=== PATIENT | female | born 1945 | race Caucasian/White ===

== ENCOUNTER 2017-10-11 09:58 | Inpatient (IN) ==
[2017-10-11] MEDS ORDERED: Ipratropium/Albuterol Neb 3 ML IH ONE (10:03)
[2017-10-11] MEDS ORDERED: Furosemide 40 MG/4 ML VIAL IVP ONE (10:03)
[2017-10-11] MEDS ORDERED: methylPREDNISolone 125 MG/2 ML VIAL IVP ONE (10:03)
--- NOTE | 2017-10-11 10:07 | Emergency Department Note ---
Disposition Clinical Impression: Congestive heart failure Qualifiers: Heart failure type: unspecified Heart failure chronicity: acute Qualified Code( s): I50.9 - Heart failure, unspecified Disposition: Admitted As Inpatient Condition: Fair Referrals: Cady Bowles MD [Primary Care Provider] - Time of Disposition: 11:56 SOB HPI - General Stated Complaint: ISAIAS Time Seen by Provider: 10/11/17 10:03 Source: patient, EMS Mode of arrival: EMS Limitations: no limitations Nursing Notes Reviewed: Yes Vital Signs Reviewed: Yes - History of Present Illness 72-year-old female with a history of COPD and CHF comes in complaining of increasing shortness of breath over the last 4-5 days. Cough that was productive of yellow sputum and did have some blood-tinged this morning. Squad was called and gave her breathing treatment prior to arrival which did improve her somewhat. Echocardiogram of in 2016 shows an EF of 45%. Pt Subjective Complaint: shortness of breath, cough Onset (ago): day(s) Context: recent illness Severity: moderate Improves with: bronchodilators Worsens with: lying flat, exertion Known history of: COPD, congestive heart failure Associated symptoms: Reports: fever, cough (Low-grade) Treatment prior to arrival: oxygen, bronchodilator Cough present: Yes Cough Description: Involuntary Cough Frequency: Intermittent Sputum Color: Yellow, [place] Tinged - Related Data Home Medications Medication Instructions Recorded Confirmed Acetaminophen [Tylenol Arthritis] 650 mg PO Q8H PRN 10/15/16 10/11/17 Albuterol Sulfate [Proair Hfa] 2 puff IH Q4H PRN 10/15/16 10/11/17 Amitriptyline [Elavil] 50 mg PO HS 10/15/16 10/11/17 Aspirin 81 mg PO DAILY 10/15/16 10/11/17 Atorvastatin Calcium [Lipitor] 20 mg PO DAILY 10/15/16 10/11/17 Bumetanide [Bumex] 1 mg PO DAILY 10/15/16 10/11/17 Cholecalciferol (D-3) [Vitamin D] 2,000 unit PO DAILY 10/15/16 10/11/17 Clotrimazole/Betameth Dip CRM 1 appl TP BID 10/15/16 10/11/17 [Lotrisone CRM] Duloxetine HCl [Cymbalta] 60 mg PO DAILY 10/15/16 10/11/17 Gabapentin [Neurontin] 800 mg PO TID 10/15/16 10/11/17 Levothyroxine [Synthroid] 75 mcg PO DAILY 10/15/16 10/11/17 OXcarbazepine [Oxcarbazepine] 600 mg PO BID 10/15/16 10/11/17 Omeprazole [PriLOSEC] 40 mg PO DAILY 10/15/16 10/11/17 Repaglinide [Prandin] 1 mg PO BID 10/15/16 10/11/17 Tramadol HCl [Ultram] 50 mg PO QID PRN 10/15/16 10/11/17 Valsartan [Diovan] 320 mg PO DAILY 10/15/16 10/11/17 Warfarin [Coumadin] 2.5 mg PO MOFR 10/15/16 10/11/17 Warfarin [Coumadin] 5 mg PO SUTUWETHSA 10/15/16 10/11/17 metFORMIN [Glucophage] 1,000 mg PO BIDWM 10/15/16 10/11/17 Diltiazem HCl [Diltiazem 24Hr Cd] 360 mg PO DAILY 10/11/17 10/11/17 Insulin Glargine,Hum.rec.anlog 25 unit SQ HS 10/11/17 10/11/17 [Basaglar Kwikpen U-100] Metoprolol Succinate [Toprol Xl] 50 mg PO DAILY 10/11/17 10/11/17 Allergies Allergy/AdvReac Type Severity Reaction Status Date / Time codeine Allergy Headache Verified 04/10/15 14:48 lisinopril Allergy Cough Verified 04/10/15 14:48 carbamazepine [From Tegretol] AdvReac Anaphylaxis Verified 04/10/15 14:48 All systems ED: reviewed and negative except as stated. Constitutional: Denies: fever, chills, weakness, weight change Eyes: Denies: eye pain, eye discharge, vision change ENT ED: Denies: ear pain, throat pain, dental pain, hearing loss, epistaxis, congestion, dysphagia Cardiovascular: Denies: chest pain, palpitations, dyspnea on exertion, edema, syncope Respiratory: Reports: cough, dyspnea, wheezes. Denies: hemoptysis, stridor Gastrointestinal: Denies: abdominal pain, nausea, vomiting, diarrhea, constipation, hematemesis, melena, hematochezia Genitourinary: Denies: dysuria, frequency, hematuria, discharge Musculoskeletal: Denies: back pain, neck pain, arthralgia, myalgia Integumentary: Denies: rash, abrasion, lesions Neurological: Denies: headache, weakness, numbness, paresthesias, confusion, abnormal gait, vertigo Psychiatric: Denies: anxiety, depression, suicidal thoughts, homicidal thoughts , auditory hallucinations, visual hallucinations Endocrine: Denies: fatigue Hematological/Lymphatic: Denies: easy bleeding, easy bruising Allergic/Immunologic: Denies: facial swelling, urticaria Past Medical History - Past Medical History Psychiatric history: Reports: no psych history - Social History Smoking Status: Never smoker Smokeless Tobacco Status: No Alcohol use: Reports: none Drug use: Reports: none Physical Exam - General Limitations: no limitations General appearance: alert, in no apparent distress - Head Head exam: atraumatic, normocephalic, normal inspection - Eye Eye exam: Present: normal appearance, PERRL, EOMI - ENT ENT exam: normal exam, normal oropharynx, mucous membranes moist - Neck Neck exam: Present: normal inspection, full ROM, trachea midline - Chest Chest inspection: Present: normal inspection, symmetric chest wall rise - Respiratory Respiratory exam: Present: wheezes, accessory muscle use, prolonged expiratory phase - Cardiovascular Cardiovascular exam: Present: regular rate, normal rhythm, normal heart sounds - Abdominal Exam Abdominal exam: Present: soft, Non-Tender. Absent: tenderness, distention, guarding, rebound, rigidity - Extremities Exam Extremities exam: Present: normal inspection, full ROM. Absent: tenderness, pedal edema - Expanded Lower Extremity Exam Neurovascular/Tendon exam: Absent: motor deficit, sensory deficit, tendon deficit Gait: observed and normal - Back Exam Back exam: Present: normal inspection, full ROM. Absent: tenderness - Neurological Exam Neurological exam: Present: alert, oriented X3 - Psychiatric Psychiatric exam: Present: normal affect, normal mood - Skin Skin exam: Present: warm, dry, intact, normal color Course - Reevaluation(s) Reevaluation #1: 72-year-old female with history CHF comes in with increasing shortness of breath. Chest x-ray shows congestive changes BNP is elevated. Patient will be admitted for further evaluation and treatment. Time: 11:56 - Consultations Consultation #1: Discussed with Dr. Duncan, admit Time: 13:22 Vital Signs Temperature 98.7 F 10/11/17 10:00 Pulse Rate 85 10/11/17 10:00 Respiratory Rate 29 10/11/17 10:00 Blood Pressure 173/87 10/11/17 10:00 O2 Sat by Pulse Oximetry 91 10/11/17 10:00 Temperature 98.7 F 10/11/17 10:00 Pulse Rate 85 10/11/17 10:00 Respiratory Rate 22 10/11/17 10:14 Blood Pressure 173/87 10/11/17 10:00 O2 Sat by Pulse Oximetry 92 10/11/17 10:14 Oxygen Delivery Oxygen Delivery Nasal Cannula Shortness of Breath/Dyspnea - Lab Data Result diagrams: 10/11/17 10:10 10/11/17 10:10 Lab Results 10/11/17 10/11/17 10/11/17 Range/Units 10:10 10:10 10:10 WBC 10.0 (4.3-11.1) K/mcL RBC 4.35 (3.82-4.97) M/mcL Hgb 11.5 (11.5-15.4) g/dL Hct 35.9 (35.3-44.9) % MCV 82.5 L (83.0-100.0) fL MCH 26.4 L (28.0-33.3) pg MCHC 32.0 (31.6-35.5) g/dL RDW 17.6 H (11.5-14.5) % Plt Count 294 (140-400) K/mcL MPV 9.5 (9.4-12.4) fL Immature Gran % 0.3 (0-4) % Seg Neutrophils % 62.6 % Lymphocytes % 23.7 % Monocytes % 11.7 % Eosinophils % 1.2 % Basophils % 0.5 % Neutrophils # 6.2 (1.6-8.9) K/mcL Lymphocytes # 2.4 (0.6-4.6) K/mcL Monocytes # 1.2 (0.0-1.3) K/mcL Eosinophils # 0.1 (0.0-0.6) K/mcL Basophils # 0.1 (0.0-0.2) K/mcL Sodium 138 (136-145) mEq/L Potassium 3.7 (3.5-5.1) mEq/L Chloride 99 (98-107) mEq/L Carbon Dioxide 28 (23-29) mEq/L BUN 10 (8-23) mg/dL Creatinine 0.53 L (0.60-1.20) mg/dL Est GFR ( Amer) > 60 (> 60) Est GFR (Non-Af Amer) > 60 (> 60) BUN/Creatinine Ratio 19 (6-26) Glucose 192 H (70-105) mg/dL Calculated Osmolality 290 (280-300) Lactic Acid 3.0 H (0.5-2.2) mmol/L Calcium 9.1 (8.6-10.3) mg/dL Troponin I < 0.03 (< 0.04) ng/mL B-Natriuretic Peptide (Less than 100) pg/mL Urine Color (Yellow) Urine Clarity (Clear) Urine pH (5.0-8.0) pH Units Ur Specific [place] (1.010-1.025) Urine Protein (Neg-Trace) mg/dL Urine Glucose (UA) (Normal) mg/dL Urine Ketones (Negative) mg/dL Urine Blood (Negative) Urine Nitrite (Negative) Urine Bilirubin (Negative) Urine Urobilinogen (Normal) mg/dL Ur Leukocyte Esterase (Negative) Urine Microscopic RBC (0-3) per hpf Urine Microscopic WBC (0-3) per hpf Ur Squamous Epith Cells (None-Few) per lpf Urine Bacteria (None-Few) per hpf Hyaline Casts (None-Few) per lpf Ur Culture Indicated? (NO) 10/11/17 10/11/17 10/11/17 Range/Units 10:10 10:36 12:32 WBC (4.3-11.1) K/mcL RBC (3.82-4.97) M/mcL Hgb (11.5-15.4) g/dL Hct (35.3-44.9) % MCV (83.0-100.0) fL MCH (28.0-33.3) pg MCHC (31.6-35.5) g/dL RDW (11.5-14.5) % Plt Count (140-400) K/mcL MPV (9.4-12.4) fL Immature Gran % (0-4) % Seg Neutrophils % % Lymphocytes % % Monocytes % % Eosinophils % % Basophils % % Neutrophils # (1.6-8.9) K/mcL Lymphocytes # (0.6-4.6) K/mcL Monocytes # (0.0-1.3) K/mcL Eosinophils # (0.0-0.6) K/mcL Basophils # (0.0-0.2) K/mcL Sodium (136-145) mEq/L Potassium (3.5-5.1) mEq/L Chloride (98-107) mEq/L Carbon Dioxide (23-29) mEq/L BUN (8-23) mg/dL Creatinine (0.60-1.20) mg/dL Est GFR ( Amer) (> 60) Est GFR (Non-Af Amer) (> 60) BUN/Creatinine Ratio (6-26) Glucose (70-105) mg/dL Calculated Osmolality (280-300) Lactic Acid 4.1 H* (0.5-2.2) mmol/L Calcium (8.6-10.3) mg/dL Troponin I (< 0.04) ng/mL B-Natriuretic Peptide 417 H (Less than 100) pg/mL Urine Color Yellow (Yellow) Urine Clarity Cloudy A (Clear) Urine pH 6.0 (5.0-8.0) pH Units Ur Specific [place] 1.019 (1.010-1.025) Urine Protein >=300 H (Neg-Trace) mg/dL Urine Glucose (UA) Normal (Normal) mg/dL Urine Ketones Negative (Negative) mg/dL Urine Blood Trace H (Negative) Urine Nitrite Negative (Negative) Urine Bilirubin Negative (Negative) Urine Urobilinogen Normal (Normal) mg/dL Ur Leukocyte Esterase Moderate H (Negative) Urine Microscopic RBC 0-3 (0-3) per hpf Urine Microscopic WBC TNTC H (0-3) per hpf Ur Squamous Epith Cells Few (None-Few) per lpf Urine Bacteria Many H (None-Few) per hpf Hyaline Casts None Seen (None-Few) per lpf Ur Culture Indicated? YES A (NO) - EKG Data EKG attestation: Yes I reviewed and interpreted this EKG. EKG results narrative: Electronic pacemaker.
[2017-10-11 10:27] LABS: Basophils # 0.1 K/mcL (0.0-0.2); Basophils % 0.5 %; Eosinophils # 0.1 K/mcL (0.0-0.6); Eosinophils % 1.2 %; Hematocrit 35.9 % (35.3-44.9); Hemoglobin 11.5 g/dL (11.5-15.4); Immature Granulocytes % 0.3 % (0-4); Lymphocytes # 2.4 K/mcL (0.6-4.6); Lymphocytes % 23.7 %; Mean Corpuscular Hemoglobin 26.4 pg (28.0-33.3); Mean Corpuscular Volume 82.5 fL (83.0-100.0); Mean Platelet Volume 9.5 fL (9.4-12.4); Monocytes # 1.2 K/mcL (0.0-1.3); Monocytes % 11.7 %; Neutrophils # 6.2 K/mcL (1.6-8.9); Platelet Count 294 K/mcL (140-400); Red Blood Count 4.35 M/mcL (3.82-4.97); Red Cell Distribution Width 17.6 % (11.5-14.5); Segmented Neutrophils % 62.6 %
[2017-10-11 10:52] LABS: BUN/Creatinine Ratio 19 (6-26); Blood Urea Nitrogen 10 mg/dL (8-23); Calcium 9.1 mg/dL (8.6-10.3); Chloride 99 mEq/L (98-107); Glucose 192 mg/dL (70-105); Osmolality,Calculated 290 (280-300); Potassium 3.7 mEq/L (3.5-5.1); Sodium 138 mEq/L (136-145); Troponin I < 0.03 ng/mL (< 0.04); eGFR For African Americans > 60 (> 60); eGFR For Non-African Americans > 60 (> 60)
[2017-10-11 11:16] LABS: Carbon Dioxide 28 mEq/L (23-29)
[2017-10-11 11:59] LABS: Bilirubin,Urine Negative (Negative); Blood,Urine Trace (Negative); Clarity,Urine Cloudy (Clear); Color,Urine Yellow (Yellow); Glucose,Urine (UA) Normal (Normal); Ketones,Urine Negative (Negative); Leukocyte Esterase,Urine Moderate (Negative); Nitrite,Urine Negative (Negative); Protein,Urine >=300 mg/dL (Neg-Trace); Specific Gravity,Urine 1.019 (1.010-1.025); Urobilinogen,Urine Normal (Normal)
[2017-10-11 12:02] LABS: Bacteria,Urine Many per hpf (None-Few); Hyaline Casts,Urine None Seen per lpf (None-Few); RBC,Urine 0-3 per hpf (0-3); Squamous Epithelial Cell,Urine Few per lpf (None-Few); WBC,Urine TNTC per hpf (0-3)
[2017-10-11] MEDS ORDERED: cefTRIAXone 1,000 MG in Water for inj. (sterile) 20 ML 10 ML IVP ONE (13:31)
[2017-10-11] MEDS ORDERED: Naloxone 0.4 MG/ML INJ IVP PRN (16:26)
[2017-10-11] MEDS ORDERED: traMADol 50 MG TABLET PO PRN (16:31)
--- NOTE | 2017-10-11 16:43 | Internal Med History&Physical ---
Date of Encounter: 10/11/17 Time of Encounter: 16:38 Internal Medicine - H&P: HPI Chief complaint: shortness of breath Admitted From: Emergency Dept Plans for Post Hospital Care: Home History of present illness: Ms. Watson is a 72 year old female was a background medical history of her diabetes, hypertension, dyslipidemia, atrial fibrillation, presently on the Coumadin, morbid obesity. Patient came to emergency room for worsening shortness of breath for past 1 week. In last 24 hours her shortness of breath has gradually worsened. Patient was unable to walk even a few steps at home and that was the reason they decided to come to emergency room for further evaluation. Patient denies chest pain, nausea, vomiting, dizziness and diarrhea. Workup in the emergency room: Patient was evaluated in the emergency room. Baseline labs were drawn. Chest x-ray was suggestive of a pulmonary edema. Urine analysis was suggestive of a urinary tract infection. Reason for admission: Acute decompensated congestive heart failure likely secondary to the underlying urinary tract infection. Family history: Noncontributory. Past Med Surg Social Fam HX - Past Medical History Medical history: arthritis, atrial fibrillation, CHF, COPD, DVT, diabetes, GERD , hyperlipidemia, hypertension, thyroid disease, venous stasis Psychiatric history: no psych history - Past Surgical History Surgical History: appendectomy, hysterectomy - Social History Smoking Status: Never smoker Smokeless Tobacco Status: No Alcohol use: none Drug use: none - Family History Mother Living Status: Age at : 60 Cause of : [place] Hx Family Cardiac Disorders: Yes Father Living Status: Age at : 80 Cause of : [place] Hx Family Cardiac Disorders: Yes Hx Family Respiratory Disorders: Yes Internal Medicine - H&P: Meds Acetaminophen [Tylenol Arthritis] 650 mg PO Q8H PRN 10/15/16 [History] Albuterol Sulfate [Proair Hfa] 2 puff IH Q4H PRN 10/15/16 [History] Amitriptyline [Elavil] 50 mg PO HS 10/15/16 [History] Aspirin 81 mg PO DAILY 10/15/16 [History] Atorvastatin Calcium [Lipitor] 20 mg PO DAILY 10/15/16 [History] Bumetanide [Bumex] 1 mg PO DAILY 10/15/16 [History] Cholecalciferol (D-3) [Vitamin D] 2,000 unit PO DAILY 10/15/16 [History] Clotrimazole/Betameth Dip CRM [Lotrisone CRM] 1 appl TP BID 10/15/16 [History] Duloxetine HCl [Cymbalta] 60 mg PO DAILY 10/15/16 [History] Gabapentin [Neurontin] 800 mg PO TID 10/15/16 [History] Levothyroxine [Synthroid] 75 mcg PO DAILY 10/15/16 [History] OXcarbazepine [Oxcarbazepine] 600 mg PO BID 10/15/16 [History] Omeprazole [PriLOSEC] 40 mg PO DAILY 10/15/16 [History] Repaglinide [Prandin] 1 mg PO BID 10/15/16 [History] Tramadol HCl [Ultram] 50 mg PO QID PRN 10/15/16 [History] Valsartan [Diovan] 320 mg PO DAILY 10/15/16 [History] Warfarin [Coumadin] 2.5 mg PO MOFR 10/15/16 [History] Warfarin [Coumadin] 5 mg PO SUTUWETHSA 10/15/16 [History] metFORMIN [Glucophage] 1,000 mg PO BIDWM 10/15/16 [History] Diltiazem HCl [Diltiazem 24Hr Cd] 360 mg PO DAILY 10/11/17 [History] Insulin Glargine,Hum.rec.anlog [Basaglar Kwikpen U-100] 25 unit SQ HS 10/11/17 [ History] Metoprolol Succinate [Toprol Xl] 50 mg PO DAILY 10/11/17 [History] 3 Allergy/AdvReac Type Severity Reaction Status Date / Time codeine Allergy Headache Verified 04/10/15 14:48 lisinopril Allergy Cough Verified 04/10/15 14:48 carbamazepine [From Tegretol] AdvReac Anaphylaxis Verified 04/10/15 14:48 All Systems PM: A 10-system review of systems was performed and is negative for pertinent findings except as documented above in the HPI. - Constitutional Constitutional: no chills, no fever(s), no night sweats - EENT Eyes: no change in vision, no discharge, no pain, no photophobia Ears: no ear discharge, no ear pain, no tinnitus Nose, mouth and throat: no dysphagia, no nasal discharge, no neck pain, no sore throat - Cardiovascular Cardiovascular ROS IM: dyspnea, dyspnea on exertion, no chest pain, no diaphoresis, no lightheadedness, no palpitations, no syncope - Respiratory Respiratory: no cough, no dyspnea, no wheezing, no excessive phlegm production - Gastrointestinal Gastrointestinal: no abdominal pain, no diarrhea, no hematemesis, no hematochezia, no melena, no nausea, no vomiting - Genitourinary Genitourinary: dysuria, no change in urinary stream, no flank pain, no hematuria - Musculoskeletal Musculoskeletal ROS IM: no numbness, no tingling - Integumentary Integumentary IM: no rash, no unusual bruising - Neurological Neurological ROS: no confusion, no convulsions, no focal weakness, no numbness, no tingling, no tremor(s) - Hematologic/Lymphatic Hematologic/Lymphatic: no easy bruising - Constitutional Vitals: Temp Pulse Resp BP Pulse Ox 100.2 F H 82 44 159/74 90 10/11/17 15:05 10/11/17 15:05 10/11/17 15:05 10/11/17 15:05 10/11/17 15:12 General appearance: Present: A&O X 3, pleasant, no acute distress, answers questions appropriately - Head Head exam: Present: atraumatic, normocephalic - Eye Eye exam: Present: PERRL, conjuntiva pink, sclera anicteric Pupils: Present: PERRL - Neck Neck exam general surgery: Present: supple, trachea midline. Absent: lymphadenopathy - Respiratory Respiratory exam: Present: CTAB. Absent: accessory muscle use, rales, rhonchi, wheezes - Cardiovascular Cardiovascular exam: Present: RRR, +S1, +S2. Absent: diastolic murmur, gallop, rubs, systolic murmur - GI/Abdominal GI/Abdominal exam: Present: normal bowel sounds, soft, no peritoneal signs. Absent: distended, tenderness - Extremities Exam Extremities exam: Present: warm, radial pulses palpable and symmetrical. Absent : calf tenderness, cyanotic, pedal edema - Neurological Exam Neurological exam: Present: CN II-XII intact, oriented X3, no focal deficits. Absent: pronater drift, facial droop, speech deficit - Skin Skin exam: Present: dry, intact Internal Med - H&P Results - Labs CBC & Chem 7: 10/11/17 10:10 10/11/17 10:10 - Assessment and plan (1) Congestive heart failure Current Visit: Yes Status: Acute Assessment and plan: 72/female Patient does have a systolic congestive heart failure as per the echocardiogram in 2016. At this time patient has a underlying urinary tract infection which must have an elevated this systolic congestive heart failure. We will continue intravenous Lasix 40 mg twice a day. We will check labs tomorrow morning for potassium. Close monitoring of the respiratory status. Echocardiogram ordered. I examined this patient in the emergency department room #33. Patient's family member was at bedside. Plan of care explained to them at length. They verbalize understanding. Qualifiers: Heart failure type: unspecified Heart failure chronicity: acute Qualified Code(s): I50.9 - Heart failure, unspecified (2) Atrial fibrillation Current Visit: No Status: Acute Assessment and plan: Patient is known to have atrial flutter ablation. At this point patient is in controlled ventricular rate. Anticoagulation: Coumadin Rate control: Cardizem/metoprolol. Qualifiers: Atrial fibrillation type: paroxysmal Qualified Code(s): I48.0 - Paroxysmal atrial fibrillation (3) Urinary tract infection Current Visit: Yes Status: Acute Assessment and plan: Patient does have a urinary tract infection. patient complains of dysuria. Urine analysis and urine culture sent. Patient was started on ceftriaxone. Noted that patient has a elevated lactic acid upon admission. We will closely monitor her lactic acid. I will [place] this case to night team for a further follow-up. Qualifiers: Urinary tract infection type: acute cystitis Hematuria presence: without hematuria Qualified Code(s): N30.00 - Acute cystitis without hematuria (4) Diabetes mellitus Current Visit: Yes Status: Acute Assessment and plan: Patient is known to have her type 2 diabetes mellitus. We will resume her home insulin dose. At this point we will follow the instructions from the subcutaneous insulin order set. Qualifiers: Diabetes mellitus type: type 2 Diabetes mellitus usp insulin use: without usp use Diabetes mellitus complication status: with other specified complication Qualified Code(s): E11.69 - Type 2 diabetes mellitus with other specified complication (5) Hypertension Current Visit: Yes Status: Acute Assessment and plan: Patient is known to have essential hypertension. We will resume her home medication. Close monitoring of the blood pressure. Qualifiers: Hypertension type: essential hypertension Qualified Code(s): I10 - Essential (primary) hypertension (6) DVT prophylaxis Current Visit: Yes Status: Acute Assessment and plan: Coumadin Medical decision making: Suspect this patient has a moderate to severe risk of worsening in spite of being on appropriate medication due to the underlying chronic comorbid condition. - Time Spent With Patient Total time spent is greater than 50% in coordination of care (as documented) at patient's floor/unit and/or counseling patient:
[2017-10-11] MEDS ORDERED: D5% in Water 1,000 ML IVC PRN (16:44)
[2017-10-11] MEDS ORDERED: Dextrose Gel 15 GM/37.5 ML TUBE PO PRN ×2 (16:44)
[2017-10-11] MEDS ORDERED: *HR* Dextrose 50 % in Water (Syg) 50 ML SYRINGE IVP PRN (16:44)
[2017-10-11] MEDS ORDERED: Ipratropium/Albuterol Neb 3 ML IH PRN (17:05)
[2017-10-11 17:38] LABS: ABG Base Excess 4 mEq/L (-2 to 3); ABG HCO3 29 mEq/L (21-27); ABG Oxygen Saturation 96 % (95-98); ABG PCO2 44 mmHg (35-45); ABG PH 7.43 pH Units (7.32-7.45); ABG PO2 80 mmHg (85-104); ABG TCO2 30 mEq/L (20-26)
[2017-10-11] MEDS ORDERED: *HR* Warfarin 5 MG TABLET PO SCH (18:00)
[2017-10-11] MEDS ORDERED: NON-FORMULARY MEDICATION 1 EACH EACH (Insulin Glargine,Hum.Rec.Anlog [Basaglar Kwikpen U-1 SQ SCH (21:00)
[2017-10-11] MEDS: OXcarbazepine 150 MG TABLET PO SCH (21:35)
[2017-10-11] MEDS: Insulin DETEMIR 100 UNIT/ML X5UNITS SQ SCH (21:36)
[2017-10-11] MEDS: Clotrimazole/Betameth Dip CRM 45 APPL/45 GM TUBE TP SCH (21:36)
[2017-10-11] MEDS: Gabapentin 400 MG CAPSULE PO SCH (21:36)
[2017-10-11] MEDS: Furosemide 40 MG/4 ML VIAL IVP SCH (21:36)
[2017-10-11] MEDS: *HR* Repaglinide 1 MG TABLET PO SCH (21:36)
[2017-10-12 03:23] LABS: Basophils % 0.2 %; Hematocrit 32.2 % (35.3-44.9); Hemoglobin 10.2 g/dL (11.5-15.4); Immature Granulocytes % 0.8 % (0-4); Lymphocytes # 1.2 K/mcL (0.6-4.6); Mean Corpuscular HGB Conc 31.7 g/dL (31.6-35.5); Mean Corpuscular Hemoglobin 25.8 pg (28.0-33.3); Mean Corpuscular Volume 81.3 fL (83.0-100.0); Mean Platelet Volume 9.8 fL (9.4-12.4); Monocytes # 1.1 K/mcL (0.0-1.3); Monocytes % 11.4 %; Neutrophils # 7.3 K/mcL (1.6-8.9); Nucleated Red Blood Cells 0.2 /100 WBC (0); Platelet Count 276 K/mcL (140-400); Red Blood Count 3.96 M/mcL (3.82-4.97); Red Cell Distribution Width 17.6 % (11.5-14.5); Segmented Neutrophils % 75.6 %
[2017-10-12 03:24] LABS: Prothrombin Time 33.5 Seconds (9.4-12.1)
[2017-10-12 03:26] LABS: Activated Partial Thrombo Time 37.4 Seconds (26.0-36.0)
[2017-10-12 03:44] LABS: Troponin I < 0.03 ng/mL (< 0.04)
[2017-10-12 03:45] LABS: Alanine Aminotransferase 14 Units/L (7-52); Albumin 3.4 g/dL (3.5-5.7); Albumin/Globulin Ratio 1.2 (1.1-2.2); Alkaline Phosphatase 64 Units/L (34-104); Aspartate Amino Transferase 22 Units/L (13-39); BUN/Creatinine Ratio 20 (6-26); Bilirubin,Total 0.2 mg/dL (0.3-1.0); Blood Urea Nitrogen 13 mg/dL (8-23); Calcium 8.6 mg/dL (8.6-10.3); Carbon Dioxide 30 mEq/L (23-29); Chloride 100 mEq/L (98-107); Chol/HDL Ratio 3.2 (0-4.9); Cholesterol 136 mg/dL (< 200); Globulin 2.9 g/dL (2.4-3.5); Glucose 179 mg/dL (70-105); HDL Cholesterol 43 mg/dL (40-59); LDL Cholesterol,Calculated 72 mg/dL (0-99); Magnesium 1.5 mg/dL (1.6-2.6); Osmolality,Calculated 291 (280-300); Phosphorous 3.2 mg/dL (2.7-4.5); Potassium 3.7 mEq/L (3.5-5.1); Sodium 138 mEq/L (136-145); Total Protein 6.3 g/dL (6.4-8.9); Triglycerides 107 mg/dL (< 150); eGFR For African Americans > 60 (> 60); eGFR For Non-African Americans > 60 (> 60)
[2017-10-12] MEDS ORDERED: *HR* Warfarin 5 MG TABLET PO SCH (09:00)
[2017-10-12] MEDS: *HR* Repaglinide 1 MG TABLET PO SCH ×2 (10:50→21:05)
[2017-10-12] MEDS: Gabapentin 400 MG CAPSULE PO SCH ×3 (10:50→21:05)
[2017-10-12] MEDS: OXcarbazepine 150 MG TABLET PO SCH ×2 (10:50→21:05)
[2017-10-12] MEDS: Diltiazem CD (24hr) 180 MG CAPSULE PO SCH (10:50)
[2017-10-12] MEDS: Furosemide 40 MG/4 ML VIAL IVP SCH ×2 (10:51→21:05)
[2017-10-12] MEDS: cefTRIAXone 1,000 MG in Water for inj. (sterile) 20 ML 10 ML IVP SCH (10:51)
[2017-10-12] MEDS: Valsartan 160 MG TABLET PO SCH (10:51)
[2017-10-12] MEDS: Aspirin 81 MG TAB.CHEW PO SCH (10:51)
[2017-10-12] MEDS: Metoprolol XL (24 HR) Succ 50 MG TAB.ER.24H PO SCH (10:51)
[2017-10-12] MEDS: Insulin LISPRO 300 UNITS/3 ML VIAL SQ SCH ×3 (10:53→20:54)
[2017-10-12] MEDS: Clotrimazole/Betameth Dip CRM 45 APPL/45 GM TUBE TP SCH ×2 (11:17→21:06)
--- NOTE | 2017-10-12 13:15 | Electrocardiograph Report ---
[address] [address] Test Date: 2017-10-11 Pat Name: Julissa Watson Department: 104 Room: 2N04 Gender: F Tariff Clerk: [id number] : [id number] Requested By: Kieran Jolley Order Number: [id number] Reading MD: Bryce Arellano Measurements Intervals [place] Rate: 86 P: 105 MI: 94 QRS: 22 QRSD: 176 T: 106 QT: 415 QTc: 459 Interpretive Statements PROBABLY SINUS RHYTHM WITH PVCS LEFT BUNDLE BRANCH BLOCK BASELINE ARTIFACT COMPLICATES ACCURATE INTERPRETATION Electronically Signed On 10-12-2017 10:13:55 EDT by Bryce Arellano
--- NOTE | 2017-10-12 15:14 | Internal Med Progress Note ---
Date of Encounter: 10/12/17 Time of Encounter: 15:12 - Assessment and plan (1) Congestive heart failure Current Visit: Yes Status: Acute Assessment and plan: Acute on chronic hypoxic respiratory failure secondary to Acute pulmonary edema likely secondary to acute diastolic dysfunction in combination with a possible acute COPD exacerbation due to acute bacterial bronchitis (COPD never diagnosed) Patient does have a systolic congestive heart failure as per the echocardiogram in 2016, ejection fraction was 45% back then New echocardiogram shows an ejection fraction of 55-60% Strict I's and O's and daily weight continue intravenous Lasix 40 mg twice a day. *Solu-Medrol, continue Rocephin due to UTI DuoNeb nebs, oxygen therapy, uses 2 L at night at home Qualifiers: Heart failure type: diastolic Heart failure chronicity: acute Qualified Code(s): I50.31 - Acute diastolic (congestive) heart failure (2) Atrial fibrillation Current Visit: No Status: Acute Assessment and plan: Continue Coumadin per pharmacy dosing Continue Cardizem/metoprolol. Qualifiers: Atrial fibrillation type: paroxysmal Qualified Code(s): I48.0 - Paroxysmal atrial fibrillation (3) Urinary tract infection Current Visit: Yes Status: Acute Assessment and plan: urinary tract infection. Urine culture is growing a gram-negative liliana, has grown pansensitive Escherichia coli in the past next Continue Rocephin day #2 Qualifiers: Urinary tract infection type: acute cystitis Hematuria presence: without hematuria Qualified Code(s): N30.00 - Acute cystitis without hematuria (4) Diabetes mellitus Current Visit: Yes Status: Acute Assessment and plan: Insulin sliding scale. Qualifiers: Diabetes mellitus type: type 2 Diabetes mellitus fdc insulin use: without fdc use Diabetes mellitus complication status: with other specified complication Qualified Code(s): E11.69 - Type 2 diabetes mellitus with other specified complication (5) Hypertension Current Visit: Yes Status: Acute Assessment and plan: Stable Qualifiers: Hypertension type: essential hypertension Qualified Code(s): I10 - Essential (primary) hypertension (6) DVT prophylaxis Current Visit: Yes Status: Acute Assessment and plan: Coumadin . - Time Spent With Patient Total time spent is greater than 50% in coordination of care (as documented) at patient's floor/unit and/or counseling patient: - Subjective Interval history: Still feeling short of breath, denies any chest pain, has been coughing up brownish phlegm, denies any abdominal pain, has been expressing mild dysuria, no fevers - Constitutional Vitals: Temp Pulse Resp BP Pulse Ox 98.8 F 78 22 128/68 99 10/12/17 11:20 10/12/17 11:20 10/12/17 11:20 10/12/17 11:20 10/12/17 11:20 General appearance: Present: A&O X 3, morbidly obese, pleasant, no acute distress, answers questions appropriately - Head Head exam: Present: atraumatic, normocephalic - Eye Eye exam: Present: PERRL, conjuntiva pink, sclera anicteric Pupils: Present: PERRL - Neck Neck exam general surgery: Present: supple, trachea midline. Absent: lymphadenopathy - Respiratory Respiratory exam: Present: CTAB, rales, wheezes (Diffuse wheezing and crackles) . Absent: accessory muscle use, rhonchi - Cardiovascular Cardiovascular exam: Present: RRR, +S1, +S2. Absent: diastolic murmur, gallop, rubs, systolic murmur - GI/Abdominal GI/Abdominal exam: Present: normal bowel sounds, soft, no peritoneal signs. Absent: distended, tenderness - Extremities Exam Extremities exam: Present: pedal edema (+1 pitting edema), warm, radial pulses palpable and symmetrical. Absent: calf tenderness, cyanotic - Neurological Exam Neurological exam: Present: CN II-XII intact, oriented X3, no focal deficits. Absent: pronater drift, facial droop, speech deficit - Skin Skin exam: Present: dry, intact Internal Medicine: Result - Labs CBC & Chem 7: 10/12/17 03:00 10/12/17 03:00 Labs: Short CBC 10/12/17 Range/Units 03:00 WBC 9.7 (4.3-11.1) K/mcL Hgb 10.2 L (11.5-15.4) g/dL Hct 32.2 L (35.3-44.9) % Plt Count 276 (140-400) K/mcL Neutrophils # 7.3 (1.6-8.9) K/mcL BMP 10/12/17 03:00 Sodium 138 Potassium 3.7 Chloride 100 Carbon Dioxide 30 H BUN 13 Creatinine 0.64 Glucose 179 H Calcium 8.6 Cardiac Enzymes 10/12/17 Range/Units 03:00 Troponin I < 0.03 (< 0.04) ng/mL Liver Function 10/12/17 Range/Units 03:00 Total Bilirubin 0.2 L (0.3-1.0) mg/dL AST 22 (13-39) Units/L ALT 14 (7-52) Units/L Alkaline Phosphatase 64 (34-104) Units/L Albumin 3.4 L (3.5-5.7) g/dL - ABG Interpretation ABG results: ABG ABG pH 7.43 pH Units (7.32-7.45) 10/11/17 17:28 ABG pCO2 44 mmHg (35-45) 10/11/17 17:28 ABG pO2 80 mmHg (85-104) L 10/11/17 17:28 ABG O2 Saturation 96 % (95-98) 10/11/17 17:28 PT/INR, D-dimer PT 33.5 Seconds (9.4-12.1) H 10/12/17 03:00 - Impressions Impressions Echocardiogram 10/12/17 16:47 Impressions: Technically sub-optimal due to body habitus. LVEF 55-60%. Mildly dilated left ventricle. Indeterminate diastolic function. Normal right ventricular structure and function. Atypical septal motion consistent with paced rhythm. Mild aortic stenosis suggested by Doppler. Mean gradient 19 mmHg. Mild pulmonary hypertension. A device lead was visualized in the right atrium and right ventricle. Left Ventricular Wall Motion: Rest Echo Findings All wall segments showed normal motion. Findings: Study Quality * Technically sub-optimal due to body habitus. ECG Findings * Paced rhythm. Left Ventricle * LVEF 55-60%. * Mildly dilated left ventricle. * Indeterminate diastolic function. * Atypical septal motion consistent with paced rhythm. Right Ventricle * Normal right ventricular structure and function. Left Atrium * Moderately dilated left atrium. Right Atrium * Normal right atrial size. Aortic Valve * Aortic valve not well visualized. * Trace aortic regurgitation. * Mild aortic stenosis suggested by Doppler. Mean gradient 19 mmHg. Mitral Valve * Normal mitral valve structure and function. * No mitral stenosis. * Trace mitral regurgitation. Tricuspid Valve * Normal tricuspid valve structure and function. * Trace tricuspid regurgitation. * Mild pulmonary hypertension. Pulmonic Valve * Normal pulmonic valve structure and function. * No pulmonic regurgitation. Aorta * Normally sized aortic root. Pericardium * The pericardium appears normal. IVC * Normal IVC dimensions and inspiratory collapse. Device lead * A device lead was visualized in the right atrium and right ventricle. Pulmonary Artery * Normal visualized portions of the main pulmonary artery. Consult Discharge Plan - Plan Referrals: Cady Bowles MD [Primary Care Provider] - 10/16/17 10:00 am
[2017-10-12] MEDS: MethylPREDNISolone 40 MG/ML VIAL IVP SCH (15:47)
[2017-10-12] MEDS: Ipratropium/Albuterol Neb 3 ML IH SCH ×2 (16:10→22:13)
[2017-10-12] MEDS ORDERED: Warfarin perPT PO PRN ×2 (18:00)
[2017-10-12] MEDS: Insulin DETEMIR 100 UNIT/ML X5UNITS SQ SCH (21:05)
[2017-10-13] MEDS: MethylPREDNISolone 40 MG/ML VIAL IVP SCH ×3 (00:06→20:36)
[2017-10-13] MEDS: Ipratropium/Albuterol Neb 3 ML IH SCH ×4 (03:53→21:33)
[2017-10-13 06:40] LABS: INR 2.7; Prothrombin Time 29.9 Seconds (9.4-12.1)
[2017-10-13] MEDS: cefTRIAXone 1,000 MG in Water for inj. (sterile) 20 ML 10 ML IVP SCH (08:37)
[2017-10-13] MEDS: OXcarbazepine 150 MG TABLET PO SCH ×2 (08:40→20:36)
[2017-10-13] MEDS: Gabapentin 400 MG CAPSULE PO SCH ×3 (08:40→20:36)
[2017-10-13] MEDS: Diltiazem CD (24hr) 180 MG CAPSULE PO SCH (08:40)
[2017-10-13] MEDS: Furosemide 40 MG/4 ML VIAL IVP SCH ×2 (08:41→20:37)
[2017-10-13] MEDS: Valsartan 160 MG TABLET PO SCH (08:41)
[2017-10-13] MEDS: Aspirin 81 MG TAB.CHEW PO SCH (08:41)
[2017-10-13] MEDS: Metoprolol XL (24 HR) Succ 50 MG TAB.ER.24H PO SCH (08:41)
[2017-10-13] MEDS: *HR* Repaglinide 1 MG TABLET PO SCH ×2 (08:41→20:37)
[2017-10-13] MEDS: Clotrimazole/Betameth Dip CRM 45 APPL/45 GM TUBE TP SCH ×2 (08:42→20:43)
[2017-10-13] MEDS: Insulin LISPRO 300 UNITS/3 ML VIAL SQ SCH ×3 (08:43→17:14)
[2017-10-13] MEDS ORDERED: *HR* Warfarin 5 MG TABLET PO SCH (09:00)
[2017-10-13] MEDS: Insulin DETEMIR 100 UNIT/ML X5UNITS SQ SCH ×2 (10:51→20:42)
--- NOTE | 2017-10-13 13:16 | Event Note ---
Date of Encounter: 10/13/17 Time of Encounter: 13:13 - Cardiology Event Note Device check completed. Normal functioning device. Noted to have 2 seconds of NSVT on October 11. No other concerning findings. 3.5 years left on device. Follows with [facility].
--- NOTE | 2017-10-13 13:56 | Cardiology Consult Note ---
Addendum entered and electronically signed by Manish Andrews CNP 10/13/17 14:19 : Original Note: Date of Encounter: 10/13/17 Time of Encounter: 13:50 Assessment and Plan (1) Congestive heart failure Current Visit: Yes Status: Acute Acute on chronic diastolic CHF. TTE showed EF LVEF 55-60%. Mildly dilated left ventricle. Indeterminate diastolic function. Normal right ventricular structure and function. Atypical septal motion consistent with paced rhythm. Mild aortic stenosis suggested by Doppler. Mean gradient 19 mmHg. Mild pulmonary hypertension. A device lead was visualized in the right atrium and right ventricle. BNP 435. CXR showed mild pulmonary edema. Agree with IV lasix. Net negative 850 ml. WIll give extra IV lasix today. Continues to have orthopnea. Goal negative 1500ml for 24 hours. Low sodium diet stressed. Recommend process line operator consult. Consider increased dose bumex at discharge. Monitor Scr, dialy weights, and strict I&O. Qualifiers: Heart failure type: diastolic Heart failure chronicity: acute Qualified Code(s): I50.31 - Acute diastolic (congestive) heart failure (2) Atrial fibrillation Current Visit: No Status: Chronic H/o of afib on coumadin. SR with PAC, LBBB. Qualifiers: Atrial fibrillation type: paroxysmal Qualified Code(s): I48.0 - Paroxysmal atrial fibrillation (3) Pacemaker Current Visit: Yes Status: Acute H/o pacemaker for tachy-reina syndrome. Device check completed for artifact seen on telemetry. Normal functioning device. There was 2 sec of NSVT on 10/11/17. Discussion w patient/family: The assessment and plan as outlined above was discussed with the patient and/or family members who expressed understanding and agreement. All questions were answered. Thank you for involving us in the care of your patient. Please call with any questions. History of Present Illness Consult date: 10/13/17 Requesting physician: Kushal Brown Consult reason: CHF History of present illness: Ms. Watson is a 72-year-old female with a history of atrial fibrillation, LBBB, tachybrady syndrome, and a previous pacemaker placement, chronic venous insufficiency, and morbid obesity. She presents with the c/o SOB and cough for two weeks. Cardiology consulted for diastolic CHF exacerbation. CXR showed pulmonary edema. BNP in the 400's. A catheterization from 2010 demonstrated mild coronary disease. Reports chronic BLE edema that she take bumetadine for. Reports that she was recommended to increase her dose recently but declined due to frequent visits to the bathroom. Prior cardiac studies: TTE 04/2014: EF 50-55%. Moderate diastolic dysfunction. Mild aortic stenosis. TTE 03/24/2016: LVEF 45%. Hypokinesis of the basal to mid anteroseptal and inferoseptum. Moderate diastolic dysfunction. Normal RV size and function. Mild aortic stenosis and mitral regurgitation. Mild to moderate pulmonary hypertension. [facility] 05/2011: Left main normal. LAD 20-30% proximal stenosis. Circumflex proximal 20-30% stenosis. RCA normal. Past Med Surg Social Fam HX - Past Medical History Medical history: arthritis, atrial fibrillation, CHF, COPD, DVT, diabetes, GERD , hyperlipidemia, hypertension, thyroid disease, venous stasis Psychiatric history: no psych history - Past Surgical History Surgical History: appendectomy, hysterectomy - Social History Smoking Status: Never smoker Smokeless Tobacco Status: No Alcohol use: none Drug use: none - Family History Mother Living Status: Age at : 60 Cause of : [place] Hx Family Cardiac Disorders: Yes Father Living Status: Age at : 80 Cause of : [place] Hx Family Cardiac Disorders: Yes Hx Family Respiratory Disorders: Yes Medications and Allergies Acetaminophen [Tylenol Arthritis] 650 mg PO Q8H PRN 10/15/16 [History] Albuterol Sulfate [Proair Hfa] 2 puff IH Q4H PRN 10/15/16 [History] Amitriptyline [Elavil] 50 mg PO HS 10/15/16 [History] Aspirin 81 mg PO DAILY 10/15/16 [History] Atorvastatin Calcium [Lipitor] 20 mg PO DAILY 10/15/16 [History] Bumetanide [Bumex] 1 mg PO DAILY 10/15/16 [History] Cholecalciferol (D-3) [Vitamin D] 2,000 unit PO DAILY 10/15/16 [History] Clotrimazole/Betameth Dip CRM [Lotrisone CRM] 1 appl TP BID 10/15/16 [History] Duloxetine HCl [Cymbalta] 60 mg PO DAILY 10/15/16 [History] Gabapentin [Neurontin] 800 mg PO TID 10/15/16 [History] Levothyroxine [Synthroid] 75 mcg PO DAILY 10/15/16 [History] OXcarbazepine [Oxcarbazepine] 600 mg PO BID 10/15/16 [History] Omeprazole [PriLOSEC] 40 mg PO DAILY 10/15/16 [History] Repaglinide [Prandin] 1 mg PO BID 10/15/16 [History] Tramadol HCl [Ultram] 50 mg PO QID PRN 10/15/16 [History] Valsartan [Diovan] 320 mg PO DAILY 10/15/16 [History] Warfarin [Coumadin] 2.5 mg PO MOFR 10/15/16 [History] Warfarin [Coumadin] 5 mg PO SUTUWETHSA 10/15/16 [History] metFORMIN [Glucophage] 1,000 mg PO BIDWM 10/15/16 [History] Diltiazem HCl [Diltiazem 24Hr Cd] 360 mg PO DAILY 10/11/17 [History] Insulin Glargine,Hum.rec.anlog [Basaglar Kwikpen U-100] 25 unit SQ HS 10/11/17 [ History] Metoprolol Succinate [Toprol Xl] 50 mg PO DAILY 10/11/17 [History] 3 Allergy/AdvReac Type Severity Reaction Status Date / Time codeine Allergy Headache Verified 04/10/15 14:48 lisinopril Allergy Cough Verified 04/10/15 14:48 carbamazepine [From Tegretol] AdvReac Anaphylaxis Verified 04/10/15 14:48 All Systems Review: The remainder of the systems were reviewed and are negative Physical Examination Vital Signs, Last 4 Hours Temp Pulse Resp BP Pulse Ox 10/13/17 11:25 98.7 F 73 20 156/78 95 10/13/17 10:38 18 96 General: Conversant, No Apparent Distress, Other (morbidly obese female) HEENT: Atraumatic, Normocephaly, Mucus Membranes Moist Neck: No JVD, Normal carotid pulses Cardiac: Reg Rate and Rhythm, Normal S1 and S2, No Murmur Lungs: Normal Breath Sounds, No Wheeze, Rales, Rhonchi Neuro: Alert and responsive, No focal deficits noted Abdomen: Soft, Non-Tender Skin: No rashes noted on visualized skin Musculoskeletal: No Chest Wall Tenderness Extremities: No Clubbing, No Cyanosis, Normal Pulses, Other (BLE edema) Results 10/12/17 03:00 10/12/17 03:00 Lab Results 10/13/17 05:57 INR 2.7 - Imaging and Cardiology Echo: report reviewed - EKG Interpretation EKG results cardiology: personally reviewed (AYAKA, SR with PAC) Consult Discharge Plan - Plan Referrals: Cady Bowles MD [Primary Care Provider] - 10/16/17 10:00 am
[2017-10-13] MEDS ORDERED: Furosemide 20 MG/2 ML VIAL IVP ONE (14:15)
--- NOTE | 2017-10-13 16:53 | Internal Med Progress Note ---
Date of Encounter: 10/13/17 Time of Encounter: 09:15 - Assessment and plan (1) Acute on chronic respiratory failure Current Visit: Yes Status: Acute Assessment and plan: due to acute CHF and COPD; Qualifiers: Respiratory failure complication: hypoxia Qualified Code(s): J96.21 - Acute and chronic respiratory failure with hypoxia (2) Acute exacerbation of chronic obstructive airways disease Current Visit: Yes Status: Acute Assessment and plan: improving slowly; continue bronchodilators, ICS; taper down IV steroids as tolerated; wean down FiO2 as tolerated; nocturnal BiPAP; blood cultures negative. (3) Atrial fibrillation Current Visit: Yes Status: Chronic Assessment and plan: rate-controlled; continue Telemetry, rate control with beta korin, CCB; continue long winder tender anticoagulation with Coumadin; Qualifiers: Atrial fibrillation type: paroxysmal Qualified Code(s): I48.0 - Paroxysmal atrial fibrillation (4) Congestive heart failure Current Visit: Yes Status: Acute Assessment and plan: Echo shows preserved EF, dilated LV, indeterminate diastolic function, mild and pulmonary HTN; Cardiology consult appreciated; PPM device check showed 2sec NSVT but no other abnormality; continue diuresis with IV Lasix, fluid restriction and urine output monitoring; noted to have good urine output but not adequate; to get extra dose of Lasix per Cardiology; continue beta korin; PT/OT evaluation; Qualifiers: Heart failure type: diastolic Heart failure chronicity: acute Qualified Code(s): I50.31 - Acute diastolic (congestive) heart failure (5) Urinary tract infection Current Visit: Yes Status: Acute Assessment and plan: urine culture grows GNR; continue IV Rocephin and f/up final cultures; Qualifiers: Urinary tract infection type: acute cystitis Hematuria presence: without hematuria Qualified Code(s): N30.00 - Acute cystitis without hematuria (6) Diabetes mellitus Current Visit: Yes Status: Chronic Assessment and plan: noted to have steroid-induced hyperglycemia; increase dose of Levemir; continue Accucheck blood glucose monitoring and basal bolus insulin regimen; diabetic diet; Qualifiers: Diabetes mellitus type: type 2 Diabetes mellitus usp insulin use: without long winder tender use Diabetes mellitus complication status: with unspecified complications Qualified Code(s): E11.8 - Type 2 diabetes mellitus with unspecified complications (7) Hypertension Current Visit: Yes Status: Chronic Qualifiers: Hypertension type: essential hypertension Qualified Code(s): I10 - Essential (primary) hypertension (8) DVT prophylaxis Current Visit: Yes Status: Acute - Time Spent With Patient Total time spent is greater than 50% in coordination of care (as documented) at patient's floor/unit and/or counseling patient: - Subjective Interval history: Reports feeling better; improving shortness of breath and chest pain; continues to have cough and chest congestion; reports this is the worst episode of dyspnea so far; has chronic leg swelling and exertional dyspnea; has home O2 and CPAP; - Constitutional Vitals: Temp Pulse Resp BP Pulse Ox 98.7 F 72 18 144/70 100 10/13/17 15:55 10/13/17 15:55 10/13/17 15:55 10/13/17 15:55 10/13/17 15:55 General appearance: Present: A&O X 3, morbidly obese, answers questions appropriately - Respiratory Respiratory exam: Present: CTAB (coarse breath sounds B/L), wheezes (B/L posterior wheezing). Absent: accessory muscle use, rales, rhonchi - Cardiovascular Cardiovascular exam: Present: RRR, +S1, +S2. Absent: diastolic murmur, gallop, rubs, systolic murmur - GI/Abdominal GI/Abdominal exam: Present: normal bowel sounds, soft (obese), no peritoneal signs. Absent: distended, tenderness - Extremities Exam Extremities exam: Present: full ROM, pedal edema, warm, radial pulses palpable and symmetrical. Absent: calf tenderness, cyanotic - Neurological Exam Neurological exam: Present: CN II-XII intact, oriented X3, no focal deficits. Absent: pronater drift, facial droop, speech deficit Internal Medicine: Result - Labs CBC & Chem 7: 10/12/17 03:00 10/12/17 03:00 - ABG Interpretation ABG results: ABG ABG pH 7.43 pH Units (7.32-7.45) 10/11/17 17:28 ABG pCO2 44 mmHg (35-45) 10/11/17 17:28 ABG pO2 80 mmHg (85-104) L 10/11/17 17:28 ABG O2 Saturation 96 % (95-98) 10/11/17 17:28 PT/INR, D-dimer PT 29.9 Seconds (9.4-12.1) H 10/13/17 05:57 Consult Discharge Plan - Plan Referrals: Cady Bowles MD [Primary Care Provider] - 10/16/17 10:00 am
[2017-10-13] MEDS ORDERED: *HR* Warfarin 5 MG TABLET PO ONE (18:00)
[2017-10-13] MEDS ORDERED: Insulin LISPRO 300 UNITS/3 ML VIAL SQ SCH (21:00)
[2017-10-14] MEDS: Ipratropium/Albuterol Neb 3 ML IH SCH ×4 (03:43→21:31)
[2017-10-14 05:17] LABS: INR 2.5; Prothrombin Time 26.9 Seconds (9.4-12.1)
[2017-10-14 05:24] LABS: BUN/Creatinine Ratio 32 (6-26); Blood Urea Nitrogen 19 mg/dL (8-23); Calcium 8.6 mg/dL (8.6-10.3); Carbon Dioxide 31 mEq/L (23-29); Chloride 101 mEq/L (98-107); Glucose 226 mg/dL (70-105); Magnesium 1.7 mg/dL (1.6-2.6); Osmolality,Calculated 305 (280-300); Potassium 4.4 mEq/L (3.5-5.1); Sodium 143 mEq/L (136-145); eGFR For African Americans > 60 (> 60); eGFR For Non-African Americans > 60 (> 60)
[2017-10-14] MEDS: OXcarbazepine 150 MG TABLET PO SCH (08:47)
[2017-10-14] MEDS: *HR* Repaglinide 1 MG TABLET PO SCH (08:47)
[2017-10-14] MEDS: Gabapentin 400 MG CAPSULE PO SCH ×2 (08:47→13:56)
[2017-10-14] MEDS: Aspirin 81 MG TAB.CHEW PO SCH (08:48)
[2017-10-14] MEDS: Valsartan 160 MG TABLET PO SCH (08:48)
[2017-10-14] MEDS: Metoprolol XL (24 HR) Succ 50 MG TAB.ER.24H PO SCH (08:48)
[2017-10-14] MEDS: MethylPREDNISolone 40 MG/ML VIAL IVP SCH (08:49)
[2017-10-14] MEDS: Diltiazem CD (24hr) 180 MG CAPSULE PO SCH (08:49)
[2017-10-14] MEDS: Insulin DETEMIR 100 UNIT/ML X5UNITS SQ SCH (08:50)
[2017-10-14] MEDS: cefTRIAXone 1,000 MG in Water for inj. (sterile) 20 ML 10 ML IVP SCH (08:50)
[2017-10-14] MEDS: Furosemide 40 MG/4 ML VIAL IVP SCH (08:51)
[2017-10-14] MEDS: Insulin LISPRO 300 UNITS/3 ML VIAL SQ SCH ×3 (08:52→17:08)
[2017-10-14] MEDS: Clotrimazole/Betameth Dip CRM 45 APPL/45 GM TUBE TP SCH (08:52)
--- NOTE | 2017-10-14 09:43 | Cardiology Progress Note ---
Date of Encounter: 10/14/17 Time of Encounter: 09:43 Assessment and Plan (1) Congestive heart failure Current Visit: Yes Status: Acute Acute on chronic diastolic CHF. TTE showed EF LVEF 55-60%. Mildly dilated left ventricle. Indeterminate diastolic function. Normal right ventricular structure and function. Atypical septal motion consistent with paced rhythm. Mild aortic stenosis suggested by Doppler. Mean gradient 19 mmHg. Mild pulmonary hypertension. A device lead was visualized in the right atrium and right ventricle. BNP 435. CXR showed mild pulmonary edema. Agree with IV lasix. Net negative 1650 ml. Goal negative 1500ml for 24 hours. Tolerated extra dose lasix yesterday and improved. Will give another today. Continue IV diuresis for at least 24 hours. Low sodium diet stressed. Recommend information technology security analyst consult, order placed. Recommend increased dose bumex at discharge, 1 mg BID. Monitor Scr, dialy weights, and strict I&O. Out-patient f/u will be scheduled . Cardiology will sign off. Call with questions. Qualifiers: Heart failure type: diastolic Heart failure chronicity: acute Qualified Code(s): I50.31 - Acute diastolic (congestive) heart failure (2) Atrial fibrillation Current Visit: Yes Status: Chronic H/o of afib on coumadin. SR with PAC, LBBB with intermittent rate controlled afib. Qualifiers: Atrial fibrillation type: paroxysmal Qualified Code(s): I48.0 - Paroxysmal atrial fibrillation (3) Pacemaker Current Visit: Yes Status: Acute H/o pacemaker for tachy-reina syndrome. Device check completed for artifact seen on telemetry. Normal functioning device. There was 2 sec of NSVT on 10/11/17. Discussion w patient/family: The assessment and plan as outlined above was discussed with the patient and/or family members who expressed understanding and agreement. All questions were answered. Thank you for involving us in the care of your patient. Please call with any questions. Subjective Principal diagnosis: CHF Interval history: Reports she is feeling better. Less BLE edema today. Objective Vital Signs, Last 4 Hours Temp Pulse Resp BP Pulse Ox 10/14/17 07:23 97.7 F 72 18 145/76 96 General: Conversant, No Apparent Distress, Other (Obese female) HEENT: Atraumatic, Normocephaly, Mucus Membranes Moist Neck: No JVD, Normal carotid pulses Cardiac: No Murmur, Other (irregular) Lungs: Normal Breath Sounds, No Wheeze, Rales, Rhonchi Neuro: Alert and responsive, No focal deficits noted Abdomen: Soft, Non-Tender Skin: No rashes noted on visualized skin Musculoskeletal: No Chest Wall Tenderness Extremities: No Clubbing, No Cyanosis, Normal Pulses, Other (1+ BLE edema) Results 10/12/17 03:00 10/14/17 04:26 Lab Results 10/14/17 10/14/17 04:26 04:26 INR 2.5 Sodium 143 Potassium 4.4 Chloride 101 Carbon Dioxide 31 H BUN 19 Creatinine 0.59 L Glucose 226 H Calcium 8.6 Magnesium 1.7 - Imaging and Cardiology Echo: report reviewed - EKG Interpretation EKG results cardiology: personally reviewed Consult Discharge Plan - Plan Referrals: Cady Bowles MD [Primary Care Provider] - 10/16/17 10:00 am
[2017-10-14] MEDS ORDERED: Furosemide 20 MG/2 ML VIAL IVP ONE (12:00)
--- NOTE | 2017-10-14 14:34 | Discharge Summary ---
- NOTES TO OUTPATIENT PROVIDER Notes to Outpatient Provider: Acute COPD, acute CHF Orders not resulted at time of discharge: Pending orders 10/15/17 04:00 PT/INR [Prothrombin Time INR] [COAG] AM 0400 10/16/17 04:00 PT/INR [Prothrombin Time INR] [COAG] AM 0400 10/17/17 04:00 PT/INR [Prothrombin Time INR] [COAG] AM 04010/18/17 04:00 PT/INR [Prothrombin Time INR] [COAG] AM 040 Date of Encounter: 10/14/17 Time of Encounter: 09:30 - Discharge Diagnosis (1) Acute on chronic respiratory failure Priority: Primary Status: Acute Qualifiers: Respiratory failure complication: hypoxia Qualified Code(s): J96.21 - Acute and chronic respiratory failure with hypoxia (2) Acute exacerbation of chronic obstructive airways disease Priority: Primary Status: Acute (3) Atrial fibrillation Priority: Secondary Status: Chronic Qualifiers: Atrial fibrillation type: paroxysmal Qualified Code(s): I48.0 - Paroxysmal atrial fibrillation (4) Congestive heart failure Priority: Primary Status: Acute Qualifiers: Heart failure type: diastolic Heart failure chronicity: acute Qualified Code(s): I50.31 - Acute diastolic (congestive) heart failure (5) Urinary tract infection Priority: Primary Status: Acute Qualifiers: Urinary tract infection type: acute cystitis Hematuria presence: without hematuria Qualified Code(s): N30.00 - Acute cystitis without hematuria (6) Diabetes mellitus Priority: Secondary Status: Chronic Qualifiers: Diabetes mellitus type: type 2 Diabetes mellitus residential insulin use: without residential use Diabetes mellitus complication status: with unspecified complications Qualified Code(s): E11.8 - Type 2 diabetes mellitus with unspecified complications (7) Hypertension Priority: Secondary Status: Chronic Qualifiers: Hypertension type: essential hypertension Qualified Code(s): I10 - Essential (primary) hypertension Hospital course: Ms. Watson is a 72 year old female with the above medical problems, who was admitted with significant shortness of breath and respiratory distress. She was noted to be in acute exacerbation of COPD, was started on breathing treatments, IV steroids, empiric IV antibiotics, supplemental oxygen and BiPAP support. She also had leg swelling and underlying CHF, started on diuresis with IV Lasix. Patient improved on this regimen. Echocardiogram showed preserved ejection fraction, indeterminate diastolic function, mild aortic stenosis and pulmonary hypertension. She was noted to have abnormal telemetry with infrequent pacing. Cardiology was consulted, pacer interrogation was done, noted to be normal functioning device with only 2 seconds of NSVT. Abnormal telemetry was thought to be due to error in leads. She was treated with IV Rocephin for UTI, urine culture subsequently grew pansensitive Escherichia coli. Physical and occupational therapy evaluation was completed, recommended home health services, referral is completed. Patient is currently medically stable for discharge. Discharge discussed with: patient - Time Spent with Patient Total time spent providing and/or coordinating discharge services: Greater than 30 minutes (45 min) - Discharge Medications Prescriptions: PredniSONE [Deltasone] 40 mg PO DAILY #6 tablet Home Medications: Acetaminophen [Tylenol Arthritis] 650 mg PO Q8H PRN 10/15/16 [History] Albuterol Sulfate [Proair Hfa] 2 puff IH Q4H PRN 10/15/16 [History] Amitriptyline [Elavil] 50 mg PO HS 10/15/16 [History] Aspirin 81 mg PO DAILY 10/15/16 [History] Atorvastatin Calcium [Lipitor] 20 mg PO DAILY 10/15/16 [History] Cholecalciferol (D-3) [Vitamin D] 2,000 unit PO DAILY 10/15/16 [History] Clotrimazole/Betameth Dip CRM [Lotrisone CRM] 1 appl TP BID 10/15/16 [History] Duloxetine HCl [Cymbalta] 60 mg PO DAILY 10/15/16 [History] Gabapentin [Neurontin] 800 mg PO TID 10/15/16 [History] Levothyroxine [Synthroid] 75 mcg PO DAILY 10/15/16 [History] OXcarbazepine [Oxcarbazepine] 600 mg PO BID 10/15/16 [History] Omeprazole [PriLOSEC] 40 mg PO DAILY 10/15/16 [History] Repaglinide [Prandin] 1 mg PO BID 10/15/16 [History] Tramadol HCl [Ultram] 50 mg PO QID PRN 10/15/16 [History] Valsartan [Diovan] 320 mg PO DAILY 10/15/16 [History] Warfarin [Coumadin] 2.5 mg PO MOFR 10/15/16 [History] Warfarin [Coumadin] 5 mg PO SUTUWETHSA 10/15/16 [History] metFORMIN [Glucophage] 1,000 mg PO BIDWM 10/15/16 [History] Diltiazem HCl [Diltiazem 24Hr Cd] 360 mg PO DAILY 10/11/17 [History] Insulin Glargine,Hum.rec.anlog [Basaglar Kwikpen U-100] 25 unit SQ HS 10/11/17 [ History] Metoprolol Succinate [Toprol Xl] 50 mg PO DAILY 10/11/17 [History] Bumetanide [Bumex] 1 mg PO BID #60 10/14/17 [Rx] PredniSONE [Deltasone] 40 mg PO DAILY #6 tablet 10/14/17 [Rx] Allergies/Adverse Reactions: 3 Allergy/AdvReac Type Severity Reaction Status Date / Time codeine Allergy Headache Verified 04/10/15 14:48 lisinopril Allergy Cough Verified 04/10/15 14:48 carbamazepine [From Tegretol] AdvReac Anaphylaxis Verified 04/10/15 14:48 Date of admission: 10/11/17 14:23 Primary care physician: Cady Bowles, Consults: 10/11/17 15:36 Consult to Pastoral Services [CONS] Routine Comment: Consult to Coke Worker [CONS] Routine Reason for SW Consult: home o2, discharge needs. 10/13/17 08:35 Consult to Cardiology [CONS] Routine Comment: Consulting Provider: Cardiology Patt Reason for Consult: Pacer not capturing, CHF exacerbation Time Notified: 08:36 Call Completed: Yes 10/13/17 09:00 Consult to Nurse Navigator [CONS] Routine Comment: 10/13/17 14:15 consult to map and chart mounter [Consult to Nutrition] [CONS] Routine Comment: Consulting Provider: NUTRITION Reason for Dietary Consult: Diet Education 10/13/17 16:20 Consult to Occupational Therapy [CONS] Routine Comment: Evaluate, develop and implement POC Reason for Consult: Limited ability to ambulate / ADLs without need for rest and oxygen desaturation Does patient have active BEDREST order?: No Is patient medically & hemodynamically stable?: Yes Patient assessed for mobility or mobilized this visit?: Yes Consult to Physical Therapy [CONS] Routine Comment: Evaluate, develop and implement POC Reason for Consult: Limited ability to ambulate / ADLs without need for rest and oxygen desaturation Does patient have active BEDREST order?: No Is patient medically & hemodynamically stable?: Yes Patient assessed for mobility or mobilized this visit?: Yes Discharging clinician: La Nena Stevens Anticipated date of discharge: 10/14/17 - Constitutional Vitals: Temp Pulse Resp BP Pulse Ox 98.7 F 71 18 156/76 94 10/14/17 11:33 10/14/17 11:33 10/14/17 11:33 10/14/17 11:33 10/14/17 11:33 General appearance: Present: A&O X 3, morbidly obese, answers questions appropriately - Respiratory Respiratory exam: Present: CTAB, wheezes. Absent: accessory muscle use, rales, rhonchi - Cardiovascular Cardiovascular exam: Present: RRR, +S1, +S2. Absent: diastolic murmur, gallop, rubs, systolic murmur - Patient Status Disposition: Home, Self-Care Condition: Fair Functional capacity at discharge: uses cane/walker Overall status at discharge: patient is progressing back to baseline - Discharge Instructions Instructions: Prednisone (By mouth), Heart Failure (GEN), Low Sodium Diet (DC) Follow Up With: Cady Bowles MD [Primary Care Provider] - 10/16/17 10:00 am Forms: ED Satisfaction Letter Additional Instructions: F/up with Cardiology as scheduled - Diet and Activity Activity: resume usual activities as tolerated, wear oxygen at night, other ( wear BiPAp at night) Diet: diabetic diet, low fat, low cholesterol, low salt diet (fluid restriction to 1.5L/day)
[2017-10-14] MEDS ORDERED: Furosemide 40 MG TABLET PO ONE (14:45)
--- NOTE | 2017-10-14 15:07 | Physician Discharge Referral ---
Home Health/Hosp Referral Info Transfer to: Home Health Attending Provider: La Nena Stevens Provider in Charge Post Discharge: PCP - Diagnosis (1) Acute on chronic respiratory failure Priority: Primary Status: Acute (2) Acute exacerbation of chronic obstructive airways disease Priority: Primary Status: Acute (3) Atrial fibrillation Priority: Secondary Status: Chronic (4) Congestive heart failure Priority: Primary Status: Acute (5) Urinary tract infection Priority: Primary Status: Acute (6) Diabetes mellitus Priority: Secondary Status: Chronic (7) Hypertension Priority: Secondary Status: Chronic - Respiratory Orders Oxygen / L per min (2L/min via NC, nocturnal) Smoking Cessation: Smoking cessation has been advised. For more information, call the [place] Tobacco Quit Line at 5-867-VZZT-NOW. - Diet/Nutrition Diet/Nutrition Orders: Cardiac, No Concentrated Sweets (diabetic) - Activity Activity Orders: Ambulate, Walker - Services Needed Following services are medically necessary services: Nursing, Physical Therapy, Occupational Therapy - Transfer Medications Prescriptions: PredniSONE [Deltasone] 40 mg PO DAILY #6 tablet Home Medications: Acetaminophen [Tylenol Arthritis] 650 mg PO Q8H PRN 10/15/16 [History] Albuterol Sulfate [Proair Hfa] 2 puff IH Q4H PRN 10/15/16 [History] Amitriptyline [Elavil] 50 mg PO HS 10/15/16 [History] Aspirin 81 mg PO DAILY 10/15/16 [History] Atorvastatin Calcium [Lipitor] 20 mg PO DAILY 10/15/16 [History] Cholecalciferol (D-3) [Vitamin D] 2,000 unit PO DAILY 10/15/16 [History] Clotrimazole/Betameth Dip CRM [Lotrisone CRM] 1 appl TP BID 10/15/16 [History] Duloxetine HCl [Cymbalta] 60 mg PO DAILY 10/15/16 [History] Gabapentin [Neurontin] 800 mg PO TID 10/15/16 [History] Levothyroxine [Synthroid] 75 mcg PO DAILY 10/15/16 [History] OXcarbazepine [Oxcarbazepine] 600 mg PO BID 10/15/16 [History] Omeprazole [PriLOSEC] 40 mg PO DAILY 10/15/16 [History] Repaglinide [Prandin] 1 mg PO BID 10/15/16 [History] Tramadol HCl [Ultram] 50 mg PO QID PRN 10/15/16 [History] Valsartan [Diovan] 320 mg PO DAILY 10/15/16 [History] Warfarin [Coumadin] 2.5 mg PO MOFR 10/15/16 [History] Warfarin [Coumadin] 5 mg PO SUTUWETHSA 10/15/16 [History] metFORMIN [Glucophage] 1,000 mg PO BIDWM 10/15/16 [History] Diltiazem HCl [Diltiazem 24Hr Cd] 360 mg PO DAILY 10/11/17 [History] Insulin Glargine,Hum.rec.anlog [Basaglar Kwikpen U-100] 25 unit SQ HS 10/11/17 [ History] Metoprolol Succinate [Toprol Xl] 50 mg PO DAILY 10/11/17 [History] Bumetanide [Bumex] 1 mg PO BID #60 10/14/17 [Rx] PredniSONE [Deltasone] 40 mg PO DAILY #6 tablet 10/14/17 [Rx] Allergies/Adverse Reactions: 3 Allergy/AdvReac Type Severity Reaction Status Date / Time codeine Allergy Headache Verified 04/10/15 14:48 lisinopril Allergy Cough Verified 04/10/15 14:48 carbamazepine [From Tegretol] AdvReac Anaphylaxis Verified 04/10/15 14:48 Certification: Further, I certify that my clinical findings support that this patient is homebound (i.e. absences from home require considerable and taxing effort and are for medical reasons or buddhist services or infrequently or short duration when for other reasons) because: Homebound Reason: Leaving home requires considerable and taxing effort due to condition, Severity of cardiac or pulmonary status limits activity tolerance Attestation: My signature below is to certify that this patient is under my care and that I, or nurse practitioner, or a physician's assistant director of plant operations working with me, has a face-to -face encounter with this patient.
[2017-10-14 15:53] VITALS: BP 163/75
[2017-10-14] MEDS ORDERED: *HR* Repaglinide 1 MG TABLET PO SCH (16:30)
[2017-10-14] MEDS ORDERED: *HR* Warfarin 5 MG TABLET PO ONE (18:00)
== END 2017-10-14 18:40 | disposition home or self-care (01) | DRG 190 ==
LOC: EMEROO 09:58 → 2NNU 14:23 → SUATTDRO 14:23 → 2NNU 14:44
PROVIDERS: ADMIT Internal Medicine; ATTEND Internal Medicine

== ENCOUNTER 2017-10-20 16:18 | Observation (INO) ==
--- NOTE | 2017-10-20 16:52 | Emergency Department Note ---
Disposition Clinical Impression: Dehydration, KEIRY (acute kidney injury) CHF (congestive heart failure) Qualifiers: Heart failure type: unspecified Heart failure chronicity: unspecified Qualified Code(s): I50.9 - Heart failure, unspecified Disposition: Admitted As Inpatient Condition: Good Referrals: Cady Bowles MD [Primary Care Provider] - Forms: ED Satisfaction Letter General Adult HPI - General Chief complaint: ED Weakness Stated complaint: weakness,hypotension Time Seen by Provider: 10/20/17 16:34 Source: patient, family Limitations: no limitations Nursing Notes Reviewed: Yes Vital Signs Reviewed: Yes - History of Present Illness HPI Narrative: 72-year-old female who was admitted and released approximately one week ago from the hospital due to congestive heart failure. She reports that since then she has felt fatigued. She went to see her primary care physician as a routine follow-up today and they were unable to get a heart rate or a blood pressure ( according to the patient) so she was sent to the emergency department. She admits to worsening fatigue since she was discharged from the hospital. She says that she has gained 1 pound since being discharged. She does have a past medical history of atrial fibrillation, CHF, diabetes, hypertension, hyperlipidemia. She does not have any abdominal pain. She occasionally coughs. She does have oxygen at home that she wears 2 L. She denies any fever or rashes. Pain Scale: 0 Consistency: constant Improves with: nothing Worsens with: other (exertion) Associated symptoms: Reports: denies other symptoms Treatments Prior to Arrival: none - Related Data Home Medications Medication Instructions Recorded Confirmed Acetaminophen [Tylenol Arthritis] 650 mg PO Q8H PRN 10/15/16 10/20/17 Albuterol Sulfate [Proair Hfa] 2 puff IH Q4H PRN 10/15/16 10/20/17 Amitriptyline [Elavil] 50 mg PO HS 10/15/16 10/20/17 Aspirin 81 mg PO DAILY 10/15/16 10/20/17 Atorvastatin Calcium [Lipitor] 20 mg PO DAILY 10/15/16 10/20/17 Cholecalciferol (D-3) [Vitamin D] 2,000 unit PO DAILY 10/15/16 10/20/17 Clotrimazole/Betameth Dip CRM 1 appl TP BID 10/15/16 10/20/17 [Lotrisone CRM] Duloxetine HCl [Cymbalta] 60 mg PO DAILY 10/15/16 10/20/17 Gabapentin [Neurontin] 800 mg PO TID 10/15/16 10/20/17 Levothyroxine [Synthroid] 75 mcg PO DAILY 10/15/16 10/20/17 OXcarbazepine [Oxcarbazepine] 600 mg PO BID 10/15/16 10/20/17 Omeprazole [PriLOSEC] 40 mg PO DAILY 10/15/16 10/20/17 Repaglinide [Prandin] 1 mg PO BID 10/15/16 10/20/17 Tramadol HCl [Ultram] 50 mg PO QID PRN 10/15/16 10/20/17 Valsartan [Diovan] 320 mg PO DAILY 10/15/16 10/20/17 Warfarin [Coumadin] 2.5 mg PO SUTUTHSA 10/15/16 10/20/17 Warfarin [Coumadin] 5 mg PO MOWEFR 10/15/16 10/20/17 metFORMIN [Glucophage] 1,000 mg PO BIDWM 10/15/16 10/20/17 Diltiazem HCl [Diltiazem 24Hr Cd] 360 mg PO DAILY 10/11/17 10/20/17 Insulin Glargine,Hum.rec.anlog 25 unit SQ HS 10/11/17 10/20/17 [Basaglar Kwikpen U-100] Metoprolol Succinate [Toprol Xl] 50 mg PO DAILY 10/11/17 10/20/17 Doxycycline Hyclate [Morgidox] 100 mg PO BID 10/20/17 10/20/17 Previous Rx's Medication Instructions Recorded Bumetanide [Bumex] 1 mg PO BID #60 10/14/17 Allergies Allergy/AdvReac Type Severity Reaction Status Date / Time codeine Allergy Headache Verified 10/20/17 19:09 lisinopril Allergy Cough Verified 10/20/17 19:09 carbamazepine [From Tegretol] AdvReac Anaphylaxis Verified 10/20/17 19:09 All systems ED: reviewed and negative except as stated. Constitutional: Denies: fever ENT ED: Denies: throat pain Cardiovascular: Denies: chest pain Respiratory: Reports: cough, dyspnea Gastrointestinal: Denies: abdominal pain Integumentary: Denies: rash Neurological: Denies: headache Endocrine: Denies: fatigue Past Medical History - Past Medical History Medical history: Reports: arthritis, atrial fibrillation, CHF, COPD, DVT, diabetes, GERD, hyperlipidemia, hypertension, thyroid disease, venous stasis Surgical history: Reports: appendectomy, hysterectomy Psychiatric history: Reports: no psych history - Social History Smoking Status: Never smoker Smokeless Tobacco Status: No Alcohol use: Reports: none Drug use: Reports: none Physical Exam - General Limitations: no limitations General appearance: alert, in no apparent distress - Head Head exam: atraumatic - Eye Eye exam: Present: normal appearance, PERRL - ENT ENT exam: normal exam, normal oropharynx - Neck Neck exam: Present: normal inspection - Chest Chest inspection: Present: normal inspection - Respiratory Respiratory exam: Present: normal lung sounds bilaterally. Absent: respiratory distress - Cardiovascular Cardiovascular exam: Present: regular rate, normal rhythm - Abdominal Exam Abdominal exam: Present: soft, Non-Tender - Extremities Exam Extremities exam: Present: normal inspection - Neurological Exam Neurological exam: Present: alert, oriented X3 - Psychiatric Psychiatric exam: Present: normal affect, normal mood - Skin Skin exam: Present: warm, dry Course Course Narrative: Clinically she is not in CHF. No abnormal lung sounds. No hypoxia. She was initially hypotensive in triage, but by the time she got back to the ED she was 115 systolic BP. Not tachycardic. She has been observing her fluid restriction and salt restriction. Minimal urine output. No chest pain. Minimal respiratory symptoms. Labs show KEIRY with likely dehydration. Likely from increased diuretic with strict fluid restrictions. Will admit for KEIRY. BP stable. Will give 250 cc and hydrate slowly due to CHF hx. BNP not elevated. Vital Signs Temperature 98.4 F 10/20/17 16:20 Pulse Rate 69 10/20/17 16:20 Respiratory Rate 20 10/20/17 16:20 Blood Pressure 92/52 10/20/17 16:20 O2 Sat by Pulse Oximetry 87 10/20/17 16:20 Temperature 98.4 F 10/20/17 16:25 Pulse Rate 70 10/20/17 18:41 Respiratory Rate 18 10/20/17 18:41 Blood Pressure 116/51 10/20/17 18:41 O2 Sat by Pulse Oximetry 98 10/20/17 18:41 Oxygen Delivery Oxygen Delivery Nasal Cannula Medical Decision Making - Medical Records Medical records reviewed: Yes I reviewed the patient's medical records. - Lab Data Lab results reviewed: Yes I reviewed the patient's lab results. Result diagrams: 10/20/17 17:53 10/20/17 17:53 Lab Results 10/20/17 10/20/17 10/20/17 Range/Units 17:40 17:53 17:53 WBC 12.7 H (4.3-11.1) K/mcL RBC 4.05 (3.82-4.97) M/mcL Hgb 10.5 L (11.5-15.4) g/dL Hct 33.0 L (35.3-44.9) % MCV 81.5 L (83.0-100.0) fL MCH 25.9 L (28.0-33.3) pg MCHC 31.8 (31.6-35.5) g/dL RDW 17.2 H (11.5-14.5) % Plt Count 306 (140-400) K/mcL MPV 9.8 (9.4-12.4) fL Immature Gran % 0.9 (0-4) % Seg Neutrophils % 67.7 % Lymphocytes % 20.0 % Monocytes % 9.2 % Eosinophils % 1.9 % Basophils % 0.3 % Neutrophils # 8.6 (1.6-8.9) K/mcL Lymphocytes # 2.5 (0.6-4.6) K/mcL Monocytes # 1.2 (0.0-1.3) K/mcL Eosinophils # 0.2 (0.0-0.6) K/mcL Basophils # 0.0 (0.0-0.2) K/mcL PT (9.4-12.1) Seconds INR Sodium 134 L (136-145) mEq/L Potassium 4.2 (3.5-5.1) mEq/L Chloride 96 L (98-107) mEq/L Carbon Dioxide 27 (23-29) mEq/L BUN 48 H (8-23) mg/dL Creatinine 1.77 H (0.60-1.20) mg/dL Est GFR ( Amer) 34 L (> 60) Est GFR (Non-Af Amer) 28 L (> 60) BUN/Creatinine Ratio 27 H (6-26) Glucose 168 H (70-105) mg/dL Calculated Osmolality 294 (280-300) Lactic Acid (0.5-2.2) mmol/L Calcium 8.9 (8.6-10.3) mg/dL Magnesium 1.4 L (1.6-2.6) mg/dL Troponin I < 0.03 (< 0.04) ng/mL B-Natriuretic Peptide (Less than 100) pg/mL TSH 0.478 (0.340-5.600) mcIU/mL Urine Color Yellow (Yellow) Urine Clarity Cloudy A (Clear) Urine pH 5.0 (5.0-8.0) pH Units Ur Specific [place] 1.028 H (1.010-1.025) Urine Protein Negative (Neg-Trace) mg/dL Urine Glucose (UA) Normal (Normal) mg/dL Urine Ketones Negative (Negative) mg/dL Urine Blood Negative (Negative) Urine Nitrite Negative (Negative) Urine Bilirubin Small H (Negative) Urine Urobilinogen Normal (Normal) mg/dL Ur Leukocyte Esterase Small H (Negative) Urine Microscopic RBC 5-15 H (0-3) per hpf Urine Microscopic WBC 5-15 H (0-3) per hpf Ur Squamous Epith Cells Many H (None-Few) per lpf Amorphous Sediment Moderate H (Few) Urine Bacteria Few (None-Few) per hpf Hyaline Casts Few (None-Few) per lpf Ur Culture Indicated? NO. A (NO) 10/20/17 10/20/17 10/20/17 Range/Units 17:53 17:53 17:53 WBC (4.3-11.1) K/mcL RBC (3.82-4.97) M/mcL Hgb (11.5-15.4) g/dL Hct (35.3-44.9) % MCV (83.0-100.0) fL MCH (28.0-33.3) pg MCHC (31.6-35.5) g/dL RDW (11.5-14.5) % Plt Count (140-400) K/mcL MPV (9.4-12.4) fL Immature Gran % (0-4) % Seg Neutrophils % % Lymphocytes % % Monocytes % % Eosinophils % % Basophils % % Neutrophils # (1.6-8.9) K/mcL Lymphocytes # (0.6-4.6) K/mcL Monocytes # (0.0-1.3) K/mcL Eosinophils # (0.0-0.6) K/mcL Basophils # (0.0-0.2) K/mcL PT 24.8 H (9.4-12.1) Seconds INR 2.3 Sodium (136-145) mEq/L Potassium (3.5-5.1) mEq/L Chloride (98-107) mEq/L Carbon Dioxide (23-29) mEq/L BUN (8-23) mg/dL Creatinine (0.60-1.20) mg/dL Est GFR ( Amer) (> 60) Est GFR (Non-Af Amer) (> 60) BUN/Creatinine Ratio (6-26) Glucose (70-105) mg/dL Calculated Osmolality (280-300) Lactic Acid 2.1 (0.5-2.2) mmol/L Calcium (8.6-10.3) mg/dL Magnesium (1.6-2.6) mg/dL Troponin I (< 0.04) ng/mL B-Natriuretic Peptide 36 (Less than 100) pg/mL TSH (0.340-5.600) mcIU/mL Urine Color (Yellow) Urine Clarity (Clear) Urine pH (5.0-8.0) pH Units Ur Specific [place] (1.010-1.025) Urine Protein (Neg-Trace) mg/dL Urine Glucose (UA) (Normal) mg/dL Urine Ketones (Negative) mg/dL Urine Blood (Negative) Urine Nitrite (Negative) Urine Bilirubin (Negative) Urine Urobilinogen (Normal) mg/dL Ur Leukocyte Esterase (Negative) Urine Microscopic RBC (0-3) per hpf Urine Microscopic WBC (0-3) per hpf Ur Squamous Epith Cells (None-Few) per lpf Amorphous Sediment (Few) Urine Bacteria (None-Few) per hpf Hyaline Casts (None-Few) per lpf Ur Culture Indicated? (NO) - Radiology Data Radiology results reviewed: Yes I reviewed the patient's radiology results. - EKG Data EKG #1 EKG attestation: Yes I reviewed and interpreted this EKG. Interpretation: other (paced rhythm with rate of 92. No scarbossa criteria fulfilled.)
--- NOTE | 2017-10-20 17:43 | Emergency Department Note ---
Disposition Clinical Impression: CHF exacerbation Qualifiers: Heart failure type: unspecified Qualified Code(s): I50.9 - Heart failure, unspecified Disposition: Still a Patient Referrals: Cady Bowles MD [Primary Care Provider] - Forms: ED Satisfaction Letter General Adult HPI - General Chief complaint: ED Weakness Stated complaint: weakness,hypotension Time Seen by Provider: 10/20/17 16:34 Source: patient, family Limitations: no limitations - History of Present Illness Pain Scale: 0 Improves with: nothing Worsens with: other (exertion) Associated symptoms: Reports: denies other symptoms Treatments Prior to Arrival: none - Related Data Home Medications Medication Instructions Recorded Confirmed Acetaminophen [Tylenol Arthritis] 650 mg PO Q8H PRN 10/15/16 10/11/17 Albuterol Sulfate [Proair Hfa] 2 puff IH Q4H PRN 10/15/16 10/11/17 Amitriptyline [Elavil] 50 mg PO HS 10/15/16 10/11/17 Aspirin 81 mg PO DAILY 10/15/16 10/11/17 Atorvastatin Calcium [Lipitor] 20 mg PO DAILY 10/15/16 10/11/17 Cholecalciferol (D-3) [Vitamin D] 2,000 unit PO DAILY 10/15/16 10/11/17 Clotrimazole/Betameth Dip CRM 1 appl TP BID 10/15/16 10/11/17 [Lotrisone CRM] Duloxetine HCl [Cymbalta] 60 mg PO DAILY 10/15/16 10/11/17 Gabapentin [Neurontin] 800 mg PO TID 10/15/16 10/11/17 Levothyroxine [Synthroid] 75 mcg PO DAILY 10/15/16 10/11/17 OXcarbazepine [Oxcarbazepine] 600 mg PO BID 10/15/16 10/11/17 Omeprazole [PriLOSEC] 40 mg PO DAILY 10/15/16 10/11/17 Repaglinide [Prandin] 1 mg PO BID 10/15/16 10/11/17 Tramadol HCl [Ultram] 50 mg PO QID PRN 10/15/16 10/11/17 Valsartan [Diovan] 320 mg PO DAILY 10/15/16 10/11/17 Warfarin [Coumadin] 2.5 mg PO MOFR 10/15/16 10/11/17 Warfarin [Coumadin] 5 mg PO SUTUWETHSA 10/15/16 10/11/17 metFORMIN [Glucophage] 1,000 mg PO BIDWM 10/15/16 10/11/17 Diltiazem HCl [Diltiazem 24Hr Cd] 360 mg PO DAILY 10/11/17 10/11/17 Insulin Glargine,Hum.rec.anlog 25 unit SQ HS 10/11/17 10/11/17 [Basaglar Kwikpen U-100] Metoprolol Succinate [Toprol Xl] 50 mg PO DAILY 10/11/17 10/11/17 Previous Rx's Medication Instructions Recorded Bumetanide [Bumex] 1 mg PO BID #60 10/14/17 PredniSONE [Deltasone] 40 mg PO DAILY #6 tablet 10/14/17 Allergies Allergy/AdvReac Type Severity Reaction Status Date / Time codeine Allergy Headache Verified 10/20/17 16:26 lisinopril Allergy Cough Verified 10/20/17 16:26 carbamazepine [From Tegretol] AdvReac Anaphylaxis Verified 10/20/17 16:26 Constitutional: Denies: fever ENT ED: Denies: throat pain Cardiovascular: Denies: chest pain Respiratory: Reports: cough, dyspnea Gastrointestinal: Denies: abdominal pain Integumentary: Denies: rash Neurological: Denies: headache Endocrine: Denies: fatigue Past Medical History - Past Medical History Medical history: Reports: arthritis, atrial fibrillation, CHF, COPD, DVT, diabetes, GERD, hyperlipidemia, hypertension, thyroid disease, venous stasis Surgical history: Reports: appendectomy, hysterectomy Psychiatric history: Reports: no psych history - Social History Smoking Status: Never smoker Smokeless Tobacco Status: No Alcohol use: Reports: none Drug use: Reports: none Physical Exam - General Limitations: no limitations General appearance: alert, in no apparent distress Course Vital Signs Temperature 98.4 F 10/20/17 16:20 Pulse Rate 69 10/20/17 16:20 Respiratory Rate 20 10/20/17 16:20 Blood Pressure 92/52 10/20/17 16:20 O2 Sat by Pulse Oximetry 87 10/20/17 16:20 Temperature 98.4 F 10/20/17 16:25 Pulse Rate 69 10/20/17 16:25 Respiratory Rate 20 10/20/17 16:25 Blood Pressure 92/52 10/20/17 16:25 O2 Sat by Pulse Oximetry 87 10/20/17 16:25 Oxygen Delivery Oxygen Delivery Room Air Attestation Statement - Attestation Attestation: I examined this patient and my medical decision-making was reviewed with the Resident Physician. I agree with the documented findings, disposition and treatment plan as described except to the extent set forth below. 72 year old armida jeffriese to the eD wtih hypotension and hypoxia. She has a history of CHF and has been expereincing excerbation episodes. Isa states that she was being seen at her PCP office and they were havin a difficult time obtaining her vital signs and thus was sent here star futher evalation. Currentl in the room he is normotensive and not hypoxic. Leonardo continue with CHF workup and diuresis patient as she feels fluid overloaded. Doni admit to [facility]
[2017-10-20 18:07] LABS: Bilirubin,Urine Small (Negative); Blood,Urine Negative (Negative); Clarity,Urine Cloudy (Clear); Color,Urine Yellow (Yellow); Glucose,Urine (UA) Normal (Normal); Ketones,Urine Negative (Negative); Leukocyte Esterase,Urine Small (Negative); Nitrite,Urine Negative (Negative); Protein,Urine Negative (Neg-Trace); Specific Gravity,Urine 1.028 (1.010-1.025); Urobilinogen,Urine Normal (Normal)
[2017-10-20 18:08] LABS: Basophils % 0.3 %; Eosinophils # 0.2 K/mcL (0.0-0.6); Eosinophils % 1.9 %; Hemoglobin 10.5 g/dL (11.5-15.4); Immature Granulocytes % 0.9 % (0-4); Lymphocytes # 2.5 K/mcL (0.6-4.6); Mean Corpuscular HGB Conc 31.8 g/dL (31.6-35.5); Mean Corpuscular Hemoglobin 25.9 pg (28.0-33.3); Mean Corpuscular Volume 81.5 fL (83.0-100.0); Mean Platelet Volume 9.8 fL (9.4-12.4); Monocytes # 1.2 K/mcL (0.0-1.3); Monocytes % 9.2 %; Neutrophils # 8.6 K/mcL (1.6-8.9); Platelet Count 306 K/mcL (140-400); Red Blood Count 4.05 M/mcL (3.82-4.97); Red Cell Distribution Width 17.2 % (11.5-14.5); Segmented Neutrophils % 67.7 %
[2017-10-20 18:09] LABS: INR 2.3; Prothrombin Time 24.8 Seconds (9.4-12.1)
[2017-10-20 18:10] LABS: Squamous Epithelial Cell,Urine Many per lpf (None-Few)
[2017-10-20 18:29] LABS: BUN/Creatinine Ratio 27 (6-26); Blood Urea Nitrogen 48 mg/dL (8-23); Calcium 8.9 mg/dL (8.6-10.3); Carbon Dioxide 27 mEq/L (23-29); Chloride 96 mEq/L (98-107); Glucose 168 mg/dL (70-105); Magnesium 1.4 mg/dL (1.6-2.6); Osmolality,Calculated 294 (280-300); Potassium 4.2 mEq/L (3.5-5.1); Sodium 134 mEq/L (136-145); Troponin I < 0.03 ng/mL (< 0.04); eGFR For African Americans 34 (> 60); eGFR For Non-African Americans 28 (> 60)
[2017-10-20 18:39] LABS: Amorphous Sediment,Urine Moderate (Few); Bacteria,Urine Few per hpf (None-Few)
[2017-10-20 18:40] LABS: Hyaline Casts,Urine Few per lpf (None-Few)
[2017-10-20] MEDS ORDERED: 0.9 % Sodium Chloride 250 ML IVC ONE (18:41)
[2017-10-20 18:43] LABS: Thyroid Stimulating Hormone 0.478 mcIU/mL (0.340-5.600)
[2017-10-20] MEDS ORDERED: Ondansetron 4 MG/2 ML VIAL IVP PRN (19:59)
--- NOTE | 2017-10-20 20:07 | Internal Med History&Physical ---
Date of Encounter: 10/20/17 Time of Encounter: 20:02 Internal Medicine - H&P: HPI Chief complaint: weak Admitted From: Emergency Dept Plans for Post Hospital Care: Home History of present illness: Ms. Watson is a 72 year old female with past medical history of her diabetes, hypertension, dyslipidemia, atrial fibrillation on the Coumadin, morbid obesity , COPD on 2L, diastolic HF who presents with weakness. The patient was recently discharged after an admission for COPD and CHF exacerbation and UTI treatment. Echo done last week showed EF 55-60% with indeterminate diastolic function. She has been fatigued since and had a follow up today with PCP where her BP was low and they couldnt get a read and was sent to the ED. In the ED, initial BP was 92 /52 and came up with about 250 cc bolus. Was hypoxic on RA at 87 and put on supplemental O2 which she is on at home with good response. The patient was told to follow a fluid restriction diet of 1200 ml which she has religiously followed. Labs showed leukocytosis at 12.7 but no fever. creatinie 1.77 with baseline around .7. mag 1.4. Denies fever, chills, nausea, vomiting, headache, blurry vision, chest pain, shortness of breath, urinary symptoms, or other neurological symptoms. CXR was clear and EKG showed paced rhythm. Past Med Surg Social Fam HX - Past Medical History Medical history: arthritis, atrial fibrillation, CHF, COPD, DVT, diabetes, GERD , hyperlipidemia, hypertension, thyroid disease, venous stasis Psychiatric history: no psych history - Past Surgical History Surgical History: appendectomy, hysterectomy - Social History Smoking Status: Never smoker Smokeless Tobacco Status: No Alcohol use: none Drug use: none - Family History Mother Living Status: Hx Family Cardiac Disorders: Yes Father Living Status: Hx Family Cardiac Disorders: Yes Hx Family Respiratory Disorders: Yes Internal Medicine - H&P: Meds Acetaminophen [Tylenol Arthritis] 650 mg PO Q8H PRN 10/15/16 [History] Albuterol Sulfate [Proair Hfa] 2 puff IH Q4H PRN 10/15/16 [History] Amitriptyline [Elavil] 50 mg PO HS 10/15/16 [History] Aspirin 81 mg PO DAILY 10/15/16 [History] Atorvastatin Calcium [Lipitor] 20 mg PO DAILY 10/15/16 [History] Cholecalciferol (D-3) [Vitamin D] 2,000 unit PO DAILY 10/15/16 [History] Clotrimazole/Betameth Dip CRM [Lotrisone CRM] 1 appl TP BID 10/15/16 [History] Duloxetine HCl [Cymbalta] 60 mg PO DAILY 10/15/16 [History] Gabapentin [Neurontin] 800 mg PO TID 10/15/16 [History] Levothyroxine [Synthroid] 75 mcg PO DAILY 10/15/16 [History] OXcarbazepine [Oxcarbazepine] 600 mg PO BID 10/15/16 [History] Omeprazole [PriLOSEC] 40 mg PO DAILY 10/15/16 [History] Repaglinide [Prandin] 1 mg PO BID 10/15/16 [History] Tramadol HCl [Ultram] 50 mg PO QID PRN 10/15/16 [History] Valsartan [Diovan] 320 mg PO DAILY 10/15/16 [History] Warfarin [Coumadin] 2.5 mg PO SUTUTHSA 10/15/16 [History] Warfarin [Coumadin] 5 mg PO MOWEFR 10/15/16 [History] metFORMIN [Glucophage] 1,000 mg PO BIDWM 10/15/16 [History] Diltiazem HCl [Diltiazem 24Hr Cd] 360 mg PO DAILY 10/11/17 [History] Insulin Glargine,Hum.rec.anlog [Basaglar Kwikpen U-100] 25 unit SQ HS 10/11/17 [ History] Metoprolol Succinate [Toprol Xl] 50 mg PO DAILY 10/11/17 [History] Bumetanide [Bumex] 1 mg PO BID #60 10/14/17 [Rx] Doxycycline Hyclate [Morgidox] 100 mg PO BID 10/20/17 [History] 3 Allergy/AdvReac Type Severity Reaction Status Date / Time codeine Allergy Headache Verified 10/20/17 19:09 lisinopril Allergy Cough Verified 10/20/17 19:09 carbamazepine [From Tegretol] AdvReac Anaphylaxis Verified 10/20/17 19:09 All Systems PM: A 10-system review of systems was performed and is negative for pertinent findings except as documented above in the HPI. Review of systems: All systems reviewed are negative except those mentioned - Constitutional Vitals: Temp Pulse Resp BP Pulse Ox 98.4 F 70 18 116/51 98 10/20/17 16:25 10/20/17 18:41 10/20/17 18:41 10/20/17 18:41 10/20/17 18:41 Exam: GEN: NAD HEENT: AT, NC, No cyanosis, oral mucosa is moist, No JVD Lymphatics: No lymphadenoapthy Eyes: Extrocular muscles intact, anicteric CVS:RRR. S1, S2, No m/r/g RESP: CTAB ABD: Soft, NT, ND, +BS EXT: No edema, No rashes, 2+ DP NEURO: Nonfocal, CN II-XII intact, No focal motor or sensory deficits Psych: Cooperative, Not anxious or depressed Internal Med - H&P Results - Labs CBC & Chem 7: 10/20/17 17:53 10/20/17 17:53 Labs: Short CBC 10/20/17 Range/Units 17:53 WBC 12.7 H (4.3-11.1) K/mcL Hgb 10.5 L (11.5-15.4) g/dL Hct 33.0 L (35.3-44.9) % Plt Count 306 (140-400) K/mcL Neutrophils # 8.6 (1.6-8.9) K/mcL BMP 10/20/17 17:53 Sodium 134 L Potassium 4.2 Chloride 96 L Carbon Dioxide 27 BUN 48 H Creatinine 1.77 H Glucose 168 H Calcium 8.9 Cardiac Enzymes 10/20/17 Range/Units 17:53 Troponin I < 0.03 (< 0.04) ng/mL Urine 10/20/17 Range/Units 17:40 Urine Color Yellow (Yellow) Urine Clarity Cloudy A (Clear) Urine pH 5.0 (5.0-8.0) pH Units Ur Specific [place] 1.028 H (1.010-1.025) Urine Protein Negative (Neg-Trace) mg/dL Urine Glucose (UA) Normal (Normal) mg/dL - Impressions ITS Impressions Chest X-Ray 10/20/17 16:47 IMPRESSION: No acute process. D/ / Gerson Darden MD / Gerson Darden MD Interpreting Provider: Gerson Darden MD - Assessment and plan (1) Weakness Current Visit: Yes Status: Acute Assessment and plan: I believe the patient's symptoms are likely secondary to dehydration and overdiuresis. I think it is okay to give the patient some fluids back and cut down her Bumex to 1 mg daily from twice a day. PTOT. (2) KEIRY (acute kidney injury) Current Visit: Yes Status: Acute Assessment and plan: Likely from overdiuresis. She is received 250 mL of normal saline in the ED. I will give her 1 L total right 100 mL an hour. Hold nephrotoxins. Monitor with Labs in the morning. (3) Congestive heart failure Current Visit: Yes Status: Acute Assessment and plan: Not in exacerbation. Resume cardiac meds. I have cut down on her Bumex to 1 mg daily. Qualifiers: Heart failure type: unspecified Heart failure chronicity: unspecified Qualified Code(s): I50.9 - Heart failure, unspecified (4) Atrial fibrillation Current Visit: No Status: Chronic Assessment and plan: History of them. We will continue with anticoagulation with Coumadin. Continue Cardizem. Continue beta korin. Qualifiers: Atrial fibrillation type: paroxysmal Qualified Code(s): I48.0 - Paroxysmal atrial fibrillation (5) Diabetes mellitus Current Visit: No Status: Chronic Assessment and plan: Insulin sliding scale. resume basal insulin. Accu-Cheks. Qualifiers: Diabetes mellitus type: type 2 Diabetes mellitus buttermaker insulin use: without usp use Diabetes mellitus complication status: with unspecified complications Qualified Code(s): E11.8 - Type 2 diabetes mellitus with unspecified complications (6) Hypertension Current Visit: No Status: Chronic Assessment and plan: Resume antihypertensives Qualifiers: Hypertension type: essential hypertension Qualified Code(s): I10 - Essential (primary) hypertension (7) DVT prophylaxis Current Visit: No Status: Acute Assessment and plan: Coumadin - Time Spent With Patient Total time spent is greater than 50% in coordination of care (as documented) at patient's floor/unit and/or counseling patient:
[2017-10-20] MEDS ORDERED: *HR* Dextrose 50 % in Water (Syg) 50 ML SYRINGE IVP PRN (20:10)
[2017-10-20] MEDS ORDERED: D5% in Water 1,000 ML IVC PRN (20:10)
[2017-10-20] MEDS ORDERED: Dextrose Gel 15 GM/37.5 ML TUBE PO PRN ×2 (20:10)
[2017-10-20] MEDS ORDERED: Naloxone 0.4 MG/ML INJ IVP PRN (20:11)
[2017-10-20] MEDS ORDERED: Acetaminophen 325 MG TABLET PO PRN (20:11)
[2017-10-20] MEDS ORDERED: traMADol 50 MG TABLET PO PRN (20:12)
[2017-10-20] MEDS ORDERED: 0.9 % Sodium Chloride 1,000 ML IVC SCH (20:15)
[2017-10-20] MEDS ORDERED: Magnesium Oxide 400 MG TABLET PO ONE (20:30)
[2017-10-20] MEDS ORDERED: *HR* Warfarin 2.5 MG TABLET PO ONE (20:30)
[2017-10-20] MEDS ORDERED: OXcarbazepine 150 MG TABLET PO SCH (21:00)
[2017-10-20] MEDS: Gabapentin 400 MG CAPSULE PO SCH (22:51)
[2017-10-20] MEDS: Insulin DETEMIR 100 UNIT/ML X5UNITS SQ SCH (22:53)
[2017-10-20] MEDS: Insulin LISPRO 300 UNITS/3 ML VIAL SQ SCH (22:53)
[2017-10-21 04:19] LABS: Basophils % 0.3 %; Eosinophils # 0.2 K/mcL (0.0-0.6); Eosinophils % 2.3 %; Hematocrit 32.3 % (35.3-44.9); Hemoglobin 9.9 g/dL (11.5-15.4); Immature Granulocytes % 0.9 % (0-4); Lymphocytes # 2.8 K/mcL (0.6-4.6); Lymphocytes % 28.3 %; Mean Corpuscular HGB Conc 30.7 g/dL (31.6-35.5); Mean Corpuscular Hemoglobin 24.8 pg (28.0-33.3); Mean Platelet Volume 10.1 fL (9.4-12.4); Monocytes # 1.1 K/mcL (0.0-1.3); Monocytes % 10.8 %; Neutrophils # 5.6 K/mcL (1.6-8.9); Platelet Count 267 K/mcL (140-400); Red Blood Count 3.99 M/mcL (3.82-4.97); Red Cell Distribution Width 17.2 % (11.5-14.5); Segmented Neutrophils % 57.4 %
[2017-10-21 04:22] LABS: INR 2.5; Prothrombin Time 27.5 Seconds (9.4-12.1)
[2017-10-21 04:34] LABS: Calcium 8.6 mg/dL (8.6-10.3); Magnesium 1.5 mg/dL (1.6-2.6); Potassium 3.6 mEq/L (3.5-5.1)
--- NOTE | 2017-10-21 08:06 | Internal Med Progress Note ---
<Jonh Paredes - Last Filed: 10/21/17 09:10> Date of Encounter: 10/21/17 Time of Encounter: 09:10 - Assessment and plan (1) Dehydration Current Visit: Yes Status: Acute Assessment and plan: Patient has dehydration secondary to overdiuresis and strict fluid restriction as she was just admitted for CHF exacerbation. Currently we will hold Bumex for 1 day. Continue IV fluids. Blood pressure improved to 104/51. Reassess patient's fluid status tomorrow. (2) Atrial fibrillation Current Visit: Yes Status: Chronic Assessment and plan: Continue metoprolol and warfarin. Patient has a pacemaker as well. Qualifiers: Atrial fibrillation type: paroxysmal Qualified Code(s): I48.0 - Paroxysmal atrial fibrillation (3) Congestive heart failure Current Visit: Yes Status: Chronic Assessment and plan: Not in exacerbation. Patient has bilateral lower extremity edema. Lungs clear. Recent echo:LVEF 55-60%. Mildly dilated left ventricle. Indeterminate diastolic function. Normal right ventricular structure and function. Atypical septal motion consistent with paced rhythm. Mild aortic stenosis suggested by Doppler. Mean gradient 19 mmHg. Mild pulmonary hypertension. A device lead was visualized in the right atrium and right ventricle. Plan: Reassess fluid status tomorrow. We will likely restart diuresis tomorrow. Qualifiers: Heart failure type: unspecified Heart failure chronicity: unspecified Qualified Code(s): I50.9 - Heart failure, unspecified (4) Diabetes mellitus Current Visit: Yes Status: Chronic Assessment and plan: Insulin sliding scale. resume basal insulin. Accu-Cheks. Qualifiers: Diabetes mellitus type: type 2 Diabetes mellitus correction insulin use: without extermination inspector use Diabetes mellitus complication status: with unspecified complications Qualified Code(s): E11.8 - Type 2 diabetes mellitus with unspecified complications (5) Hypertension Current Visit: Yes Status: Chronic Assessment and plan: Resume antihypertensives continue home meds. Qualifiers: Hypertension type: essential hypertension Qualified Code(s): I10 - Essential (primary) hypertension (6) DVT prophylaxis Current Visit: No Status: Acute (7) KEIRY (acute kidney injury) Current Visit: Yes Status: Acute Assessment and plan: Improving. Secondary to hypovolemia from overdiuresis. Continue IV fluids. Patient also mentioned urinary retention for the past 2 days we will get a renal ultrasound. held trileptal as this may be cause of her hands jerking (8) Weakness Current Visit: Yes Status: Acute Assessment and plan: PT/OT consulted (9) Restrictive lung disease Current Visit: Yes Status: Chronic Assessment and plan: Patient had PFTs in 2014 showed restrictive lung disease. Likely secondary to patient being overweight. There may also be component of sleep apnea. Recommend outpatient sleep study. - Time Spent With Patient Total time spent is greater than 50% in coordination of care (as documented) at patient's floor/unit and/or counseling patient: - Subjective Interval history: Patient enjoying her breakfast this morning. She reports since her last admission and she has followed her for resection restrictively drinking only 1.2 L a day. She was also discharged on a higher dose of Bumex. She reports urinary retention for the past 2 days. This has not resolved as she has on IV fluids. Furthermore she reports jerking of her bilateral hands. She denies any passing out, dysuria. She denies chest pain. She reports shortness of breath. She states she is not on oxygen during the day and only uses oxygen at night. She is requiring oxygen here during the day. - Constitutional Vitals: Temp Pulse Resp BP Pulse Ox 98.3 F 70 16 104/51 97 10/21/17 07:22 10/21/17 07:22 10/21/17 07:22 10/21/17 07:22 10/21/17 07:22 - Other Additional findings: General: without distress HEENT: Head atraumatic, normocephalic, EOMI, PERRL, neck nontender to palpation , absent lymphadenopathy, Moist Mucous Membranes, Heart: Paced rhythm Lungs: Clear to auscultation bilaterally. Absent crackles Abdomen: Soft nontender, nondistended positive bowel sounds Skin: warm and dry, absent rash Extremities: Bilateral pedal edema. Neuro: Alert oriented 3 Vascular: Pedal and radial pulses 2 out of 4 Internal Medicine: Result - Labs CBC & Chem 7: 10/21/17 03:53 10/21/17 03:53 Labs: Short CBC 10/21/17 Range/Units 03:53 WBC 9.7 (4.3-11.1) K/mcL Hgb 9.9 L (11.5-15.4) g/dL Hct 32.3 L (35.3-44.9) % Plt Count 267 (140-400) K/mcL Neutrophils # 5.6 (1.6-8.9) K/mcL BMP 10/21/17 03:53 Sodium 135 L Potassium 3.6 Chloride 99 Carbon Dioxide 28 BUN 51 H Creatinine 1.60 H Glucose 151 H Calcium 8.6 - ABG Interpretation ABG results: PT/INR, D-dimer PT 27.5 Seconds (9.4-12.1) H 10/21/17 03:53 Consult Discharge Plan - Plan Referrals: Cady Bowles MD [Primary Care Provider] - <Earnest Lozada H - Last Filed: 10/21/17 12:52> Date of Encounter: 10/21/17 - Assessment and plan (1) Atrial fibrillation Current Visit: Yes Status: Chronic Qualifiers: Atrial fibrillation type: paroxysmal Qualified Code(s): I48.0 - Paroxysmal atrial fibrillation (2) Congestive heart failure Current Visit: Yes Status: Chronic Qualifiers: Heart failure type: unspecified Heart failure chronicity: unspecified Qualified Code(s): I50.9 - Heart failure, unspecified (3) Diabetes mellitus Current Visit: Yes Status: Chronic Qualifiers: Diabetes mellitus type: type 2 Diabetes mellitus correction insulin use: without extermination inspector use Diabetes mellitus complication status: with unspecified complications Qualified Code(s): E11.8 - Type 2 diabetes mellitus with unspecified complications (4) Hypertension Current Visit: Yes Status: Chronic Qualifiers: Hypertension type: essential hypertension Qualified Code(s): I10 - Essential (primary) hypertension (5) DVT prophylaxis Current Visit: No Status: Acute (6) Dehydration Current Visit: Yes Status: Acute (7) KEIRY (acute kidney injury) Current Visit: Yes Status: Acute (8) Weakness Current Visit: Yes Status: Acute (9) Restrictive lung disease Current Visit: Yes Status: Chronic - Time Spent With Patient Total time spent is greater than 50% in coordination of care (as documented) at patient's floor/unit and/or counseling patient: - Constitutional Vitals: Temp Pulse Resp BP Pulse Ox 97.6 F 66 16 109/66 97 10/21/17 11:37 10/21/17 11:37 10/21/17 11:37 10/21/17 11:37 10/21/17 11:37 Internal Medicine: Result - Labs CBC & Chem 7: 10/21/17 03:53 10/21/17 03:53 Labs: Short CBC 10/21/17 Range/Units 03:53 WBC 9.7 (4.3-11.1) K/mcL Hgb 9.9 L (11.5-15.4) g/dL Hct 32.3 L (35.3-44.9) % Plt Count 267 (140-400) K/mcL Neutrophils # 5.6 (1.6-8.9) K/mcL BMP 10/21/17 03:53 Sodium 135 L Potassium 3.6 Chloride 99 Carbon Dioxide 28 BUN 51 H Creatinine 1.60 H Glucose 151 H Calcium 8.6 - ABG Interpretation ABG results: PT/INR, D-dimer PT 27.5 Seconds (9.4-12.1) H 10/21/17 03:53 - Attending Attestation ARF likely secondary to overdiuresis and fluid restriction hold lasix, continue IVF hypomagnesemia, replete I examined this patient and my medical decision-making was reviewed with the Resident Physician. I agree with the documented findings, disposition and treatment plan as described except to the extent set forth below.
[2017-10-21] MEDS ORDERED: Bumetanide 1 MG TABLET PO SCH (09:00)
[2017-10-21] MEDS: Insulin LISPRO 300 UNITS/3 ML VIAL SQ SCH ×4 (10:26→23:53)
[2017-10-21] MEDS: Gabapentin 400 MG CAPSULE PO SCH (10:27)
[2017-10-21] MEDS: Metoprolol XL (24 HR) Succ 50 MG TAB.ER.24H PO SCH (10:27)
[2017-10-21] MEDS: Aspirin 81 MG TAB.CHEW PO SCH (10:27)
[2017-10-21] MEDS: Cholecalciferol (D-3) 1,000 UNIT TABLET PO SCH (10:27)
[2017-10-21] MEDS: Diltiazem CD (24hr) 180 MG CAPSULE PO SCH (10:27)
[2017-10-21] MEDS: 0.9 % Sodium Chloride 1,000 ML IVC SCH (10:52)
[2017-10-21] MEDS: Magnesium Oxide 400 MG TABLET PO SCH ×2 (10:53→23:53)
[2017-10-21] MEDS ORDERED: traMADol 50 MG TABLET PO PRN (15:46)
[2017-10-21] MEDS ORDERED: *HR* Warfarin 5 MG TABLET PO ONE (18:00)
[2017-10-21] MEDS ORDERED: Warfarin perPT PO PRN (18:00)
[2017-10-21] MEDS: Nystatin POWDER 30 GM BOTTLE TP SCH ×2 (19:43→23:53)
--- NOTE | 2017-10-21 20:27 | Electrocardiograph Report ---
[address] [address] Test Date: 2017-10-20 Pat Name: Julissa Watson Department: [id number] Room: 2NE18 Gender: F Food Service Agent: : [id number] Requested By: Shawn Resendiz Order Number: [id number] Reading MD: Bryce Arellano Measurements Intervals [place] Rate: 92 P: -89 ND: 248 QRS: -14 QRSD: 190 T: 84 QT: 433 QTc: 483 Interpretive Statements ELECTRONIC ATRIAL PACEMAKER LEFT BUNDLE BRANCH BLOCK Electronically Signed On 10-21-2017 20:25:35 EDT by Bryce Arellano
[2017-10-21] MEDS: Insulin DETEMIR 100 UNIT/ML X5UNITS SQ SCH (23:53)
[2017-10-22 05:51] LABS: Basophils % 0.5 %; Eosinophils # 0.3 K/mcL (0.0-0.6); Hematocrit 33.2 % (35.3-44.9); Hemoglobin 10.3 g/dL (11.5-15.4); Immature Granulocytes % 0.9 % (0-4); Lymphocytes # 2.3 K/mcL (0.6-4.6); Lymphocytes % 27.1 %; Mean Corpuscular Hemoglobin 25.9 pg (28.0-33.3); Mean Corpuscular Volume 83.4 fL (83.0-100.0); Mean Platelet Volume 10.1 fL (9.4-12.4); Monocytes # 0.9 K/mcL (0.0-1.3); Monocytes % 10.9 %; Neutrophils # 4.9 K/mcL (1.6-8.9); Platelet Count 283 K/mcL (140-400); Red Blood Count 3.98 M/mcL (3.82-4.97); Red Cell Distribution Width 17.6 % (11.5-14.5); Segmented Neutrophils % 57.6 %
[2017-10-22 05:55] LABS: INR 2.2; Prothrombin Time 24.5 Seconds (9.4-12.1)
[2017-10-22 06:06] LABS: BUN/Creatinine Ratio 38 (6-26); Blood Urea Nitrogen 30 mg/dL (8-23); Calcium 8.8 mg/dL (8.6-10.3); Carbon Dioxide 28 mEq/L (23-29); Chloride 102 mEq/L (98-107); Glucose 110 mg/dL (70-105); Osmolality,Calculated 291 (280-300); Potassium 3.9 mEq/L (3.5-5.1); Sodium 137 mEq/L (136-145); eGFR For African Americans > 60 (> 60); eGFR For Non-African Americans > 60 (> 60)
[2017-10-22] MEDS: Insulin LISPRO 300 UNITS/3 ML VIAL SQ SCH (09:01)
[2017-10-22] MEDS: Diltiazem CD (24hr) 180 MG CAPSULE PO SCH (09:04)
[2017-10-22] MEDS: Aspirin 81 MG TAB.CHEW PO SCH (09:04)
[2017-10-22] MEDS: Metoprolol XL (24 HR) Succ 50 MG TAB.ER.24H PO SCH (09:04)
[2017-10-22] MEDS: Nystatin POWDER 30 GM BOTTLE TP SCH (09:05)
[2017-10-22] MEDS: Magnesium Oxide 400 MG TABLET PO SCH (09:05)
[2017-10-22] MEDS: Cholecalciferol (D-3) 1,000 UNIT TABLET PO SCH (09:05)
[2017-10-22] MEDS: 0.9 % Sodium Chloride 1,000 ML IVC SCH (09:11)
--- NOTE | 2017-10-22 09:55 | Discharge Summary ---
- NOTES TO OUTPATIENT PROVIDER Notes to Outpatient Provider: Follow-up with primary care physician within the next 7 days. Decrease dose of Bumex down to 0.5 mg twice a day. Complete 5 days of cefdinir/antibiotic. Orders not resulted at time of discharge: Pending orders 10/23/17 04:00 PT/INR [Prothrombin Time INR] [COAG] AM 0400 10/24/17 04:00 PT/INR [Prothrombin Time INR] [COAG] AM 0400 10/25/17 04:00 PT/INR [Prothrombin Time INR] [COAG] AM 0400 Date of Encounter: 10/22/17 Time of Encounter: 09:52 - Discharge Diagnosis (1) KEIRY (acute kidney injury) Priority: Primary Status: Acute Assessment and Plan: ARF likely secondary to overdiuresis and fluid restriction (2) Atrial fibrillation Priority: Primary Status: Chronic Assessment and Plan: Continue metoprolol and warfarin. Patient has a pacemaker as well. Qualifiers: Atrial fibrillation type: paroxysmal Qualified Code(s): I48.0 - Paroxysmal atrial fibrillation (3) Congestive heart failure Priority: Secondary Status: Chronic Assessment and Plan: Not in exacerbation. Patient has bilateral lower extremity edema. Recent echo:LVEF 55-60%. Mildly dilated left ventricle. Indeterminate diastolic function. Normal right ventricular structure and function. Atypical septal motion consistent with paced rhythm. Mild aortic stenosis suggested by Doppler. Mean gradient 19 mmHg. Mild pulmonary hypertension. A device lead was visualized in the right atrium and right ventricle. 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 Diabetes mellitus complication status: with unspecified complications Qualified Code(s): E11.8 - Type 2 diabetes mellitus with unspecified complications (5) Hypertension Priority: Secondary Status: Chronic Qualifiers: Hypertension type: essential hypertension Qualified Code(s): I10 - Essential (primary) hypertension (6) Dehydration Priority: Primary Status: Acute (7) Weakness Priority: Primary Status: Acute (8) Restrictive lung disease Priority: Secondary Status: Chronic Assessment and Plan: Chronic respiratory failure (9) Bronchitis Priority: Secondary Status: Acute Assessment and Plan: Acute bacterial bronchitis Hospital course: Ms. Watson is a 72 year old female with past medical history of her diabetes not insulin-dependent, hypertension, dyslipidemia, atrial fibrillation on Coumadin metoprolol and Cardizem, morbid obesity, COPD on 2L, pacemaker, diastolic CHF who presented with weakness. The patient was recently discharged after an admission for COPD and CHF exacerbation and UTI treatment. Echo done last week showed EF 55-60% with indeterminate diastolic function. She has been fatigued since then and had a follow up with PCP where her BP was low and they couldnt get a read for which she was sent to the ED. In the ED, initial BP was 92/52 and came up with about 250 cc bolus. Was hypoxic on RA at 87 and put on supplemental O2 which she is on at home with good response. The patient was told to follow a fluid restriction diet of 1200 ml which she has religiously followed. Labs showed leukocytosis at 12.7 but no fever. creatinie 1.77 with baseline around .7. mag 1.4. Denies fever, chills, nausea, vomiting, headache, blurry vision, chest pain, shortness of breath, urinary symptoms, or other neurological symptoms. EKG showed paced rhythm. Chest x-ray was unremarkable. The patient has been complaining of greenish phlegm coming up. Cefdinir was a started Creatinine was 1.77 and improved after receiving IV fluids down to 0.8. INR today is 2.2. Magnesium was 1.4 and was repleted. Valsartan was held along with oxcarbazepine as a patient was having hyperreflexia. Amitriptyline was held as well. The patient is asymptomatic today. The patient was feeling much better, was given the option to stay another day but prefers to go home - Time Spent with Patient Total time spent providing and/or coordinating discharge services: Greater than 30 minutes (40 min) - Discharge Medications Prescriptions: Bumetanide [Bumex] 0.5 mg PO BID #60 tablet Cefdinir [Omnicef] 300 mg PO BID #10 capsule Home Medications: Acetaminophen [Tylenol Arthritis] 650 mg PO Q8H PRN 10/15/16 [History] Albuterol Sulfate [Proair Hfa] 2 puff IH Q4H PRN 10/15/16 [History] Amitriptyline [Elavil] 50 mg PO HS 10/15/16 [History] Aspirin 81 mg PO DAILY 10/15/16 [History] Atorvastatin Calcium [Lipitor] 20 mg PO DAILY 10/15/16 [History] Cholecalciferol (D-3) [Vitamin D] 2,000 unit PO DAILY 10/15/16 [History] Clotrimazole/Betameth Dip CRM [Lotrisone CRM] 1 appl TP BID 10/15/16 [History] Duloxetine HCl [Cymbalta] 60 mg PO DAILY 10/15/16 [History] Gabapentin [Neurontin] 800 mg PO TID 10/15/16 [History] Levothyroxine [Synthroid] 75 mcg PO DAILY 10/15/16 [History] OXcarbazepine [Oxcarbazepine] 600 mg PO BID 10/15/16 [History] Omeprazole [PriLOSEC] 40 mg PO DAILY 10/15/16 [History] Repaglinide [Prandin] 1 mg PO BID 10/15/16 [History] Tramadol HCl [Ultram] 50 mg PO QID PRN 10/15/16 [History] Valsartan [Diovan] 320 mg PO DAILY 10/15/16 [History] Warfarin [Coumadin] 2.5 mg PO SUTUTHSA 10/15/16 [History] Warfarin [Coumadin] 5 mg PO MOWEFR 10/15/16 [History] metFORMIN [Glucophage] 1,000 mg PO BIDWM 10/15/16 [History] Diltiazem HCl [Diltiazem 24Hr Cd] 360 mg PO DAILY 10/11/17 [History] Insulin Glargine,Hum.rec.anlog [Basaglar Kwikpen U-100] 25 unit SQ HS 10/11/17 [ History] Metoprolol Succinate [Toprol Xl] 50 mg PO DAILY 10/11/17 [History] Bumetanide [Bumex] 0.5 mg PO BID #60 tablet 10/22/17 [Rx] Cefdinir [Omnicef] 300 mg PO BID #10 capsule 10/22/17 [Rx] Allergies/Adverse Reactions: 3 Allergy/AdvReac Type Severity Reaction Status Date / Time codeine Allergy Headache Verified 10/20/17 19:09 lisinopril Allergy Cough Verified 10/20/17 19:09 carbamazepine [From Tegretol] AdvReac Anaphylaxis Verified 10/20/17 19:09 Date of admission: 10/20/17 20:12 Primary care physician: Cady Bowles, Consults: 10/21/17 12:54 Consult to Physical Therapy [CONS] Routine Comment: Evaluate, develop and implement POC Reason for Consult: very very weak many falls at home Does patient have active BEDREST order?: No Is patient medically & hemodynamically stable?: Yes Patient assessed for mobility or mobilized this visit?: No OT [Consult to Occupational Therapy] [CONS] Routine Comment: Evaluate, develop and implement POC Reason for Consult: very weak Does patient have active BEDREST order?: No Is patient medically & hemodynamically stable?: Yes Patient assessed for mobility or mobilized this visit?: No 10/21/17 12:56 Consult to Cartographic Technician [CONS] Routine Reason for SW Consult: patient has [facility] - Constitutional Vitals: Temp Pulse Resp BP Pulse Ox 98.3 F 70 19 131/64 97 10/22/17 07:25 10/22/17 07:25 10/22/17 07:25 10/22/17 07:25 10/22/17 07:25 General appearance: Present: A&O X 3, morbidly obese - Head Head exam: Present: atraumatic, normocephalic - Eye Eye exam: Present: PERRL, conjuntiva pink, sclera anicteric Pupils: Present: PERRL - Neck Neck exam general surgery: Present: supple, trachea midline. Absent: lymphadenopathy - Respiratory Respiratory exam: Present: CTAB. Absent: accessory muscle use, rales, rhonchi, wheezes - Cardiovascular Cardiovascular exam: Present: RRR, +S1, +S2. Absent: diastolic murmur, gallop, rubs, systolic murmur - GI/Abdominal GI/Abdominal exam: Present: normal bowel sounds, soft, no peritoneal signs. Absent: distended, tenderness - Extremities Exam Extremities exam: Present: pedal edema (+1 pitting edema in both lower extremities), warm, radial pulses palpable and symmetrical. Absent: calf tenderness, cyanotic - Neurological Exam Neurological exam: Present: CN II-XII intact, oriented X3, no focal deficits. Absent: pronater drift, facial droop, speech deficit - Skin Skin exam: Present: dry, intact - Patient Status Disposition: Home, Self-Care Condition: Good Overall status at discharge: patient is back to baseline - Discharge Instructions Follow Up With: Cady Bowles MD [Primary Care Provider] - - Diet and Activity Activity: increase activity as tolerated, wear oxygen at all times Diet: diabetic diet
[2017-10-22] MEDS ORDERED: Cefdinir 300 MG CAPSULE PO SCH (10:00)
[2017-10-22 11:11] VITALS: BP 120/60
--- NOTE | 2017-10-22 12:43 | Physician Discharge Referral ---
Home Health/Hosp Referral Info Transfer to: Home Health Provider in Charge Post Discharge: PCP - Diagnosis (1) KEIRY (acute kidney injury) Status: Acute (2) Atrial fibrillation Status: Chronic (3) Congestive heart failure Status: Chronic (4) Diabetes mellitus Status: Chronic (5) Hypertension Status: Chronic (6) Dehydration Status: Acute (7) Weakness Status: Acute (8) Restrictive lung disease Status: Chronic (9) Bronchitis Status: Acute - Respiratory Orders Smoking Cessation: Smoking cessation has been advised. For more information, call the [place] Tobacco Quit Line at 1-325-ZVTQ-NOW. - Diet/Nutrition Diet/Nutrition Orders: No Added Salt (CIPRIANO) - Services Needed Following services are medically necessary services: Home Health Aide, Physical Therapy, Occupational Therapy Home Care Orders: Follow-up with primary care physician within the next 7 days. Decrease dose of Bumex down to 0.5 mg twice a day. Complete 5 days of cefdinir/antibiotic. - Transfer Medications Prescriptions: Bumetanide [Bumex] 0.5 mg PO BID #60 tablet Cefdinir [Omnicef] 300 mg PO BID #10 capsule Home Medications: Acetaminophen [Tylenol Arthritis] 650 mg PO Q8H PRN 10/15/16 [History] Albuterol Sulfate [Proair Hfa] 2 puff IH Q4H PRN 10/15/16 [History] Amitriptyline [Elavil] 50 mg PO HS 10/15/16 [History] Aspirin 81 mg PO DAILY 10/15/16 [History] Atorvastatin Calcium [Lipitor] 20 mg PO DAILY 10/15/16 [History] Cholecalciferol (D-3) [Vitamin D] 2,000 unit PO DAILY 10/15/16 [History] Clotrimazole/Betameth Dip CRM [Lotrisone CRM] 1 appl TP BID 10/15/16 [History] Duloxetine HCl [Cymbalta] 60 mg PO DAILY 10/15/16 [History] Gabapentin [Neurontin] 800 mg PO TID 10/15/16 [History] Levothyroxine [Synthroid] 75 mcg PO DAILY 10/15/16 [History] OXcarbazepine [Oxcarbazepine] 600 mg PO BID 10/15/16 [History] Omeprazole [PriLOSEC] 40 mg PO DAILY 10/15/16 [History] Repaglinide [Prandin] 1 mg PO BID 10/15/16 [History] Tramadol HCl [Ultram] 50 mg PO QID PRN 10/15/16 [History] Valsartan [Diovan] 320 mg PO DAILY 10/15/16 [History] Warfarin [Coumadin] 2.5 mg PO SUTUTHSA 10/15/16 [History] Warfarin [Coumadin] 5 mg PO MOWEFR 10/15/16 [History] metFORMIN [Glucophage] 1,000 mg PO BIDWM 10/15/16 [History] Diltiazem HCl [Diltiazem 24Hr Cd] 360 mg PO DAILY 10/11/17 [History] Insulin Glargine,Hum.rec.anlog [Basaglar Kwikpen U-100] 25 unit SQ HS 10/11/17 [ History] Metoprolol Succinate [Toprol Xl] 50 mg PO DAILY 10/11/17 [History] Bumetanide [Bumex] 0.5 mg PO BID #60 tablet 10/22/17 [Rx] Cefdinir [Omnicef] 300 mg PO BID #10 capsule 10/22/17 [Rx] Allergies/Adverse Reactions: 3 Allergy/AdvReac Type Severity Reaction Status Date / Time codeine Allergy Headache Verified 10/20/17 19:09 lisinopril Allergy Cough Verified 10/20/17 19:09 carbamazepine [From Tegretol] AdvReac Anaphylaxis Verified 10/20/17 19:09 Certification: Further, I certify that my clinical findings support that this patient is homebound (i.e. absences from home require considerable and taxing effort and are for medical reasons or buddhism services or infrequently or short duration when for other reasons) because: Homebound Reason: Patient requires assistance of a person or device to safely leave home Attestation: My signature below is to certify that this patient is under my care and that I, or nurse practitioner, or a physician's therapeutic recreation assistant working with me, has a face-to -face encounter with this patient.
[2017-10-22] MEDS ORDERED: *HR* Warfarin 2.5 MG TABLET PO SCH (18:00)
[2017-10-23] MEDS ORDERED: *HR* Warfarin 5 MG TABLET PO SCH (18:00)
== END 2017-10-22 13:49 | disposition home or self-care (01) ==
LOC: 2NENU 16:18 → EMEROO 16:18 → 2NENU 21:18
PROVIDERS: ADMIT Internal Medicine; ATTEND Internal Medicine

== ENCOUNTER 2019-04-30 11:59 | Observation (INO) ==
[2019-04-30 13:08] LABS: Basophils # 0.1 K/mcL (0.0-0.2); Basophils % 0.6 %; Eosinophils # 0.2 K/mcL (0.0-0.6); Eosinophils % 2.2 %; Hematocrit 35.1 % (35.3-44.9); Hemoglobin 10.8 g/dL (11.5-15.4); Immature Granulocytes % 0.4 % (0-4); Lymphocytes # 1.9 K/mcL (0.6-4.6); Lymphocytes % 21.4 %; Mean Corpuscular HGB Conc 30.8 g/dL (31.6-35.5); Mean Corpuscular Hemoglobin 30.9 pg (28.0-33.3); Mean Corpuscular Volume 100.6 fL (83.0-100.0); Mean Platelet Volume 9.6 fL (9.4-12.4); Monocytes # 0.7 K/mcL (0.0-1.3); Monocytes % 7.9 %; Neutrophils # 6.1 K/mcL (1.6-8.9); Platelet Count 281 K/mcL (140-400); Red Blood Count 3.49 M/mcL (3.82-4.97); Red Cell Distribution Width 14.6 % (11.5-14.5); Segmented Neutrophils % 67.5 %
[2019-04-30 13:14] LABS: INR 1.6; Prothrombin Time 18.6 Seconds (9.4-12.1)
[2019-04-30 13:17] LABS: Activated Partial Thrombo Time 37.8 Seconds (26.0-36.0)
[2019-04-30 13:19] LABS: Bilirubin,Urine Negative (Negative); Blood,Urine Large (Negative); Clarity,Urine Clear (Clear); Color,Urine Yellow (Yellow); Glucose,Urine (UA) Normal (Normal); Ketones,Urine Negative (Negative); Leukocyte Esterase,Urine Small (Negative); Nitrite,Urine Negative (Negative); Protein,Urine Negative (Neg-Trace); Specific Gravity,Urine 1.021 (1.010-1.025); Urobilinogen,Urine Normal (Normal)
[2019-04-30 13:20] LABS: Bacteria,Urine None Seen per hpf (None-Few); Hyaline Casts,Urine None Seen per lpf (None-Few); RBC,Urine 50-100 per hpf (0-3); Squamous Epithelial Cell,Urine Many per lpf (None-Few)
[2019-04-30 13:28] LABS: BUN/Creatinine Ratio 33 (6-26); Blood Urea Nitrogen 41 mg/dL (8-23); Carbon Dioxide 26 mEq/L (23-29); Chloride 101 mEq/L (98-107); Glucose 178 mg/dL (70-105); Osmolality,Calculated 297 (280-300); Potassium 4.8 mEq/L (3.5-5.1); Sodium 136 mEq/L (136-145); eGFR For African Americans 52 (> 60); eGFR For Non-African Americans 43 (> 60)
[2019-04-30 13:29] LABS: Troponin I < 0.03 ng/mL (< 0.04)
[2019-04-30] MEDS ORDERED: Ipratropium/Albuterol Neb 3 ML IH ONE (16:09)
[2019-04-30] MEDS ORDERED: Naloxone 0.4 MG/ML INJ IVP PRN (16:31)
[2019-04-30] MEDS ORDERED: Acetaminophen 325 MG TABLET PO PRN (16:31)
[2019-04-30] MEDS ORDERED: Ondansetron 4 MG/2 ML VIAL IVP PRN (16:31)
[2019-04-30] MEDS ORDERED: *HR* HYDROcodone/Acet 5/325 mg TABLET PO PRN (16:31)
[2019-04-30] MEDS ORDERED: Bumetanide 1 MG TABLET PO PRN (17:21)
[2019-04-30] MEDS ORDERED: Clotrimazole/Betameth Dip CRM 45 APPL/45 GM TUBE TP PRN (17:21)
[2019-04-30] MEDS ORDERED: D5% in Water 1,000 ML IVC PRN (17:27)
[2019-04-30] MEDS ORDERED: Dextrose Gel 15 GM/37.5 ML TUBE PO PRN ×2 (17:27)
[2019-04-30] MEDS ORDERED: *HR* Dextrose 50 % in Water (Syg) 50 ML SYRINGE IVP PRN (17:27)
[2019-04-30] MEDS ORDERED: Warfarin perPT PO PRN (18:00)
[2019-04-30] MEDS ORDERED: *HR* Warfarin 5 MG TABLET PO ONE (19:23)
[2019-04-30] MEDS: OXcarbazepine 150 MG TABLET PO SCH (20:13)
[2019-04-30] MEDS: Gabapentin 400 MG CAPSULE PO SCH (20:13)
[2019-04-30] MEDS: *HR* Repaglinide 1 MG TABLET PO SCH (20:15)
[2019-04-30] MEDS: Insulin DETEMIR 100 UNIT/ML X5UNITS SQ SCH (20:16)
[2019-05-01 02:41] LABS: Basophils % 0.4 %; Eosinophils # 0.2 K/mcL (0.0-0.6); Eosinophils % 2.2 %; Hematocrit 32.2 % (35.3-44.9); Hemoglobin 10.3 g/dL (11.5-15.4); Immature Granulocytes % 0.3 % (0-4); Lymphocytes # 2.4 K/mcL (0.6-4.6); Lymphocytes % 26.5 %; Mean Corpuscular Hemoglobin 30.8 pg (28.0-33.3); Mean Corpuscular Volume 96.4 fL (83.0-100.0); Mean Platelet Volume 9.7 fL (9.4-12.4); Monocytes # 0.8 K/mcL (0.0-1.3); Monocytes % 8.8 %; Neutrophils # 5.7 K/mcL (1.6-8.9); Platelet Count 292 K/mcL (140-400); Red Blood Count 3.34 M/mcL (3.82-4.97); Red Cell Distribution Width 14.6 % (11.5-14.5); Segmented Neutrophils % 61.8 %; White Blood Count 9.1 K/mcL (4.3-11.1)
[2019-05-01 02:47] LABS: INR 1.8
[2019-05-01 03:02] LABS: Calcium 8.8 mg/dL (8.6-10.3); Potassium 4.5 mEq/L (3.5-5.1)
[2019-05-01] MEDS: Insulin LISPRO 300 UNITS/3 ML VIAL SQ SCH ×3 (08:42→18:10)
[2019-05-01] MEDS: Aspirin Enteric Coated 81 MG Tablet PO SCH (08:57)
[2019-05-01] MEDS: Bumetanide 1 MG TABLET PO SCH ×2 (08:58→20:58)
[2019-05-01] MEDS: Spironolactone 25 MG TABLET PO SCH (08:59)
[2019-05-01] MEDS: OXcarbazepine 150 MG TABLET PO SCH ×2 (08:59→20:58)
[2019-05-01] MEDS: Cholecalciferol (D-3) 1,000 UNIT (25MCG) TABLET PO SCH (08:59)
[2019-05-01] MEDS: Diltiazem CD (24hr) 180 MG CAPSULE PO SCH (08:59)
[2019-05-01] MEDS: *HR* Repaglinide 1 MG TABLET PO SCH ×2 (08:59→18:09)
[2019-05-01] MEDS: Gabapentin 400 MG CAPSULE PO SCH ×3 (08:59→20:58)
[2019-05-01] MEDS: Insulin DETEMIR 100 UNIT/ML X5UNITS SQ SCH ×2 (09:00→21:00)
[2019-05-01] MEDS ORDERED: VALSARTAN 320 MG PO SCH (09:00)
[2019-05-01] MEDS ORDERED: Metoprolol XL (24 HR) Succ 50 MG TAB.ER.24H PO SCH (09:00)
[2019-05-01 10:27] LABS: Adenovirus Not Detected (Not Detect); Bordetella Pertussis Not Detected (Not Detect); Chlamydophila pneumoniae Not Detected (Not Detect); Coronavirus 229E Not Detected (Not Detect); Coronavirus HKU1 Not Detected (Not Detect); Coronavirus NL63 Not Detected (Not Detect); Coronavirus OC43 Not Detected (Not Detect); Human Metapneumovirus Not Detected (Not Detect); Human Rhinovirus/Enterovirus Not Detected (Not Detect); Influenza A Subtype 2009 H1 Not Detected (Not Detect); Influenza A Untypeable Not Detected (Not Detect); Influenza B Not Detected (Not Detect); Mycoplasma pneumoniae Not Detected (Not Detect); Parainfluenza Virus 1 Not Detected (Not Detect); Parainfluenza Virus 2 Not Detected (Not Detect); Parainfluenza Virus 3 Not Detected (Not Detect); Parainfluenza Virus 4 Not Detected (Not Detect); Respiratory Syncytial Virus Not Detected (Not Detect)
[2019-05-01] MEDS: Levalbuterol 1 PUFF INHALER IH SCH ×3 (10:55→21:51)
[2019-05-01] MEDS ORDERED: *HR* Warfarin 5 MG TABLET PO ONE (18:00)
[2019-05-02] MEDS: Levalbuterol 1 PUFF INHALER IH SCH ×4 (03:15→22:32)
[2019-05-02 05:22] LABS: Hematocrit 34.8 % (35.3-44.9); Mean Corpuscular HGB Conc 31.6 g/dL (31.6-35.5); Mean Corpuscular Hemoglobin 31.3 pg (28.0-33.3); Mean Corpuscular Volume 98.9 fL (83.0-100.0); Mean Platelet Volume 9.9 fL (9.4-12.4); Platelet Count 260 K/mcL (140-400); Red Blood Count 3.52 M/mcL (3.82-4.97); Red Cell Distribution Width 14.6 % (11.5-14.5); White Blood Count 10.1 K/mcL (4.3-11.1)
[2019-05-02 05:30] LABS: INR 1.7; Prothrombin Time 19.7 Seconds (9.4-12.1)
[2019-05-02 06:00] LABS: Calcium 9.3 mg/dL (8.6-10.3); Potassium 4.6 mEq/L (3.5-5.1)
[2019-05-02] MEDS: Diltiazem CD (24hr) 180 MG CAPSULE PO SCH (07:38)
[2019-05-02] MEDS: Gabapentin 400 MG CAPSULE PO SCH ×3 (07:39→20:51)
[2019-05-02] MEDS: Bumetanide 1 MG TABLET PO SCH ×2 (07:41→20:51)
[2019-05-02] MEDS: Aspirin Enteric Coated 81 MG Tablet PO SCH (07:41)
[2019-05-02] MEDS: Cholecalciferol (D-3) 1,000 UNIT (25MCG) TABLET PO SCH (07:41)
[2019-05-02] MEDS: Spironolactone 25 MG TABLET PO SCH (07:41)
[2019-05-02] MEDS: OXcarbazepine 150 MG TABLET PO SCH ×2 (07:42→20:52)
[2019-05-02] MEDS: *HR* Repaglinide 1 MG TABLET PO SCH ×2 (07:42→16:53)
[2019-05-02] MEDS: Metoprolol XL (24 HR) Succ 50 MG TAB.ER.24H PO SCH (07:43)
[2019-05-02] MEDS: Insulin DETEMIR 100 UNIT/ML X5UNITS SQ SCH ×2 (07:46→21:39)
[2019-05-02] MEDS: Insulin LISPRO 300 UNITS/3 ML VIAL SQ SCH ×3 (07:49→16:58)
[2019-05-02] MEDS ORDERED: *HR* Warfarin 3 MG TABLET PO ONE (18:00)
[2019-05-03] MEDS: Levalbuterol 1 PUFF INHALER IH SCH ×2 (04:12→10:21)
[2019-05-03 06:30] LABS: INR 2.3; Prothrombin Time 25.7 Seconds (9.4-12.1)
[2019-05-03 06:51] LABS: Calcium 9.3 mg/dL (8.6-10.3)
[2019-05-03] MEDS: Bumetanide 1 MG TABLET PO SCH (08:03)
[2019-05-03] MEDS: *HR* Repaglinide 1 MG TABLET PO SCH (08:03)
[2019-05-03] MEDS: Metoprolol XL (24 HR) Succ 50 MG TAB.ER.24H PO SCH (08:04)
[2019-05-03] MEDS: Diltiazem CD (24hr) 180 MG CAPSULE PO SCH (08:05)
[2019-05-03] MEDS: OXcarbazepine 150 MG TABLET PO SCH (08:05)
[2019-05-03] MEDS: Aspirin Enteric Coated 81 MG Tablet PO SCH (08:05)
[2019-05-03] MEDS: Cholecalciferol (D-3) 1,000 UNIT (25MCG) TABLET PO SCH (08:06)
[2019-05-03] MEDS: Spironolactone 25 MG TABLET PO SCH (08:06)
[2019-05-03] MEDS: Gabapentin 400 MG CAPSULE PO SCH (08:06)
[2019-05-03] MEDS: Insulin LISPRO 300 UNITS/3 ML VIAL SQ SCH ×2 (08:33→13:03)
[2019-05-03] MEDS: Insulin DETEMIR 100 UNIT/ML X5UNITS SQ SCH (10:59)
[2019-05-03 11:53] VITALS: BP 121/65
== END 2019-05-03 15:09 ==
LOC: 3BNU 11:59 → EMEROOARM 11:59 → SUATTDRO 16:36 → 3BNU 17:10
PROVIDERS: ADMIT Internal Medicine; ATTEND Internal Medicine

== ENCOUNTER 2019-10-27 10:39 | Observation (INO) ==
[2019-10-27 11:51] LABS: Basophils % 0.5 %; Eosinophils # 0.2 K/mcL (0.0-0.6); Eosinophils % 2.2 %; Hematocrit 35.2 % (35.3-44.9); Hemoglobin 10.8 g/dL (11.5-15.4); Immature Granulocytes % 0.6 % (0-4); Lymphocytes # 1.7 K/mcL (0.6-4.6); Lymphocytes % 20.1 %; Mean Corpuscular HGB Conc 30.7 g/dL (31.6-35.5); Mean Corpuscular Hemoglobin 29.5 pg (28.0-33.3); Mean Corpuscular Volume 96.2 fL (83.0-100.0); Mean Platelet Volume 9.8 fL (9.4-12.4); Monocytes # 0.7 K/mcL (0.0-1.3); Monocytes % 7.9 %; Neutrophils # 5.9 K/mcL (1.6-8.9); Platelet Count 306 K/mcL (140-400); Red Blood Count 3.66 M/mcL (3.82-4.97); Red Cell Distribution Width 15.7 % (11.5-14.5); Segmented Neutrophils % 68.7 %; White Blood Count 8.6 K/mcL (4.3-11.1)
[2019-10-27 11:57] LABS: INR 2.1; Prothrombin Time 24.3 Seconds (9.4-12.1)
[2019-10-27 12:00] LABS: Activated Partial Thrombo Time 38.6 Seconds (26.0-36.0)
[2019-10-27 12:07] LABS: Bilirubin,Urine Negative (Negative); Blood,Urine Small (Negative); Clarity,Urine Turbid (Clear); Color,Urine Yellow (Yellow); Glucose,Urine (UA) Normal (Normal); Ketones,Urine Negative (Negative); Leukocyte Esterase,Urine Large (Negative); Nitrite,Urine Positive (Negative); Protein,Urine 30 mg/dL (Neg-Trace); Urobilinogen,Urine Normal (Normal)
[2019-10-27 12:09] LABS: Bacteria,Urine Many per hpf (None-Few); Hyaline Casts,Urine None Seen per lpf (None-Few); Squamous Epithelial Cell,Urine Many per lpf (None-Few); WBC,Urine TNTC per hpf (0-3)
[2019-10-27 12:25] LABS: Alanine Aminotransferase 26 Units/L (7-52); Albumin 3.6 g/dL (3.5-5.7); Alkaline Phosphatase 127 Units/L (34-104); Aspartate Amino Transferase 24 Units/L (13-39); BUN/Creatinine Ratio 24 (6-26); Bilirubin,Direct 0.1 mg/dL (0.0-0.2); Bilirubin,Indirect 0.2 mg/dL (0.0-1.0); Bilirubin,Total 0.3 mg/dL (0.3-1.0); Blood Urea Nitrogen 30 mg/dL (8-23); Calcium 8.9 mg/dL (8.6-10.3); Carbon Dioxide 27 mEq/L (23-29); Chloride 100 mEq/L (98-107); Globulin 3.5 g/dL (2.4-3.5); Glucose 191 mg/dL (70-105); Osmolality,Calculated 293 (280-300); Potassium 4.6 mEq/L (3.5-5.1); Sodium 136 mEq/L (136-145); Total Protein 7.1 g/dL (6.4-8.9); Troponin I < 0.03 ng/mL (< 0.04); eGFR For African Americans 51 (> 60); eGFR For Non-African Americans 42 (> 60)
[2019-10-27] MEDS ORDERED: cefTRIAXone 1,000 MG in Water for inj. (sterile) 10 ML IVP ONE (12:28)
[2019-10-27] MEDS ORDERED: 0.9 % Sodium Chloride 500 ML IVC ONE (12:28)
[2019-10-27] MEDS ORDERED: Ondansetron 4 MG/2 ML VIAL IVP PRN (12:41)
[2019-10-27] MEDS: Acetaminophen 325 MG TABLET PO PRN ×2 (12:52→21:52)
[2019-10-27] MEDS ORDERED: *HR* Warfarin 5 MG TABLET PO SCH (16:15)
[2019-10-27] MEDS ORDERED: *HR* Dextrose 50 % in Water (Syg) 50 ML SYRINGE IVP PRN (16:43)
[2019-10-27] MEDS ORDERED: D5% in Water 1,000 ML IVC PRN (16:43)
[2019-10-27] MEDS ORDERED: Dextrose Gel 15 GM/37.5 ML TUBE PO PRN ×2 (16:43)
[2019-10-27] MEDS ORDERED: *HR* Warfarin 2.5 MG TABLET PO ONE (18:00)
[2019-10-27] MEDS ORDERED: Warfarin perPT PO PRN (18:00)
[2019-10-27] MEDS: OXcarbazepine 150 MG TABLET PO SCH (21:51)
[2019-10-27] MEDS: Bumetanide 1 MG TABLET PO SCH (21:52)
[2019-10-28 05:23] LABS: Hematocrit 32.9 % (35.3-44.9); Hemoglobin 10.3 g/dL (11.5-15.4); Mean Corpuscular HGB Conc 31.3 g/dL (31.6-35.5); Mean Corpuscular Hemoglobin 29.9 pg (28.0-33.3); Mean Corpuscular Volume 95.4 fL (83.0-100.0); Mean Platelet Volume 9.5 fL (9.4-12.4); Platelet Count 300 K/mcL (140-400); Red Blood Count 3.45 M/mcL (3.82-4.97); Red Cell Distribution Width 15.8 % (11.5-14.5); White Blood Count 8.8 K/mcL (4.3-11.1)
[2019-10-28 05:26] LABS: Prothrombin Time 22.8 Seconds (9.4-12.1)
[2019-10-28 05:42] LABS: Calcium 8.8 mg/dL (8.6-10.3); Magnesium 1.7 mg/dL (1.6-2.6); Phosphorous 4.5 mg/dL (2.7-4.5); Potassium 4.3 mEq/L (3.5-5.1)
[2019-10-28] MEDS ORDERED: INSULIN DEGLUDEC 76 UNIT SQ SCH (09:00)
[2019-10-28] MEDS ORDERED: Metoprolol XL (24 HR) Succ 50 MG TAB.ER.24H PO SCH (09:00)
[2019-10-28] MEDS: DilTIAZem CD (24hr) 180 MG CAP.ER.24H PO SCH (10:41)
[2019-10-28] MEDS: Aspirin Enteric Coated 81 MG Tablet PO SCH (10:41)
[2019-10-28] MEDS: Bumetanide 1 MG TABLET PO SCH ×2 (10:41→18:38)
[2019-10-28] MEDS: Gabapentin 400 MG CAPSULE PO SCH ×3 (10:42→21:49)
[2019-10-28] MEDS: OXcarbazepine 150 MG TABLET PO SCH ×2 (10:42→21:49)
[2019-10-28] MEDS: Spironolactone 25 MG TABLET PO SCH (10:42)
[2019-10-28] MEDS: Insulin DETEMIR 100 UNIT/ML X5UNITS SQ SCH (10:43)
[2019-10-28] MEDS: cefTRIAXone 1,000 MG in 0.9 % Sodium Chloride Mini Bag 100 ML IVPB SCH (10:43)
[2019-10-28] MEDS ORDERED: Sennosides 8.6 MG TABLET PO ONE (13:45)
[2019-10-28] MEDS ORDERED: *HR* Warfarin 5 MG TABLET PO SCH (16:03)
[2019-10-28] MEDS ORDERED: *HR* Warfarin 5 MG TABLET PO ONE (18:00)
[2019-10-28] MEDS: Insulin LISPRO 300 UNITS/3 ML VIAL SQ SCH ×2 (18:38→21:50)
[2019-10-29] MEDS: Insulin LISPRO 300 UNITS/3 ML VIAL SQ SCH ×5 (07:46→21:37)
[2019-10-29] MEDS: Bumetanide 1 MG TABLET PO SCH (07:47)
[2019-10-29] MEDS: cefTRIAXone 1,000 MG in 0.9 % Sodium Chloride Mini Bag 100 ML IVPB SCH (07:47)
[2019-10-29] MEDS: Aspirin Enteric Coated 81 MG Tablet PO SCH (07:47)
[2019-10-29] MEDS: OXcarbazepine 150 MG TABLET PO SCH ×2 (07:48→21:27)
[2019-10-29] MEDS: Gabapentin 400 MG CAPSULE PO SCH (07:48)
[2019-10-29] MEDS: Spironolactone 25 MG TABLET PO SCH (07:48)
[2019-10-29] MEDS: DilTIAZem CD (24hr) 180 MG CAP.ER.24H PO SCH (07:48)
[2019-10-29] MEDS: Insulin DETEMIR 100 UNIT/ML X5UNITS SQ SCH (07:49)
[2019-10-29 07:52] LABS: INR 1.6; Prothrombin Time 17.8 Seconds (9.4-12.1)
[2019-10-29 07:55] LABS: Calcium 9.2 mg/dL (8.6-10.3); Potassium 4.3 mEq/L (3.5-5.1)
[2019-10-29] MEDS ORDERED: *HR* Enoxaparin 100 MG/ML SYRINGE SQ SCH (12:00)
[2019-10-29] MEDS ORDERED: *HR* Warfarin 2.5 MG TABLET PO ONE (18:00)
[2019-10-29] MEDS: *HR* Enoxaparin 100 MG/ML SYRINGE SQ SCH (21:28)
[2019-10-30] MEDS: Acetaminophen 325 MG TABLET PO PRN (02:45)
[2019-10-30] MEDS: *HR* Enoxaparin 100 MG/ML SYRINGE SQ SCH ×2 (06:31→16:52)
[2019-10-30 07:31] LABS: INR 1.7; Prothrombin Time 18.8 Seconds (9.4-12.1)
[2019-10-30] MEDS: cefTRIAXone 1,000 MG in 0.9 % Sodium Chloride Mini Bag 100 ML IVPB SCH (08:31)
[2019-10-30] MEDS: Aspirin Enteric Coated 81 MG Tablet PO SCH (08:32)
[2019-10-30] MEDS: DilTIAZem CD (24hr) 180 MG CAP.ER.24H PO SCH (08:32)
[2019-10-30] MEDS: OXcarbazepine 150 MG TABLET PO SCH ×2 (08:32→20:34)
[2019-10-30] MEDS: Spironolactone 25 MG TABLET PO SCH (08:32)
[2019-10-30] MEDS: Insulin DETEMIR 100 UNIT/ML X5UNITS SQ SCH (08:37)
[2019-10-30 08:43] LABS: Calcium 9.3 mg/dL (8.6-10.3); Potassium 3.7 mEq/L (3.5-5.1)
[2019-10-30] MEDS: Insulin LISPRO 300 UNITS/3 ML VIAL SQ SCH ×3 (12:17→20:35)
[2019-10-30] MEDS ORDERED: *HR* Warfarin 2.5 MG TABLET PO ONE (18:00)
[2019-10-31] MEDS: *HR* Enoxaparin 100 MG/ML SYRINGE SQ SCH (06:00)
[2019-10-31 06:47] LABS: INR 1.6; Prothrombin Time 18.3 Seconds (9.4-12.1)
[2019-10-31 07:15] LABS: Calcium 9.5 mg/dL (8.6-10.3); Potassium 4.8 mEq/L (3.5-5.1)
[2019-10-31] MEDS: cefTRIAXone 1,000 MG in 0.9 % Sodium Chloride Mini Bag 100 ML IVPB SCH (08:28)
[2019-10-31] MEDS: Insulin LISPRO 300 UNITS/3 ML VIAL SQ SCH ×2 (08:28→11:28)
[2019-10-31] MEDS: Aspirin Enteric Coated 81 MG Tablet PO SCH (08:28)
[2019-10-31] MEDS: OXcarbazepine 150 MG TABLET PO SCH (08:29)
[2019-10-31] MEDS: Spironolactone 25 MG TABLET PO SCH (08:29)
[2019-10-31] MEDS: DilTIAZem CD (24hr) 180 MG CAP.ER.24H PO SCH (08:29)
[2019-10-31] MEDS: Insulin DETEMIR 100 UNIT/ML X5UNITS SQ SCH (08:32)
[2019-10-31] MEDS ORDERED: Insulin DETEMIR 100 UNIT/ML X5UNITS SQ ONE (11:00)
[2019-10-31 11:01] VITALS: BP 147/71
[2019-10-31] MEDS ORDERED: *HR* Warfarin 5 MG TABLET PO ONE (18:00)
[2019-11-01] MEDS ORDERED: Insulin DETEMIR 100 UNIT/ML X5UNITS SQ SCH (09:00)
[2019-11-01] MEDS ORDERED: Cefdinir 300 MG CAPSULE PO SCH (09:00)
== END 2019-10-31 15:33 | disposition other institution (70) ==
LOC: 3ANU 10:39 → EMEROOARM 10:39 → SUATTDRO 12:54 → 3ANU 13:55
PROVIDERS: ADMIT Internal Medicine; ATTEND Internal Medicine

== ENCOUNTER 2020-09-13 17:13 | Observation (INO) ==
[2020-09-13] MEDS ORDERED: Isovue-370 500 ML BOTTLE IVP ONE (18:42)
[2020-09-13 19:35] LABS: Basophils # 0.1 K/mcL (0.0-0.2); Basophils % 0.5 %; Eosinophils # 0.3 K/mcL (0.0-0.6); Eosinophils % 2.7 %; Hematocrit 33.1 % (35.3-44.9); Hemoglobin 10.1 g/dL (11.5-15.4); Immature Granulocytes % 0.5 % (0-4); Lymphocytes # 1.8 K/mcL (0.6-4.6); Lymphocytes % 18.5 %; Mean Corpuscular HGB Conc 30.5 g/dL (31.6-35.5); Mean Corpuscular Hemoglobin 29.1 pg (28.0-33.3); Mean Corpuscular Volume 95.4 fL (83.0-100.0); Mean Platelet Volume 9.5 fL (9.4-12.4); Monocytes # 0.8 K/mcL (0.0-1.3); Monocytes % 8.8 %; Neutrophils # 6.5 K/mcL (1.6-8.9); Platelet Count 288 K/mcL (140-400); Red Blood Count 3.47 M/mcL (3.82-4.97); Red Cell Distribution Width 15.3 % (11.5-14.5); White Blood Count 9.5 K/mcL (4.3-11.1)
[2020-09-13 20:00] LABS: Potassium 3.8 mEq/L (3.5-5.1)
[2020-09-13] MEDS ORDERED: *HR* OxyCODONE/APAP 5/325 TABLET PO ONE (21:18)
[2020-09-14] MEDS ORDERED: Naloxone 0.4 MG/ML INJ IVP PRN (02:09)
[2020-09-14] MEDS ORDERED: Ondansetron 4 MG/2 ML VIAL IVP PRN (02:09)
[2020-09-14] MEDS ORDERED: Acetaminophen 325 MG TABLET PO PRN (02:09)
[2020-09-14] MEDS ORDERED: *HR* Dextrose 50 % in Water (Vial) 50 ML VIAL IVP PRN (04:32)
[2020-09-14] MEDS ORDERED: Dextrose Gel 15 GM/37.5 ML TUBE PO PRN ×2 (04:32)
[2020-09-14] MEDS ORDERED: D5% in Water 1,000 ML IVC PRN (04:32)
[2020-09-14 05:02] LABS: Basophils # 0.1 K/mcL (0.0-0.2); Basophils % 0.5 %; Eosinophils # 0.3 K/mcL (0.0-0.6); Eosinophils % 2.8 %; Hematocrit 31.4 % (35.3-44.9); Hemoglobin 9.7 g/dL (11.5-15.4); Immature Granulocytes % 0.4 % (0-4); Lymphocytes # 2.3 K/mcL (0.6-4.6); Lymphocytes % 22.1 %; Mean Corpuscular HGB Conc 30.9 g/dL (31.6-35.5); Mean Corpuscular Hemoglobin 29.3 pg (28.0-33.3); Mean Corpuscular Volume 94.9 fL (83.0-100.0); Mean Platelet Volume 9.5 fL (9.4-12.4); Monocytes % 9.8 %; Neutrophils # 6.7 K/mcL (1.6-8.9); Platelet Count 313 K/mcL (140-400); Red Blood Count 3.31 M/mcL (3.82-4.97); Red Cell Distribution Width 15.3 % (11.5-14.5); Segmented Neutrophils % 64.4 %; White Blood Count 10.4 K/mcL (4.3-11.1)
[2020-09-14 05:15] LABS: INR 4.4; Prothrombin Time 48.5 Seconds (9.4-12.1)
[2020-09-14 05:29] LABS: Albumin 3.1 g/dL (3.5-5.7); Albumin/Globulin Ratio 0.9 (1.1-2.2); Bilirubin,Total 0.6 mg/dL (0.3-1.0); Globulin 3.5 g/dL (2.4-3.5); Magnesium 1.4 mg/dL (1.6-2.6); Phosphorous 3.8 mg/dL (2.7-4.5); Potassium 3.5 mEq/L (3.5-5.1); Total Protein 6.6 g/dL (6.4-8.9)
[2020-09-14] MEDS: Insulin LISPRO 300 UNITS/3 ML VIAL SUBQ SCH ×4 (09:36→20:02)
[2020-09-14] MEDS: *HR* OxyCODONE Immed Rel 5 MG TABLET PO PRN ×2 (09:42→20:02)
[2020-09-14] MEDS: Nystatin POWDER 30 GM BOTTLE TP SCH ×2 (11:07→20:02)
[2020-09-14] MEDS: cefTRIAXone 1,000 MG in Water for inj. (sterile) 10 ML IVP SCH (17:30)
[2020-09-14] MEDS: *HR* HYDROcodone/Acet 5/325 mg TABLET PO PRN (17:45)
[2020-09-14] MEDS ORDERED: Methyl Salicylate/Menthol 57 APPL/57 GM TUBE TP PRN (20:14)
[2020-09-14] MEDS ORDERED: Methyl Salicylate/Menthol 85 APPL/85 GM TUBE TP PRN (21:30)
[2020-09-15] MEDS: *HR* OxyCODONE Immed Rel 5 MG TABLET PO PRN ×2 (03:44→14:35)
[2020-09-15] MEDS: Insulin LISPRO 300 UNITS/3 ML VIAL SUBQ SCH ×4 (08:14→22:28)
[2020-09-15] MEDS: Nystatin POWDER 30 GM BOTTLE TP SCH ×2 (08:18→22:36)
[2020-09-15] MEDS: Bumetanide 1 MG TABLET PO SCH (14:34)
[2020-09-15 14:57] LABS: INR 3.7; Prothrombin Time 41.2 Seconds (9.4-12.1)
[2020-09-15 15:14] LABS: Albumin 3.4 g/dL (3.5-5.7); Albumin/Globulin Ratio 0.9 (1.1-2.2); Bilirubin,Total 0.9 mg/dL (0.3-1.0); Calcium 8.9 mg/dL (8.6-10.3); Globulin 3.9 g/dL (2.4-3.5); Potassium 3.6 mEq/L (3.5-5.1); Total Protein 7.3 g/dL (6.4-8.9)
[2020-09-15] MEDS: cefTRIAXone 1,000 MG in Water for inj. (sterile) 10 ML IVP SCH (17:19)
[2020-09-15] MEDS ORDERED: Warfarin perPT PO PRN (18:00)
[2020-09-15] MEDS: Melatonin 3 MG TABLET PO PRN (22:34)
[2020-09-15] MEDS: OXcarbazepine 150 MG TABLET PO SCH (22:35)
[2020-09-16 05:21] LABS: Hematocrit 33.2 % (35.3-44.9); Hemoglobin 10.3 g/dL (11.5-15.4); Mean Corpuscular Hemoglobin 29.6 pg (28.0-33.3); Mean Corpuscular Volume 95.4 fL (83.0-100.0); Mean Platelet Volume 9.5 fL (9.4-12.4); Platelet Count 322 K/mcL (140-400); Red Blood Count 3.48 M/mcL (3.82-4.97); Red Cell Distribution Width 15.3 % (11.5-14.5); White Blood Count 11.9 K/mcL (4.3-11.1)
[2020-09-16 05:25] LABS: Estimated Average Glucose 163 mg/dl; Hemoglobin A1C 7.3 %
[2020-09-16 05:30] LABS: INR 3.2; Prothrombin Time 35.4 Seconds (9.4-12.1)
[2020-09-16 05:42] LABS: Alanine Aminotransferase 20 Units/L (7-52); Albumin 3.1 g/dL (3.5-5.7); Albumin/Globulin Ratio 0.8 (1.1-2.2); Alkaline Phosphatase 257 Units/L (34-104); Aspartate Amino Transferase 39 Units/L (13-39); BUN/Creatinine Ratio 17 (6-26); Bilirubin,Total 0.9 mg/dL (0.3-1.0); Blood Urea Nitrogen 18 mg/dL (8-23); Calcium 8.8 mg/dL (8.6-10.3); Carbon Dioxide 31 mEq/L (23-29); Chloride 99 mEq/L (98-107); Globulin 3.7 g/dL (2.4-3.5); Glucose 198 mg/dL (70-105); Osmolality,Calculated 295 (280-300); Potassium 3.7 mEq/L (3.5-5.1); Sodium 139 mEq/L (136-145); Total Protein 6.8 g/dL (6.4-8.9); eGFR For African Americans > 60 (> 60); eGFR For Non-African Americans 52 (> 60)
[2020-09-16] MEDS: OXcarbazepine 150 MG TABLET PO SCH ×2 (09:16→22:31)
[2020-09-16] MEDS: Insulin LISPRO 300 UNITS/3 ML VIAL SUBQ SCH ×4 (09:16→22:30)
[2020-09-16] MEDS: Aspirin Enteric Coated 81 MG Tablet PO SCH (09:17)
[2020-09-16] MEDS: DilTIAZem CD (24hr) 180 MG CAP.ER.24H PO SCH (09:17)
[2020-09-16] MEDS: Metoprolol XL (24 HR) Succ 50 MG TAB.ER.24H PO SCH (09:17)
[2020-09-16] MEDS: Bumetanide 1 MG TABLET PO SCH ×2 (09:17→18:31)
[2020-09-16] MEDS: Nystatin POWDER 30 GM BOTTLE TP SCH ×2 (09:24→22:35)
[2020-09-16] MEDS ORDERED: Warfarin 0.5 MG, Warfarin 1 MG PO ONE (18:00)
[2020-09-16] MEDS: cefTRIAXone 1,000 MG in Water for inj. (sterile) 10 ML IVP SCH (18:31)
[2020-09-16] MEDS: Melatonin 3 MG TABLET PO PRN (22:34)
[2020-09-16] MEDS: *HR* HYDROcodone/Acet 5/325 mg TABLET PO PRN (22:34)
[2020-09-17] MEDS: Budesonide/Formoterol 160/4.5 1 PUFF INH IH SCH ×3 (01:30→20:39)
[2020-09-17 03:31] LABS: Hematocrit 32.8 % (35.3-44.9); Hemoglobin 10.1 g/dL (11.5-15.4); Mean Corpuscular HGB Conc 30.8 g/dL (31.6-35.5); Mean Corpuscular Volume 94.3 fL (83.0-100.0); Mean Platelet Volume 9.6 fL (9.4-12.4); Platelet Count 330 K/mcL (140-400); Red Blood Count 3.48 M/mcL (3.82-4.97); Red Cell Distribution Width 15.3 % (11.5-14.5)
[2020-09-17 03:41] LABS: INR 2.7; Prothrombin Time 30.5 Seconds (9.4-12.1)
[2020-09-17 03:48] LABS: Alanine Aminotransferase 18 Units/L (7-52); Albumin 3.2 g/dL (3.5-5.7); Albumin/Globulin Ratio 0.9 (1.1-2.2); Alkaline Phosphatase 234 Units/L (34-104); Aspartate Amino Transferase 35 Units/L (13-39); BUN/Creatinine Ratio 18 (6-26); Bilirubin,Total 0.9 mg/dL (0.3-1.0); Blood Urea Nitrogen 18 mg/dL (8-23); Calcium 8.4 mg/dL (8.6-10.3); Carbon Dioxide 36 mEq/L (23-29); Chloride 98 mEq/L (98-107); Globulin 3.6 g/dL (2.4-3.5); Glucose 157 mg/dL (70-105); Osmolality,Calculated 295 (280-300); Potassium 3.5 mEq/L (3.5-5.1); Sodium 140 mEq/L (136-145); Total Protein 6.8 g/dL (6.4-8.9); eGFR For African Americans > 60 (> 60); eGFR For Non-African Americans 53 (> 60)
[2020-09-17] MEDS: Aspirin Enteric Coated 81 MG Tablet PO SCH (08:02)
[2020-09-17] MEDS: Metoprolol XL (24 HR) Succ 50 MG TAB.ER.24H PO SCH (08:03)
[2020-09-17] MEDS: Bumetanide 1 MG TABLET PO SCH ×2 (08:03→16:23)
[2020-09-17] MEDS: DilTIAZem CD (24hr) 180 MG CAP.ER.24H PO SCH (08:03)
[2020-09-17] MEDS: OXcarbazepine 150 MG TABLET PO SCH ×2 (08:03→22:00)
[2020-09-17] MEDS: Insulin LISPRO 300 UNITS/3 ML VIAL SUBQ SCH ×4 (08:04→22:02)
[2020-09-17] MEDS: Nystatin POWDER 30 GM BOTTLE TP SCH ×2 (08:04→22:01)
[2020-09-17] MEDS: cefTRIAXone 1,000 MG in Water for inj. (sterile) 10 ML IVP SCH (16:22)
[2020-09-17] MEDS ORDERED: *HR* Warfarin 2.5 MG TABLET PO ONE (18:00)
[2020-09-17] MEDS: *HR* HYDROcodone/Acet 5/325 mg TABLET PO PRN (22:00)
[2020-09-17] MEDS: Melatonin 3 MG TABLET PO PRN (22:00)
[2020-09-18 05:32] LABS: Hematocrit 32.5 % (35.3-44.9); Hemoglobin 10.2 g/dL (11.5-15.4); Mean Corpuscular HGB Conc 31.4 g/dL (31.6-35.5); Mean Corpuscular Hemoglobin 29.1 pg (28.0-33.3); Mean Corpuscular Volume 92.9 fL (83.0-100.0); Mean Platelet Volume 9.3 fL (9.4-12.4); Platelet Count 303 K/mcL (140-400); Red Cell Distribution Width 15.3 % (11.5-14.5); White Blood Count 12.1 K/mcL (4.3-11.1)
[2020-09-18 05:46] LABS: Alanine Aminotransferase 21 Units/L (7-52); Albumin 3.2 g/dL (3.5-5.7); Albumin/Globulin Ratio 0.9 (1.1-2.2); Alkaline Phosphatase 305 Units/L (34-104); Aspartate Amino Transferase 38 Units/L (13-39); BUN/Creatinine Ratio 18 (6-26); Bilirubin,Total 1.6 mg/dL (0.3-1.0); Blood Urea Nitrogen 19 mg/dL (8-23); Calcium 8.3 mg/dL (8.6-10.3); Carbon Dioxide 33 mEq/L (23-29); Chloride 98 mEq/L (98-107); Globulin 3.5 g/dL (2.4-3.5); Glucose 185 mg/dL (70-105); Osmolality,Calculated 297 (280-300); Potassium 3.3 mEq/L (3.5-5.1); Sodium 140 mEq/L (136-145); Total Protein 6.7 g/dL (6.4-8.9); eGFR For African Americans > 60 (> 60); eGFR For Non-African Americans 52 (> 60)
[2020-09-18 05:50] LABS: INR 2.8; Prothrombin Time 31.4 Seconds (9.4-12.1)
[2020-09-18] MEDS: Budesonide/Formoterol 160/4.5 1 PUFF INH IH SCH ×2 (08:00→19:38)
[2020-09-18] MEDS: Insulin LISPRO 300 UNITS/3 ML VIAL SUBQ SCH ×4 (08:38→21:58)
[2020-09-18] MEDS: Aspirin Enteric Coated 81 MG Tablet PO SCH (08:39)
[2020-09-18] MEDS: DilTIAZem CD (24hr) 180 MG CAP.ER.24H PO SCH (08:39)
[2020-09-18] MEDS: OXcarbazepine 150 MG TABLET PO SCH ×2 (08:39→21:50)
[2020-09-18] MEDS: Nystatin POWDER 30 GM BOTTLE TP SCH ×2 (08:40→21:58)
[2020-09-18] MEDS: Bumetanide 1 MG TABLET PO SCH ×2 (08:40→17:15)
[2020-09-18] MEDS: Metoprolol XL (24 HR) Succ 50 MG TAB.ER.24H PO SCH (08:40)
[2020-09-18] MEDS: cefTRIAXone 1,000 MG in Water for inj. (sterile) 10 ML IVP SCH (17:15)
[2020-09-18] MEDS ORDERED: *HR* Warfarin 2.5 MG TABLET PO ONE (18:00)
[2020-09-18] MEDS: *HR* OxyCODONE Immed Rel 5 MG TABLET PO PRN (21:50)
[2020-09-18] MEDS: Melatonin 3 MG TABLET PO PRN (21:50)
[2020-09-19 05:59] LABS: Hematocrit 34.1 % (35.3-44.9); Hemoglobin 10.5 g/dL (11.5-15.4); Mean Corpuscular HGB Conc 30.8 g/dL (31.6-35.5); Mean Corpuscular Hemoglobin 28.8 pg (28.0-33.3); Mean Corpuscular Volume 93.7 fL (83.0-100.0); Mean Platelet Volume 9.6 fL (9.4-12.4); Platelet Count 345 K/mcL (140-400); Red Blood Count 3.64 M/mcL (3.82-4.97); Red Cell Distribution Width 15.4 % (11.5-14.5); White Blood Count 12.7 K/mcL (4.3-11.1)
[2020-09-19 06:06] LABS: INR 2.7; Prothrombin Time 30.4 Seconds (9.4-12.1)
[2020-09-19 06:12] LABS: Albumin 3.5 g/dL (3.5-5.7); Albumin/Globulin Ratio 0.9 (1.1-2.2); Bilirubin,Total 1.3 mg/dL (0.3-1.0); Calcium 8.6 mg/dL (8.6-10.3); Potassium 3.5 mEq/L (3.5-5.1); Total Protein 7.5 g/dL (6.4-8.9)
[2020-09-19] MEDS: Metoprolol XL (24 HR) Succ 50 MG TAB.ER.24H PO SCH (07:44)
[2020-09-19] MEDS: Bumetanide 1 MG TABLET PO SCH (07:44)
[2020-09-19] MEDS: Aspirin Enteric Coated 81 MG Tablet PO SCH (07:44)
[2020-09-19] MEDS: DilTIAZem CD (24hr) 180 MG CAP.ER.24H PO SCH (07:44)
[2020-09-19] MEDS: OXcarbazepine 150 MG TABLET PO SCH (07:45)
[2020-09-19] MEDS: Nystatin POWDER 30 GM BOTTLE TP SCH (07:45)
[2020-09-19] MEDS: Insulin LISPRO 300 UNITS/3 ML VIAL SUBQ SCH ×2 (07:45→13:03)
[2020-09-19] MEDS: Budesonide/Formoterol 160/4.5 1 PUFF INH IH SCH (08:23)
[2020-09-19 11:06] VITALS: BP 128/71
[2020-09-19] MEDS ORDERED: *HR* Warfarin 2.5 MG TABLET PO ONE (18:00)
== END 2020-09-19 16:27 ==
LOC: 3BNU 17:13 → EMEROOARM 17:13 → SUATTDRO 09-14 00:17 → 3BNU 09-14 00:55
PROVIDERS: ADMIT Internal Medicine; ATTEND Student in an Organized Health Care Education/Training Program

== ENCOUNTER 2020-12-16 10:57 | Observation (INO) ==
[2020-12-16 12:19] LABS: Bilirubin,Urine Negative (Negative); Blood,Urine Negative (Negative); Clarity,Urine Turbid (Clear); Color,Urine Yellow (Yellow); Glucose,Urine (UA) Normal (Normal); Ketones,Urine Negative (Negative); Leukocyte Esterase,Urine Negative (Negative); Mucus,Urine Few per lpf (None-Few); Nitrite,Urine Negative (Negative); PH,Urine 5.5 pH Units (5.0-8.0); Protein,Urine Trace mg/dL (Neg-Trace); RBC,Urine 0-3 per hpf (0-3); Specific Gravity,Urine 1.021 (1.010-1.025); Squamous Epithelial Cell,Urine Few per hpf (None-Few); Urobilinogen,Urine Normal (Normal)
[2020-12-16 12:19] LABS: Basophils % 0.3 %; Eosinophils # 0.2 K/mcL (0.0-0.6); Eosinophils % 2.1 %; Hematocrit 33.2 % (35.3-44.9); Hemoglobin 10.6 g/dL (11.5-15.4); Immature Granulocytes % 0.4 % (0-4); Lymphocytes # 1.5 K/mcL (0.6-4.6); Lymphocytes % 15.9 %; Mean Corpuscular HGB Conc 31.9 g/dL (31.6-35.5); Mean Corpuscular Hemoglobin 31.8 pg (28.0-33.3); Mean Corpuscular Volume 99.7 fL (83.0-100.0); Mean Platelet Volume 9.3 fL (9.4-12.4); Monocytes % 10.5 %; Neutrophils # 6.8 K/mcL (1.6-8.9); Platelet Count 217 K/mcL (140-400); Red Blood Count 3.33 M/mcL (3.82-4.97); Red Cell Distribution Width 16.7 % (11.5-14.5); Segmented Neutrophils % 70.8 %; White Blood Count 9.5 K/mcL (4.3-11.1)
[2020-12-16 12:29] LABS: INR 3.5; Prothrombin Time 39.4 Seconds (9.4-12.1)
[2020-12-16 12:32] LABS: Activated Partial Thrombo Time 48.4 Seconds (26.0-36.0)
[2020-12-16 12:40] LABS: Albumin 3.1 g/dL (3.5-5.7); Albumin/Globulin Ratio 0.8 (1.1-2.2); Bilirubin,Total 0.8 mg/dL (0.3-1.0); Calcium 8.4 mg/dL (8.6-10.3); Globulin 3.7 g/dL (2.4-3.5); Magnesium 1.8 mg/dL (1.6-2.6); Potassium 3.4 mEq/L (3.5-5.1); Total Protein 6.8 g/dL (6.4-8.9)
[2020-12-16 12:58] LABS: Thyroid Stimulating Hormone 2.068 mcIU/mL (0.340-5.600); Troponin I 0.04 ng/mL (< 0.04)
[2020-12-16] MEDS ORDERED: MOM Conc 10 ML UD.LIQ PO PRN (16:01)
[2020-12-16] MEDS ORDERED: Acetaminophen 325 MG TABLET PO PRN (16:01)
[2020-12-16] MEDS ORDERED: Dextrose Gel 15 GM/37.5 ML TUBE PO PRN ×2 (16:01)
[2020-12-16] MEDS ORDERED: D5% in Water 1,000 ML IVC PRN (16:01)
[2020-12-16] MEDS ORDERED: Mag Hydrox/Al Hydrox/Simeth 30 ML UDC PO PRN (16:01)
[2020-12-16] MEDS ORDERED: *HR* Dextrose 50 % in Water (Vial) 50 ML VIAL IVP PRN (16:01)
[2020-12-16] MEDS ORDERED: Ondansetron ODT 4 MG TAB.RAPDIS SL PRN (16:01)
[2020-12-16] MEDS ORDERED: Naloxone 0.4 MG/ML INJ IVP PRN (16:01)
[2020-12-16] MEDS ORDERED: Perflutren Lipid Microsphere 1.3 ML in 0.9 % Sodium Chloride 8.7 ML IVP PRN (16:04)
[2020-12-16] MEDS ORDERED: Ipratropium/Albuterol Neb 3 ML IH PRN (16:05)
[2020-12-16] MEDS ORDERED: Furosemide 40 MG/4 ML VIAL IVP ONE (16:36)
[2020-12-16 17:24] LABS: ABG Base Excess 4 mEq/L (-2 to 3); ABG HCO3 30 mEq/L (21-27); ABG Oxygen Saturation 92 % (95-98); ABG PCO2 51 mmHg (35-45); ABG PH 7.38 pH Units (7.32-7.45); ABG PO2 67 mmHg (85-104); ABG TCO2 32 mEq/L (20-26)
[2020-12-16] MEDS ORDERED: Warfarin perPT PO PRN (18:00)
[2020-12-16] MEDS: Insulin LISPRO 300 UNITS/3 ML VIAL SUBQ SCH ×2 (18:17→20:52)
[2020-12-16] MEDS: Insulin DETEMIR 100 UNIT/ML X5UNITS SUBQ SCH (20:52)
[2020-12-16] MEDS: Nystatin POWDER 30 GM BOTTLE TP SCH (23:40)
[2020-12-17 00:56] LABS: Hematocrit 32.8 % (35.3-44.9); Hemoglobin 10.6 g/dL (11.5-15.4); Mean Corpuscular HGB Conc 32.3 g/dL (31.6-35.5); Mean Corpuscular Hemoglobin 32.3 pg (28.0-33.3); Mean Platelet Volume 9.4 fL (9.4-12.4); Platelet Count 225 K/mcL (140-400); Red Blood Count 3.28 M/mcL (3.82-4.97); Red Cell Distribution Width 16.8 % (11.5-14.5); White Blood Count 10.3 K/mcL (4.3-11.1)
[2020-12-17 01:04] LABS: INR 3.6; Prothrombin Time 40.7 Seconds (9.4-12.1)
[2020-12-17 01:19] LABS: Calcium 8.3 mg/dL (8.6-10.3); Magnesium 1.9 mg/dL (1.6-2.6); Phosphorous 3.6 mg/dL (2.7-4.5)
[2020-12-17 01:24] LABS: Troponin I 0.06 ng/mL (< 0.04)
[2020-12-17] MEDS: Insulin LISPRO 300 UNITS/3 ML VIAL SUBQ SCH ×4 (08:11→20:15)
[2020-12-17] MEDS ORDERED: Furosemide 40 MG/4 ML VIAL IVP ONE ×2 (08:25→12:30)
[2020-12-17] MEDS: Nystatin POWDER 30 GM BOTTLE TP SCH ×2 (12:33→20:17)
[2020-12-17] MEDS: DilTIAZem CD (24hr) 180 MG CAP.ER.24H PO SCH (13:20)
[2020-12-17] MEDS: Albumin 25% 25gram/100mL 25 GM/100 ML IV.SOLN IVC SCH ×2 (15:01→16:51)
[2020-12-17 15:26] LABS: % Iron Saturation 18 % (15-50); Iron 41 mcg/dL (50-170); Transferrin 163 mg/dL (203-362)
[2020-12-17 15:39] LABS: Ferritin 179 ng/mL (10-120)
[2020-12-17] MEDS: Budesonide/Formoterol 160/4.5 1 PUFF INH IH SCH ×2 (15:46→19:50)
[2020-12-17] MEDS: Insulin DETEMIR 100 UNIT/ML X5UNITS SUBQ SCH (20:16)
[2020-12-18 02:46] LABS: Hematocrit 32.6 % (35.3-44.9); Hemoglobin 10.7 g/dL (11.5-15.4); Mean Corpuscular HGB Conc 32.8 g/dL (31.6-35.5); Mean Corpuscular Hemoglobin 32.6 pg (28.0-33.3); Mean Corpuscular Volume 99.4 fL (83.0-100.0); Mean Platelet Volume 9.3 fL (9.4-12.4); Platelet Count 240 K/mcL (140-400); Red Blood Count 3.28 M/mcL (3.82-4.97); Red Cell Distribution Width 16.9 % (11.5-14.5); White Blood Count 10.6 K/mcL (4.3-11.1)
[2020-12-18 02:56] LABS: INR 2.4; Prothrombin Time 27.6 Seconds (9.4-12.1)
[2020-12-18 02:58] LABS: Calcium 8.8 mg/dL (8.6-10.3)
[2020-12-18] MEDS: Budesonide/Formoterol 160/4.5 1 PUFF INH IH SCH ×2 (07:36→19:50)
[2020-12-18] MEDS: Insulin LISPRO 300 UNITS/3 ML VIAL SUBQ SCH ×4 (10:46→20:36)
[2020-12-18] MEDS: OCTREOTIDE ACETATE IM SCH ×2 (10:46→12:20)
[2020-12-18] MEDS: Aspirin Enteric Coated 81 MG Tablet PO SCH (10:57)
[2020-12-18] MEDS: DilTIAZem CD (24hr) 180 MG CAP.ER.24H PO SCH (10:57)
[2020-12-18] MEDS: Metoprolol XL (24 HR) Succ 50 MG TAB.ER.24H PO SCH (10:58)
[2020-12-18] MEDS: Nystatin POWDER 30 GM BOTTLE TP SCH ×2 (10:59→20:40)
[2020-12-18] MEDS ORDERED: Haloperidol Oral Conc 10 MG/5 ML UDC PO PRN (11:00)
[2020-12-18] MEDS ORDERED: VISINE TEARS DROPS 15 ML BOTH EYES PRN (11:09)
[2020-12-18] MEDS ORDERED: Albumin 25% 25gram/100mL 25 GM/100 ML IV.SOLN IVPB ONE ×2 (11:11→18:06)
[2020-12-18] MEDS ORDERED: Furosemide 40 MG/4 ML VIAL IVP ONE ×2 (11:20→18:07)
[2020-12-18] MEDS ORDERED: OCTREOTIDE 20 MG IM ONE (12:00)
[2020-12-18] MEDS: Albumin 25% 25gram/100mL 25 GM/100 ML IV.SOLN IVC SCH (12:44)
[2020-12-18] MEDS ORDERED: Artificial Tears SOLN 15 ML BOTTLE BOTH EYES PRN (17:30)
[2020-12-18] MEDS ORDERED: *HR* Warfarin 2.5 MG TABLET PO ONE (18:00)
[2020-12-18] MEDS: Insulin DETEMIR 100 UNIT/ML X5UNITS SUBQ SCH (20:35)
[2020-12-18] MEDS: Melatonin 3 MG TABLET PO PRN (22:35)
[2020-12-18] MEDS: cephALEXin 500 MG CAPSULE PO SCH (22:35)
[2020-12-19 06:34] LABS: Hematocrit 35.8 % (35.3-44.9); Hemoglobin 11.1 g/dL (11.5-15.4); Mean Corpuscular Hemoglobin 31.1 pg (28.0-33.3); Mean Corpuscular Volume 100.3 fL (83.0-100.0); Mean Platelet Volume 9.5 fL (9.4-12.4); Platelet Count 260 K/mcL (140-400); Red Blood Count 3.57 M/mcL (3.82-4.97); Red Cell Distribution Width 16.7 % (11.5-14.5)
[2020-12-19 06:48] LABS: Calcium 9.1 mg/dL (8.6-10.3)
[2020-12-19 06:49] LABS: INR 1.7; Prothrombin Time 19.1 Seconds (9.4-12.1)
[2020-12-19] MEDS: Budesonide/Formoterol 160/4.5 1 PUFF INH IH SCH ×2 (07:44→20:18)
[2020-12-19] MEDS: Insulin LISPRO 300 UNITS/3 ML VIAL SUBQ SCH ×4 (08:32→21:19)
[2020-12-19] MEDS: Aspirin Enteric Coated 81 MG Tablet PO SCH (08:33)
[2020-12-19] MEDS: Metoprolol XL (24 HR) Succ 50 MG TAB.ER.24H PO SCH (08:33)
[2020-12-19] MEDS: cephALEXin 500 MG CAPSULE PO SCH ×3 (08:33→21:19)
[2020-12-19] MEDS: DilTIAZem CD (24hr) 180 MG CAP.ER.24H PO SCH (08:33)
[2020-12-19] MEDS: Nystatin POWDER 30 GM BOTTLE TP SCH ×2 (08:34→21:21)
[2020-12-19] MEDS ORDERED: GI Cocktail 40 ML EACH PO ONE (11:45)
[2020-12-19] MEDS ORDERED: Furosemide 40 MG/4 ML VIAL IVP ONE (11:46)
[2020-12-19] MEDS ORDERED: *HR* Warfarin 3 MG TABLET PO ONE (18:00)
[2020-12-19] MEDS ORDERED: tiZANidine 4 MG TABLET PO ONE (21:00)
[2020-12-19] MEDS: Melatonin 3 MG TABLET PO PRN (21:19)
[2020-12-19] MEDS: Insulin DETEMIR 100 UNIT/ML X5UNITS SUBQ SCH (21:20)
[2020-12-20 03:42] LABS: Hematocrit 35.3 % (35.3-44.9); Hemoglobin 10.9 g/dL (11.5-15.4); Mean Corpuscular HGB Conc 30.9 g/dL (31.6-35.5); Mean Corpuscular Hemoglobin 31.1 pg (28.0-33.3); Mean Corpuscular Volume 100.6 fL (83.0-100.0); Mean Platelet Volume 9.4 fL (9.4-12.4); Platelet Count 260 K/mcL (140-400); Red Blood Count 3.51 M/mcL (3.82-4.97); Red Cell Distribution Width 16.8 % (11.5-14.5); White Blood Count 10.8 K/mcL (4.3-11.1)
[2020-12-20 03:52] LABS: INR 1.7; Prothrombin Time 19.3 Seconds (9.4-12.1)
[2020-12-20 04:00] LABS: Calcium 9.1 mg/dL (8.6-10.3); Potassium 3.8 mEq/L (3.5-5.1)
[2020-12-20] MEDS: cephALEXin 500 MG CAPSULE PO SCH ×2 (07:29→16:06)
[2020-12-20] MEDS: Metoprolol XL (24 HR) Succ 50 MG TAB.ER.24H PO SCH (07:29)
[2020-12-20] MEDS: Aspirin Enteric Coated 81 MG Tablet PO SCH (07:29)
[2020-12-20] MEDS: Bumetanide 1 MG TABLET PO SCH ×2 (07:30→16:06)
[2020-12-20] MEDS: DilTIAZem CD (24hr) 180 MG CAP.ER.24H PO SCH (07:30)
[2020-12-20] MEDS: Insulin LISPRO 300 UNITS/3 ML VIAL SUBQ SCH ×2 (07:32→11:57)
[2020-12-20 10:50] VITALS: BP 131/75; PULSE 71; TEMP 98.4; O2SAT 97
[2020-12-20] MEDS: Budesonide/Formoterol 160/4.5 1 PUFF INH IH SCH (10:52)
[2020-12-20] MEDS: Nystatin POWDER 30 GM BOTTLE TP SCH (11:57)
[2020-12-20] MEDS ORDERED: *HR* Warfarin 3 MG TABLET PO ONE (18:00)
== END 2020-12-20 16:53 | disposition other institution (70) ==
LOC: 3BNU 10:57 → EMEROOARM 10:57 → SUATTDRO 16:13 → 3BNU 17:41
PROVIDERS: ADMIT Pharmacist; ATTEND Internal Medicine

== ENCOUNTER 2021-01-30 11:05 | Inpatient (IN) ==
[2021-01-30 11:59] LABS: Basophils # 0.1 K/mcL (0.0-0.2); Basophils % 0.4 %; Eosinophils # 0.1 K/mcL (0.0-0.6); Eosinophils % 0.5 %; Hematocrit 35.4 % (35.3-44.9); Hemoglobin 11.2 g/dL (11.5-15.4); Immature Granulocytes % 0.5 % (0-4); Lymphocytes # 2.7 K/mcL (0.6-4.6); Lymphocytes % 20.3 %; Mean Corpuscular HGB Conc 31.6 g/dL (31.6-35.5); Mean Corpuscular Volume 101.1 fL (83.0-100.0); Monocytes # 1.7 K/mcL (0.0-1.3); Monocytes % 13.1 %; Neutrophils # 8.6 K/mcL (1.6-8.9); Platelet Count 202 K/mcL (140-400); Red Cell Distribution Width 16.1 % (11.5-14.5); Segmented Neutrophils % 65.2 %; White Blood Count 13.1 K/mcL (4.3-11.1)
[2021-01-30 13:21] LABS: Albumin 3.5 g/dL (3.5-5.7); Albumin/Globulin Ratio 0.8 (1.1-2.2); Bilirubin,Direct 0.1 mg/dL (0.0-0.2); Bilirubin,Total 1.1 mg/dL (0.3-1.0); Calcium 8.8 mg/dL (8.6-10.3); Globulin 4.3 g/dL (2.4-3.5); Potassium 5.3 mEq/L (3.5-5.1); Thyroid Stimulating Hormone 2.227 mcIU/mL (0.340-5.600); Total Protein 7.8 g/dL (6.4-8.9); Troponin I 0.03 ng/mL (< 0.04)
[2021-01-30 13:28] LABS: INR 2.6; Prothrombin Time 29.3 Seconds (9.4-12.1)
[2021-01-30 13:31] LABS: Activated Partial Thrombo Time 44.3 Seconds (26.0-36.0)
[2021-01-30] MEDS ORDERED: Lactulose Oral Soln 20 GM/30 ML UDC PO ONE (13:36)
[2021-01-30] MEDS ORDERED: 0.9 % Sodium Chloride 1,000 ML IVC SCH (13:45)
[2021-01-30] MEDS ORDERED: Ondansetron 4 MG/2 ML VIAL IVP PRN (15:11)
[2021-01-30] MEDS ORDERED: Acetaminophen 325 MG TABLET PO PRN (15:11)
[2021-01-30] MEDS ORDERED: Naloxone 0.4 MG/ML INJ IVP PRN (15:11)
[2021-01-30] MEDS ORDERED: *HR* HYDROcodone/Acet 5/325 mg TABLET PO PRN (15:11)
[2021-01-30] MEDS ORDERED: SODIUM ZIRCONIUM CYCLOSILICATE 5 GM POWD.PACK PO ONE (17:27)
[2021-01-30] MEDS ORDERED: Dextrose Gel 15 GM/37.5 ML TUBE PO PRN ×2 (17:45)
[2021-01-30] MEDS ORDERED: *HR* Dextrose 50 % in Water (Vial) 50 ML VIAL IVP PRN (17:45)
[2021-01-30] MEDS ORDERED: D5% in Water 1,000 ML IVC PRN (17:45)
[2021-01-30] MEDS ORDERED: Warfarin perPT PO PRN (18:00)
[2021-01-30 18:52] LABS: VBG HCO3 28 mEq/L (21-27); VBG PCO2 42 mmHg (41-51); VBG PH 7.42 pH Units (7.32-7.42); VBG PO2 93 mmHg (25-50)
[2021-01-30 19:39] LABS: Chol/HDL Ratio 3.1 (0-4.9)
[2021-01-30] MEDS: Furosemide 20 MG/2 ML VIAL IVP SCH ×2 (19:56→20:58)
[2021-01-30] MEDS: Budesonide/Formoterol 160/4.5 1 PUFF INH IH SCH (20:08)
[2021-01-30 20:12] LABS: Estimated Average Glucose 171 mg/dl; Hemoglobin A1C 7.6 %
[2021-01-30] MEDS: Lactulose Oral Soln 20 GM/30 ML UDC PO SCH (20:57)
[2021-01-30] MEDS: OXcarbazepine 150 MG TABLET PO SCH (20:57)
[2021-01-30] MEDS: Chlorhexidine Rinse 15 ML MOUTHWASH MM SCH (20:57)
[2021-01-30] MEDS: Albumin 25% 25gram/100mL 25 GM/100 ML IV.SOLN IVPB SCH (20:58)
[2021-01-30] MEDS: Insulin DETEMIR 100 UNIT/ML X5UNITS SUBQ SCH (21:27)
[2021-01-31 02:06] LABS: Basophils % 0.4 %; Eosinophils % 0.4 %; Hematocrit 32.9 % (35.3-44.9); Hemoglobin 10.6 g/dL (11.5-15.4); Immature Granulocytes % 0.6 % (0-4); Lymphocytes # 1.7 K/mcL (0.6-4.6); Lymphocytes % 16.7 %; Mean Corpuscular HGB Conc 32.2 g/dL (31.6-35.5); Mean Corpuscular Hemoglobin 31.7 pg (28.0-33.3); Mean Corpuscular Volume 98.5 fL (83.0-100.0); Mean Platelet Volume 9.2 fL (9.4-12.4); Monocytes # 1.2 K/mcL (0.0-1.3); Monocytes % 11.9 %; Neutrophils # 7.1 K/mcL (1.6-8.9); Platelet Count 194 K/mcL (140-400); Red Blood Count 3.34 M/mcL (3.82-4.97); White Blood Count 10.1 K/mcL (4.3-11.1)
[2021-01-31 02:16] LABS: Prothrombin Time 33.2 Seconds (9.4-12.1)
[2021-01-31 02:26] LABS: Albumin 3.3 g/dL (3.5-5.7); Albumin/Globulin Ratio 0.9 (1.1-2.2); Bilirubin,Total 1.1 mg/dL (0.3-1.0); Calcium 8.4 mg/dL (8.6-10.3); Globulin 3.6 g/dL (2.4-3.5); Magnesium 2.1 mg/dL (1.6-2.6); Phosphorous 4.4 mg/dL (2.7-4.5); Total Protein 6.9 g/dL (6.4-8.9)
[2021-01-31 02:57] LABS: Vitamin B12 > 1500 pg/mL (250-1100)
[2021-01-31] MEDS: Albumin 25% 25gram/100mL 25 GM/100 ML IV.SOLN IVPB SCH ×2 (05:17→17:52)
[2021-01-31] MEDS: Budesonide/Formoterol 160/4.5 1 PUFF INH IH SCH ×2 (07:36→22:50)
[2021-01-31] MEDS: Insulin LISPRO 300 UNITS/3 ML VIAL SUBQ SCH ×6 (08:25→17:00)
[2021-01-31] MEDS ORDERED: methylPREDNISolone 125 MG/2 ML VIAL IVP ONE (08:26)
[2021-01-31] MEDS ORDERED: *HR* LORazepam 0.5 MG TABLET PO PRN (08:30)
[2021-01-31] MEDS: Lactulose Oral Soln 20 GM/30 ML UDC PO SCH ×3 (08:36→21:30)
[2021-01-31] MEDS: DilTIAZem CD (24hr) 180 MG CAP.ER.24H PO SCH (08:37)
[2021-01-31] MEDS: OXcarbazepine 150 MG TABLET PO SCH ×2 (08:38→21:30)
[2021-01-31] MEDS: Aspirin Enteric Coated 81 MG Tablet PO SCH (08:38)
[2021-01-31] MEDS: Chlorhexidine Rinse 15 ML MOUTHWASH MM SCH ×2 (08:38→21:30)
[2021-01-31] MEDS: Lactobacillus 1 EACH CAP.SPRINK PO SCH (08:38)
[2021-01-31] MEDS: Metoprolol XL (24 HR) Succ 50 MG TAB.ER.24H PO SCH (08:38)
[2021-01-31] MEDS: Furosemide 20 MG/2 ML VIAL IVP SCH ×2 (08:39→21:30)
[2021-01-31 09:44] LABS: Adenovirus Not Detected (Not Detect); Bordetella Pertussis Not Detected (Not Detect); Chlamydophila pneumoniae Not Detected (Not Detect); Coronavirus 229E Not Detected (Not Detect); Coronavirus HKU1 Not Detected (Not Detect); Coronavirus NL63 Not Detected (Not Detect); Coronavirus OC43 Not Detected (Not Detect); Human Metapneumovirus Not Detected (Not Detect); Human Rhinovirus/Enterovirus Not Detected (Not Detect); Influenza A Subtype 2009 H1 Not Detected (Not Detect); Influenza B Not Detected (Not Detect); Mycoplasma pneumoniae Not Detected (Not Detect); Parainfluenza Virus 1 Not Detected (Not Detect); Parainfluenza Virus 2 Not Detected (Not Detect); Parainfluenza Virus 3 Not Detected (Not Detect); Parainfluenza Virus 4 Not Detected (Not Detect); Respiratory Syncytial Virus Not Detected (Not Detect); SARS-CoV-2 Not Detected (Not Detect)
[2021-01-31] MEDS: Ipratropium/Albuterol Neb 3 ML IH SCH ×4 (09:52→22:27)
[2021-01-31 12:37] LABS: Bilirubin,Urine Negative (Negative); Blood,Urine Negative (Negative); Clarity,Urine Clear (Clear); Color,Urine Colorless (Yellow); Glucose,Urine (UA) Normal (Normal); Ketones,Urine Negative (Negative); Leukocyte Esterase,Urine Negative (Negative); Nitrite,Urine Negative (Negative); PH,Urine 6.5 pH Units (5.0-8.0); Protein,Urine Negative (Neg-Trace); Specific Gravity,Urine 1.005 (1.010-1.025); Urobilinogen,Urine Normal (Normal)
[2021-01-31 12:49] LABS: Amphetamine Screen,Urine Negative ng/mL (Cutoff=1000); Barbiturate Screen,Urine Negative ng/mL (Cutoff=200); Benzodiazepines Screen,Urine Negative ng/mL (Cutoff=200); Cannabinoid Screen,Urine Negative ng/mL (Cutoff = 50); Cocaine Screen,Urine Negative ng/mL (Cutoff= 300); Opiate Screen,Urine Negative ng/mL (Cutoff=300); Phencyclidine Screen,Urine Negative ng/mL (Cutoff=25)
[2021-01-31] MEDS: MethylPREDNISolone 40 MG/ML VIAL IVP SCH ×3 (14:03→23:56)
[2021-01-31] MEDS: Insulin DETEMIR 100 UNIT/ML X5UNITS SUBQ SCH (21:38)
[2021-01-31] MEDS: Melatonin 3 MG TABLET PO PRN (23:56)
[2021-02-01] MEDS: Ipratropium/Albuterol Neb 3 ML IH SCH ×6 (01:06→19:40)
[2021-02-01 03:03] LABS: Basophils % 0.1 %; Hematocrit 32.9 % (35.3-44.9); Hemoglobin 10.7 g/dL (11.5-15.4); Lymphocytes % 9.8 %; Mean Corpuscular HGB Conc 32.5 g/dL (31.6-35.5); Mean Corpuscular Volume 98.5 fL (83.0-100.0); Mean Platelet Volume 9.4 fL (9.4-12.4); Monocytes # 0.5 K/mcL (0.0-1.3); Monocytes % 4.7 %; Neutrophils # 8.9 K/mcL (1.6-8.9); Platelet Count 207 K/mcL (140-400); Red Blood Count 3.34 M/mcL (3.82-4.97); Red Cell Distribution Width 16.1 % (11.5-14.5); Segmented Neutrophils % 84.4 %; White Blood Count 10.5 K/mcL (4.3-11.1)
[2021-02-01 03:10] LABS: INR 2.8; Prothrombin Time 31.2 Seconds (9.4-12.1)
[2021-02-01 03:20] LABS: Albumin 3.6 g/dL (3.5-5.7); Albumin/Globulin Ratio 0.9 (1.1-2.2); Calcium 8.6 mg/dL (8.6-10.3); Globulin 3.8 g/dL (2.4-3.5); Magnesium 2.2 mg/dL (1.6-2.6); Phosphorous 4.1 mg/dL (2.7-4.5); Potassium 4.1 mEq/L (3.5-5.1); Total Protein 7.4 g/dL (6.4-8.9)
[2021-02-01] MEDS: Albumin 25% 25gram/100mL 25 GM/100 ML IV.SOLN IVPB SCH ×2 (05:16→17:16)
[2021-02-01] MEDS: Budesonide/Formoterol 160/4.5 1 PUFF INH IH SCH ×2 (07:20→19:40)
[2021-02-01] MEDS: Furosemide 20 MG/2 ML VIAL IVP SCH ×2 (08:14→19:51)
[2021-02-01] MEDS: Chlorhexidine Rinse 15 ML MOUTHWASH MM SCH ×2 (08:15→19:51)
[2021-02-01] MEDS: MethylPREDNISolone 40 MG/ML VIAL IVP SCH ×2 (08:15→17:16)
[2021-02-01] MEDS: Insulin LISPRO 300 UNITS/3 ML VIAL SUBQ SCH ×7 (08:15→19:52)
[2021-02-01] MEDS: DilTIAZem CD (24hr) 180 MG CAP.ER.24H PO SCH (08:17)
[2021-02-01] MEDS: OXcarbazepine 150 MG TABLET PO SCH ×2 (08:17→19:51)
[2021-02-01] MEDS: Metoprolol XL (24 HR) Succ 50 MG TAB.ER.24H PO SCH (08:19)
[2021-02-01] MEDS: Aspirin Enteric Coated 81 MG Tablet PO SCH (08:20)
[2021-02-01] MEDS: Lactobacillus 1 EACH CAP.SPRINK PO SCH (08:20)
[2021-02-01] MEDS: Lactulose Oral Soln 20 GM/30 ML UDC PO SCH ×3 (09:18→19:51)
[2021-02-01] MEDS: Artificial Tears SOLN 15 ML BOTTLE BOTH EYES SCH ×3 (12:40→19:51)
[2021-02-01] MEDS ORDERED: Insulin Human Regular 10 UNIT in 0.9 % Sodium Chloride 10 ML IV ONE (17:08)
[2021-02-01] MEDS ORDERED: Warfarin 1 MG, Warfarin 0.5 MG PO ONE (18:00)
[2021-02-01] MEDS ORDERED: Insulin DETEMIR 100 UNIT/ML X5UNITS SUBQ SCH (21:00)
[2021-02-02] MEDS: MethylPREDNISolone 40 MG/ML VIAL IVP SCH ×2 (00:01→08:51)
[2021-02-02] MEDS: Melatonin 3 MG TABLET PO PRN (00:02)
[2021-02-02] MEDS: Ipratropium/Albuterol Neb 3 ML IH SCH ×6 (00:06→19:54)
[2021-02-02 01:15] LABS: Basophils % 0.1 %; Hematocrit 32.9 % (35.3-44.9); Hemoglobin 10.4 g/dL (11.5-15.4); Immature Granulocytes % 1.2 % (0-4); Lymphocytes % 6.7 %; Mean Corpuscular HGB Conc 31.6 g/dL (31.6-35.5); Mean Corpuscular Hemoglobin 31.8 pg (28.0-33.3); Mean Corpuscular Volume 100.6 fL (83.0-100.0); Monocytes # 1.1 K/mcL (0.0-1.3); Monocytes % 7.2 %; Neutrophils # 12.5 K/mcL (1.6-8.9); Platelet Count 210 K/mcL (140-400); Red Blood Count 3.27 M/mcL (3.82-4.97); Red Cell Distribution Width 16.4 % (11.5-14.5); Segmented Neutrophils % 84.8 %; White Blood Count 14.7 K/mcL (4.3-11.1)
[2021-02-02 01:23] LABS: INR 2.3; Prothrombin Time 25.5 Seconds (9.4-12.1)
[2021-02-02 01:39] LABS: Albumin 4.2 g/dL (3.5-5.7); Albumin/Globulin Ratio 1.3 (1.1-2.2); Bilirubin,Total 0.8 mg/dL (0.3-1.0); Calcium 8.8 mg/dL (8.6-10.3); Globulin 3.2 g/dL (2.4-3.5); Magnesium 2.2 mg/dL (1.6-2.6); Phosphorous 3.7 mg/dL (2.7-4.5); Potassium 3.9 mEq/L (3.5-5.1); Total Protein 7.4 g/dL (6.4-8.9)
[2021-02-02] MEDS ORDERED: Insulin Human Regular 10 UNIT in 0.9 % Sodium Chloride 10 ML IV ONE ×3 (02:29→11:17)
[2021-02-02] MEDS ORDERED: Insulin LISPRO 300 UNITS/3 ML VIAL SUBQ SCH (08:00)
[2021-02-02] MEDS: Budesonide/Formoterol 160/4.5 1 PUFF INH IH SCH ×2 (08:35→19:54)
[2021-02-02] MEDS: Insulin DETEMIR 100 UNIT/ML X5UNITS SUBQ SCH ×2 (08:50→20:28)
[2021-02-02] MEDS: Chlorhexidine Rinse 15 ML MOUTHWASH MM SCH ×2 (08:51→20:27)
[2021-02-02] MEDS: Lactulose Oral Soln 20 GM/30 ML UDC PO SCH ×3 (08:51→20:27)
[2021-02-02] MEDS: Aspirin Enteric Coated 81 MG Tablet PO SCH (08:51)
[2021-02-02] MEDS: Furosemide 20 MG/2 ML VIAL IVP SCH (08:51)
[2021-02-02] MEDS: DilTIAZem CD (24hr) 180 MG CAP.ER.24H PO SCH (08:52)
[2021-02-02] MEDS: Lactobacillus 1 EACH CAP.SPRINK PO SCH (08:52)
[2021-02-02] MEDS: OXcarbazepine 150 MG TABLET PO SCH ×2 (08:53→20:27)
[2021-02-02] MEDS: Metoprolol XL (24 HR) Succ 50 MG TAB.ER.24H PO SCH (08:53)
[2021-02-02] MEDS: Artificial Tears SOLN 15 ML BOTTLE BOTH EYES SCH ×4 (08:54→20:29)
[2021-02-02] MEDS: Insulin LISPRO 300 UNITS/3 ML VIAL SUBQ SCH ×7 (08:54→20:28)
[2021-02-02] MEDS ORDERED: Insulin LISPRO 300 UNITS/3 ML VIAL SUBQ ONE (11:20)
[2021-02-02] MEDS: Gabapentin 300 MG CAPSULE PO SCH (15:39)
[2021-02-02] MEDS ORDERED: *HR* Warfarin 2 MG TABLET PO ONE (18:00)
[2021-02-02] MEDS ORDERED: Gabapentin 300 MG CAPSULE PO SCH (21:00)
[2021-02-03] MEDS: Ipratropium/Albuterol Neb 3 ML IH SCH ×4 (00:51→11:26)
[2021-02-03 02:57] LABS: Basophils % 0.2 %; Hematocrit 35.4 % (35.3-44.9); Hemoglobin 11.1 g/dL (11.5-15.4); Immature Granulocytes % 1.5 % (0-4); Lymphocytes # 1.5 K/mcL (0.6-4.6); Lymphocytes % 11.1 %; Mean Corpuscular HGB Conc 31.4 g/dL (31.6-35.5); Mean Corpuscular Hemoglobin 31.7 pg (28.0-33.3); Mean Corpuscular Volume 101.1 fL (83.0-100.0); Mean Platelet Volume 9.5 fL (9.4-12.4); Monocytes # 1.6 K/mcL (0.0-1.3); Monocytes % 11.6 %; Neutrophils # 10.3 K/mcL (1.6-8.9); Nucleated Red Blood Cells 0.1 /100 WBC (0); Platelet Count 239 K/mcL (140-400); Red Cell Distribution Width 16.8 % (11.5-14.5); Segmented Neutrophils % 75.6 %; White Blood Count 13.6 K/mcL (4.3-11.1)
[2021-02-03 03:05] LABS: INR 2.4; Prothrombin Time 26.6 Seconds (9.4-12.1)
[2021-02-03 03:14] LABS: Albumin 3.9 g/dL (3.5-5.7); Albumin/Globulin Ratio 1.1 (1.1-2.2); Bilirubin,Total 0.8 mg/dL (0.3-1.0); Calcium 8.8 mg/dL (8.6-10.3); Globulin 3.6 g/dL (2.4-3.5); Phosphorous 2.8 mg/dL (2.7-4.5); Potassium 3.2 mEq/L (3.5-5.1); Total Protein 7.5 g/dL (6.4-8.9)
[2021-02-03] MEDS: Budesonide/Formoterol 160/4.5 1 PUFF INH IH SCH (07:25)
[2021-02-03 08:13] VITALS: BP 156/75; PULSE 69; TEMP 98.9
[2021-02-03] MEDS: Chlorhexidine Rinse 15 ML MOUTHWASH MM SCH (08:27)
[2021-02-03] MEDS: Lactulose Oral Soln 20 GM/30 ML UDC PO SCH (08:27)
[2021-02-03] MEDS: Insulin LISPRO 300 UNITS/3 ML VIAL SUBQ SCH ×3 (08:27→11:59)
[2021-02-03] MEDS: Aspirin Enteric Coated 81 MG Tablet PO SCH (08:28)
[2021-02-03] MEDS: Gabapentin 300 MG CAPSULE PO SCH (08:28)
[2021-02-03] MEDS: OXcarbazepine 150 MG TABLET PO SCH (08:28)
[2021-02-03] MEDS: DilTIAZem CD (24hr) 180 MG CAP.ER.24H PO SCH (08:28)
[2021-02-03] MEDS: Lactobacillus 1 EACH CAP.SPRINK PO SCH (08:29)
[2021-02-03] MEDS: Artificial Tears SOLN 15 ML BOTTLE BOTH EYES SCH (08:29)
[2021-02-03] MEDS: Insulin DETEMIR 100 UNIT/ML X5UNITS SUBQ SCH (08:33)
[2021-02-03] MEDS ORDERED: predniSONE 20 MG TABLET PO SCH (09:00)
[2021-02-03] MEDS ORDERED: Metoprolol XL (24 HR) Succ 50 MG TAB.ER.24H PO SCH (09:00)
[2021-02-03] MEDS ORDERED: Furosemide 40 MG TABLET PO SCH (09:00)
[2021-02-03] MEDS ORDERED: Spironolactone 25 MG TABLET PO SCH (09:00)
[2021-02-03 11:53] VITALS: O2SAT 93
[2021-02-03] MEDS ORDERED: Warfarin 1 MG, Warfarin 0.5 MG PO ONE (18:00)
== END 2021-02-03 11:55 | disposition home health service (06) | DRG 441 ==
LOC: EMEROOARM 11:05 → 3NENU 11:05 → SUATTDRO 14:59 → 3NENU 17:27 → 3BNU 01-31 14:38
PROVIDERS: ADMIT Internal Medicine; ATTEND Internal Medicine

== ENCOUNTER 2021-02-17 03:02 | Observation (INO) ==
[2021-02-17] MEDS ORDERED: Lactulose Oral Soln 20 GM/30 ML UDC PO ONE (03:40)
[2021-02-17 03:56] LABS: VBG HCO3 33 mEq/L (21-27); VBG PCO2 62 mmHg (41-51); VBG PH 7.34 pH Units (7.32-7.42); VBG PO2 38 mmHg (25-50)
[2021-02-17 03:57] LABS: Basophils # 0.1 K/mcL (0.0-0.2); Basophils % 0.5 %; Eosinophils # 0.1 K/mcL (0.0-0.6); Eosinophils % 0.5 %; Hematocrit 33.6 % (35.3-44.9); Hemoglobin 10.6 g/dL (11.5-15.4); Immature Granulocytes % 0.5 % (0-4); Lymphocytes # 1.5 K/mcL (0.6-4.6); Mean Corpuscular HGB Conc 31.5 g/dL (31.6-35.5); Mean Corpuscular Volume 101.5 fL (83.0-100.0); Mean Platelet Volume 10.3 fL (9.4-12.4); Monocytes # 1.3 K/mcL (0.0-1.3); Nucleated Red Blood Cells 0.2 /100 WBC (0); Platelet Count 242 K/mcL (140-400); Red Blood Count 3.31 M/mcL (3.82-4.97); Red Cell Distribution Width 16.6 % (11.5-14.5); Segmented Neutrophils % 72.5 %
[2021-02-17 04:10] LABS: INR 2.3
[2021-02-17 04:13] LABS: Activated Partial Thrombo Time 41.7 Seconds (26.0-36.0)
[2021-02-17 04:21] LABS: Alanine Aminotransferase 54 Units/L (7-52); Albumin 3.4 g/dL (3.5-5.7); Alkaline Phosphatase 308 Units/L (34-104); Aspartate Amino Transferase 41 Units/L (13-39); BUN/Creatinine Ratio 21 (6-26); Bilirubin,Direct 0.7 mg/dL (0.0-0.2); Bilirubin,Indirect 0.7 mg/dL (0.0-1.0); Bilirubin,Total 1.4 mg/dL (0.3-1.0); Blood Urea Nitrogen 34 mg/dL (8-23); Calcium 8.6 mg/dL (8.6-10.3); Carbon Dioxide 31 mEq/L (23-29); Chloride 96 mEq/L (98-107); Creatine Kinase 85 Units/L (30-223); Ethanol < 10 mg/dL (Less than 10); Globulin 3.3 g/dL (2.4-3.5); Glucose 347 mg/dL (70-105); Osmolality,Calculated 303 (280-300); Sodium 136 mEq/L (136-145); Total Protein 6.7 g/dL (6.4-8.9); Troponin I 0.06 ng/mL (< 0.04); eGFR For African Americans 37 (> 60); eGFR For Non-African Americans 30 (> 60)
[2021-02-17 04:27] LABS: Bacteria,Urine Few per hpf (None-Few); Bilirubin,Urine Negative (Negative); Blood,Urine Trace (Negative); Clarity,Urine Ex.Turbid (Clear); Color,Urine Yellow (Yellow); Glucose,Urine (UA) 100 mg/dL (Normal); Hyaline Casts,Urine Few per lpf (None Seen); Ketones,Urine Negative (Negative); Leukocyte Esterase,Urine Large (Negative); Nitrite,Urine Positive (Negative); Protein,Urine Trace mg/dL (Neg-Trace); Specific Gravity,Urine 1.012 (1.010-1.025); Squamous Epithelial Cell,Urine Few per hpf (None-Few); Urobilinogen,Urine Normal (Normal); WBC,Urine TNTC per hpf (0-3)
[2021-02-17] MEDS ORDERED: 0.9 % Sodium Chloride 500 ML IVC ONE (04:27)
[2021-02-17] MEDS ORDERED: cefTRIAXone 1,000 MG in Water for inj. (sterile) 10 ML IVP ONE (04:33)
[2021-02-17 04:37] LABS: Amphetamine Screen,Urine Negative ng/mL (Cutoff=1000); Barbiturate Screen,Urine Negative ng/mL (Cutoff=200); Benzodiazepines Screen,Urine Negative ng/mL (Cutoff=200); Cannabinoid Screen,Urine Negative ng/mL (Cutoff = 50); Cocaine Screen,Urine Negative ng/mL (Cutoff= 300); Opiate Screen,Urine Negative ng/mL (Cutoff=300); Phencyclidine Screen,Urine Negative ng/mL (Cutoff=25)
[2021-02-17] MEDS ORDERED: Ondansetron 4 MG/2 ML VIAL IVP PRN (08:04)
[2021-02-17] MEDS ORDERED: Naloxone 0.4 MG/ML INJ IVP PRN (08:04)
[2021-02-17] MEDS ORDERED: Dextrose Gel 15 GM/37.5 ML TUBE PO PRN ×2 (08:07)
[2021-02-17] MEDS ORDERED: D5% in Water 1,000 ML IVC PRN (08:07)
[2021-02-17] MEDS ORDERED: *HR* Dextrose 50 % in Water (Syg) 50 ML SYRINGE IVP PRN (08:07)
[2021-02-17] MEDS ORDERED: 0.9 % Sodium Chloride 1,000 ML IVC SCH (08:15)
[2021-02-17] MEDS ORDERED: Lactulose Oral Soln 20 GM/30 ML UDC PO SCH (09:00)
[2021-02-17] MEDS: Insulin LISPRO 300 UNITS/3 ML VIAL SUBQ SCH ×2 (11:23→18:18)
[2021-02-17 13:43] LABS: VBG HCO3 31 mEq/L (21-27); VBG PCO2 58 mmHg (41-51); VBG PH 7.34 pH Units (7.32-7.42); VBG PO2 37 mmHg (25-50)
[2021-02-17 14:01] LABS: Magnesium 1.8 mg/dL (1.6-2.6); Phosphorous 3.6 mg/dL (2.7-4.5)
[2021-02-17 14:11] LABS: Troponin I 0.04 ng/mL (< 0.04)
[2021-02-17] MEDS ORDERED: Levalbuterol Neb 0.63 MG/3 ML IH PRN (14:49)
[2021-02-17] MEDS: DilTIAZem CD (24hr) 180 MG CAP.ER.24H PO SCH (16:18)
[2021-02-17] MEDS ORDERED: *HR* Heparin 5,000 UNIT/ML VIAL SQ SCH (18:00)
[2021-02-17] MEDS ORDERED: *HR* Warfarin 2.5 MG TABLET PO ONE (18:00)
[2021-02-17] MEDS ORDERED: Warfarin perPT PO PRN (18:00)
[2021-02-17] MEDS ORDERED: Ibuprofen 400 MG TABLET PO PRN (20:05)
[2021-02-17] MEDS ORDERED: Insulin LISPRO 300 UNITS/3 ML VIAL SUBQ SCH (21:00)
[2021-02-17] MEDS ORDERED: Lactulose 200 GM, Sodium Chloride IRRigation 700 ML RC PRN (21:00)
[2021-02-17] MEDS: OXcarbazepine 150 MG TABLET PO SCH (21:06)
[2021-02-17] MEDS: Lactulose Oral Soln 20 GM/30 ML UDC PO SCH (21:08)
[2021-02-17] MEDS: Budesonide/Formoterol 160/4.5 1 PUFF INH IH SCH (22:29)
[2021-02-18] MEDS ORDERED: 0.9 % Sodium Chloride 1,000 ML IVC SCH (00:30)
[2021-02-18] MEDS: Insulin LISPRO 300 UNITS/3 ML VIAL SUBQ SCH ×4 (02:56→17:40)
[2021-02-18] MEDS: cefTRIAXone 1,000 MG in 0.9 % Sodium Chloride Mini Bag 100 ML IVPB SCH (03:00)
[2021-02-18 05:12] LABS: VBG HCO3 29 mEq/L (21-27); VBG PCO2 52 mmHg (41-51); VBG PH 7.36 pH Units (7.32-7.42); VBG PO2 46 mmHg (25-50)
[2021-02-18 05:16] LABS: Basophils # 0.1 K/mcL (0.0-0.2); Basophils % 0.7 %; Eosinophils # 0.1 K/mcL (0.0-0.6); Eosinophils % 0.7 %; Hematocrit 34.3 % (35.3-44.9); Hemoglobin 10.7 g/dL (11.5-15.4); Immature Granulocytes % 0.5 % (0-4); Lymphocytes % 22.9 %; Mean Corpuscular HGB Conc 31.2 g/dL (31.6-35.5); Mean Corpuscular Hemoglobin 31.9 pg (28.0-33.3); Mean Corpuscular Volume 102.4 fL (83.0-100.0); Mean Platelet Volume 10.2 fL (9.4-12.4); Monocytes # 1.1 K/mcL (0.0-1.3); Monocytes % 12.7 %; Neutrophils # 5.3 K/mcL (1.6-8.9); Platelet Count 221 K/mcL (140-400); Red Blood Count 3.35 M/mcL (3.82-4.97); Red Cell Distribution Width 16.6 % (11.5-14.5); Segmented Neutrophils % 62.5 %; White Blood Count 8.5 K/mcL (4.3-11.1)
[2021-02-18 05:23] LABS: INR 2.5; Prothrombin Time 28.2 Seconds (9.4-12.1)
[2021-02-18 05:32] LABS: Albumin 2.9 g/dL (3.5-5.7); Albumin/Globulin Ratio 0.9 (1.1-2.2); Bilirubin,Direct 0.7 mg/dL (0.0-0.2); Bilirubin,Indirect 0.5 mg/dL (0.0-1.0); Bilirubin,Total 1.2 mg/dL (0.3-1.0); Calcium 8.4 mg/dL (8.6-10.3); Globulin 3.2 g/dL (2.4-3.5); Potassium 4.3 mEq/L (3.5-5.1); Total Protein 6.1 g/dL (6.4-8.9)
[2021-02-18] MEDS: Budesonide/Formoterol 160/4.5 1 PUFF INH IH SCH ×2 (07:31→20:24)
[2021-02-18] MEDS: Metoprolol XL (24 HR) Succ 50 MG TAB.ER.24H PO SCH (09:48)
[2021-02-18] MEDS: DilTIAZem CD (24hr) 180 MG CAP.ER.24H PO SCH (09:48)
[2021-02-18] MEDS: Lactulose Oral Soln 20 GM/30 ML UDC PO SCH ×3 (09:48→20:30)
[2021-02-18] MEDS: Aspirin Enteric Coated 81 MG Tablet PO SCH (09:48)
[2021-02-18] MEDS: OXcarbazepine 150 MG TABLET PO SCH ×2 (09:48→20:30)
[2021-02-18 10:16] LABS: Adenovirus Not Detected (Not Detect); Bordetella Pertussis Not Detected (Not Detect); Chlamydophila pneumoniae Not Detected (Not Detect); Coronavirus 229E Not Detected (Not Detect); Coronavirus HKU1 Not Detected (Not Detect); Coronavirus NL63 Not Detected (Not Detect); Coronavirus OC43 Not Detected (Not Detect); Human Metapneumovirus Not Detected (Not Detect); Human Rhinovirus/Enterovirus Not Detected (Not Detect); Influenza A Subtype 2009 H1 Not Detected (Not Detect); Influenza B Not Detected (Not Detect); Parainfluenza Virus 1 Not Detected (Not Detect); Parainfluenza Virus 2 DETECTED (Not Detect); Parainfluenza Virus 3 Not Detected (Not Detect); Parainfluenza Virus 4 Not Detected (Not Detect); Respiratory Syncytial Virus Not Detected (Not Detect); SARS-CoV-2 Not Detected (Not Detect)
[2021-02-18 10:17] LABS: Mycoplasma pneumoniae Not Detected (Not Detect)
[2021-02-18] MEDS ORDERED: Isovue-370 500 ML BOTTLE IVP ONE (15:19)
[2021-02-18] MEDS ORDERED: Ringers Solution, Lactated 1,000 ML IVC SCH (17:15)
[2021-02-18] MEDS ORDERED: *HR* Warfarin 2.5 MG TABLET PO ONE (18:00)
[2021-02-19] MEDS: cefTRIAXone 1,000 MG in 0.9 % Sodium Chloride Mini Bag 100 ML IVPB SCH (03:14)
[2021-02-19 06:37] LABS: Basophils % 0.4 %; Eosinophils # 0.1 K/mcL (0.0-0.6); Eosinophils % 0.9 %; Hematocrit 30.1 % (35.3-44.9); Hemoglobin 9.5 g/dL (11.5-15.4); Immature Granulocytes % 0.5 % (0-4); Lymphocytes # 1.6 K/mcL (0.6-4.6); Lymphocytes % 17.3 %; Mean Corpuscular HGB Conc 31.6 g/dL (31.6-35.5); Mean Corpuscular Hemoglobin 32.2 pg (28.0-33.3); Monocytes # 1.1 K/mcL (0.0-1.3); Neutrophils # 6.4 K/mcL (1.6-8.9); Platelet Count 216 K/mcL (140-400); Red Blood Count 2.95 M/mcL (3.82-4.97); Red Cell Distribution Width 16.6 % (11.5-14.5); Segmented Neutrophils % 68.9 %; White Blood Count 9.3 K/mcL (4.3-11.1)
[2021-02-19 06:49] LABS: INR 2.8; Prothrombin Time 30.6 Seconds (9.4-12.1)
[2021-02-19 06:57] LABS: Bilirubin,Direct 0.5 mg/dL (0.0-0.2); Bilirubin,Indirect 0.4 mg/dL (0.0-1.0); Bilirubin,Total 0.9 mg/dL (0.3-1.0); Calcium 8.4 mg/dL (8.6-10.3); Globulin 2.9 g/dL (2.4-3.5); Potassium 4.1 mEq/L (3.5-5.1); Total Protein 5.9 g/dL (6.4-8.9)
[2021-02-19] MEDS: DilTIAZem CD (24hr) 180 MG CAP.ER.24H PO SCH (09:33)
[2021-02-19] MEDS: Lactulose Oral Soln 20 GM/30 ML UDC PO SCH ×3 (09:33→20:32)
[2021-02-19] MEDS: Aspirin Enteric Coated 81 MG Tablet PO SCH (09:34)
[2021-02-19] MEDS: OXcarbazepine 150 MG TABLET PO SCH ×2 (09:34→20:55)
[2021-02-19] MEDS: Metoprolol XL (24 HR) Succ 50 MG TAB.ER.24H PO SCH (09:35)
[2021-02-19] MEDS: Insulin LISPRO 300 UNITS/3 ML VIAL SUBQ SCH ×3 (09:35→17:00)
[2021-02-19] MEDS: Budesonide/Formoterol 160/4.5 1 PUFF INH IH SCH ×2 (10:39→19:58)
[2021-02-19] MEDS: Gabapentin 300 MG CAPSULE PO SCH (17:00)
[2021-02-19] MEDS ORDERED: *HR* Warfarin 2 MG TABLET PO ONE (18:00)
[2021-02-19] MEDS ORDERED: Gabapentin 300 MG CAPSULE PO SCH (21:00)
[2021-02-20] MEDS: cefTRIAXone 1,000 MG in 0.9 % Sodium Chloride Mini Bag 100 ML IVPB SCH (03:21)
[2021-02-20 06:50] LABS: VBG HCO3 28 mEq/L (21-27); VBG PCO2 46 mmHg (41-51); VBG PH 7.39 pH Units (7.32-7.42); VBG PO2 108 mmHg (25-50)
[2021-02-20 07:45] LABS: Basophils % 0.4 %; Eosinophils # 0.2 K/mcL (0.0-0.6); Eosinophils % 1.9 %; Hematocrit 32.7 % (35.3-44.9); Hemoglobin 10.3 g/dL (11.5-15.4); Immature Granulocytes % 0.6 % (0-4); Lymphocytes # 1.7 K/mcL (0.6-4.6); Lymphocytes % 18.9 %; Mean Corpuscular HGB Conc 31.5 g/dL (31.6-35.5); Mean Corpuscular Hemoglobin 32.4 pg (28.0-33.3); Mean Corpuscular Volume 102.8 fL (83.0-100.0); Mean Platelet Volume 9.8 fL (9.4-12.4); Monocytes # 0.9 K/mcL (0.0-1.3); Monocytes % 10.5 %; Neutrophils # 6.1 K/mcL (1.6-8.9); Platelet Count 223 K/mcL (140-400); Red Blood Count 3.18 M/mcL (3.82-4.97); Red Cell Distribution Width 16.1 % (11.5-14.5); Segmented Neutrophils % 67.7 %
[2021-02-20 07:50] LABS: INR 2.5; Prothrombin Time 28.2 Seconds (9.4-12.1)
[2021-02-20 08:34] LABS: Albumin 3.3 g/dL (3.5-5.7); Bilirubin,Direct 0.3 mg/dL (0.0-0.2); Bilirubin,Indirect 0.6 mg/dL (0.0-1.0); Bilirubin,Total 0.9 mg/dL (0.3-1.0); Calcium 8.7 mg/dL (8.6-10.3); Globulin 3.4 g/dL (2.4-3.5); Potassium 4.4 mEq/L (3.5-5.1); Total Protein 6.7 g/dL (6.4-8.9)
[2021-02-20] MEDS: Budesonide/Formoterol 160/4.5 1 PUFF INH IH SCH (08:49)
[2021-02-20] MEDS: OXcarbazepine 150 MG TABLET PO SCH (08:55)
[2021-02-20] MEDS: Aspirin Enteric Coated 81 MG Tablet PO SCH (08:56)
[2021-02-20] MEDS: DilTIAZem CD (24hr) 180 MG CAP.ER.24H PO SCH (08:56)
[2021-02-20] MEDS: Metoprolol XL (24 HR) Succ 50 MG TAB.ER.24H PO SCH (08:56)
[2021-02-20] MEDS: Gabapentin 300 MG CAPSULE PO SCH (08:56)
[2021-02-20] MEDS: Insulin LISPRO 300 UNITS/3 ML VIAL SUBQ SCH ×2 (08:57→12:10)
[2021-02-20] MEDS: Lactulose Oral Soln 20 GM/30 ML UDC PO SCH (09:03)
[2021-02-20 10:25] VITALS: BP 149/70; PULSE 70; TEMP 98.4; O2SAT 96
[2021-02-20] MEDS ORDERED: *HR* Warfarin 2.5 MG TABLET PO ONE (18:00)
== END 2021-02-20 15:18 | disposition home health service (06) ==
LOC: CDU 03:02 → EMEROOARM 03:02 → SUATTDRO 06:32 → CDU 06:56 → 3ANU 19:14
PROVIDERS: ADMIT Family Medicine; ATTEND Internal Medicine

== ENCOUNTER 2021-03-22 22:37 | Observation (INO) ==
[2021-03-23 00:28] LABS: Basophils # 0.1 K/mcL (0.0-0.2); Basophils % 0.4 %; Eosinophils # 0.2 K/mcL (0.0-0.6); Eosinophils % 1.3 %; Hematocrit 32.9 % (35.3-44.9); Hemoglobin 10.4 g/dL (11.5-15.4); Immature Granulocytes % 0.5 % (0-4); Lymphocytes # 1.3 K/mcL (0.6-4.6); Lymphocytes % 11.7 %; Mean Corpuscular HGB Conc 31.6 g/dL (31.6-35.5); Mean Corpuscular Hemoglobin 31.3 pg (28.0-33.3); Mean Corpuscular Volume 99.1 fL (83.0-100.0); Mean Platelet Volume 10.1 fL (9.4-12.4); Monocytes # 1.2 K/mcL (0.0-1.3); Monocytes % 10.6 %; Neutrophils # 8.4 K/mcL (1.6-8.9); Platelet Count 227 K/mcL (140-400); Red Blood Count 3.32 M/mcL (3.82-4.97); Red Cell Distribution Width 15.1 % (11.5-14.5); Segmented Neutrophils % 75.5 %; White Blood Count 11.1 K/mcL (4.3-11.1)
[2021-03-23 00:33] LABS: Albumin 3.2 g/dL (3.5-5.7); Albumin/Globulin Ratio 0.8 (1.1-2.2); Bilirubin,Direct 0.5 mg/dL (0.0-0.2); Bilirubin,Indirect 0.5 mg/dL (0.0-1.0); Calcium 8.4 mg/dL (8.6-10.3); Globulin 3.9 g/dL (2.4-3.5); Magnesium 1.7 mg/dL (1.6-2.6); Potassium 3.9 mEq/L (3.5-5.1); Total Protein 7.1 g/dL (6.4-8.9)
[2021-03-23 00:42] LABS: Troponin I 0.06 ng/mL (< 0.04)
[2021-03-23 01:34] LABS: Bacteria,Urine Few per hpf (None-Few); Bilirubin,Urine Negative (Negative); Blood,Urine Large (Negative); Clarity,Urine Ex.Turbid (Clear); Color,Urine Yellow (Yellow); Glucose,Urine (UA) 500 mg/dL (Normal); Ketones,Urine Negative (Negative); Leukocyte Esterase,Urine Large (Negative); Nitrite,Urine Positive (Negative); PH,Urine 5.5 pH Units (5.0-8.0); Protein,Urine 70 mg/dL (Neg-Trace); RBC,Urine 50-100 per hpf (0-3); Specific Gravity,Urine 1.011 (1.010-1.025); Squamous Epithelial Cell,Urine Many per hpf (None-Few); Urobilinogen,Urine Normal (Normal); WBC,Urine TNTC per hpf (0-3)
[2021-03-23] MEDS ORDERED: cefTRIAXone 1,000 MG in 0.9 % Sodium Chloride Mini Bag 100 ML IVPB ONE (02:25)
[2021-03-23] MEDS ORDERED: Ondansetron 4 MG/2 ML VIAL IVP ONE (02:57)
[2021-03-23] MEDS ORDERED: Lactulose 200 GM, Sodium Chloride IRRigation 700 ML RC ONE (05:03)
[2021-03-23] MEDS ORDERED: Naloxone 0.4 MG/ML INJ IVP PRN (05:50)
[2021-03-23] MEDS ORDERED: Dextrose Gel 15 GM/37.5 ML TUBE PO PRN ×2 (05:53)
[2021-03-23] MEDS ORDERED: D5% in Water 1,000 ML IVC PRN (05:53)
[2021-03-23] MEDS ORDERED: *HR* Dextrose 50 % in Water (Syg) 50 ML SYRINGE IVP PRN (05:53)
[2021-03-23] MEDS ORDERED: Ipratropium/Albuterol Neb 3 ML IH PRN (05:54)
[2021-03-23] MEDS: Lactulose Oral Soln 20 GM/30 ML UDC PO SCH ×2 (09:33→20:41)
[2021-03-23] MEDS: Insulin LISPRO 300 UNITS/3 ML VIAL SUBQ SCH ×4 (09:37→20:45)
[2021-03-23] MEDS ORDERED: Ondansetron 4 MG/2 ML VIAL IVP PRN (14:32)
[2021-03-23] MEDS ORDERED: *HR* Warfarin 2.5 MG TABLET PO ONE (18:00)
[2021-03-23] MEDS ORDERED: Warfarin perPT PO PRN (18:00)
[2021-03-23] MEDS: OXcarbazepine 150 MG TABLET PO SCH (20:41)
[2021-03-23] MEDS: Budesonide/Formoterol 160/4.5 1 PUFF INH IH SCH (22:32)
[2021-03-24 07:14] LABS: Basophils # 0.1 K/mcL (0.0-0.2); Basophils % 0.6 %; Eosinophils # 0.2 K/mcL (0.0-0.6); Eosinophils % 2.1 %; Hematocrit 31.6 % (35.3-44.9); Hemoglobin 9.8 g/dL (11.5-15.4); Immature Granulocytes % 0.5 % (0-4); Lymphocytes # 1.8 K/mcL (0.6-4.6); Lymphocytes % 19.1 %; Mean Corpuscular Hemoglobin 31.1 pg (28.0-33.3); Mean Corpuscular Volume 100.3 fL (83.0-100.0); Mean Platelet Volume 9.7 fL (9.4-12.4); Monocytes # 1.1 K/mcL (0.0-1.3); Monocytes % 11.5 %; Neutrophils # 6.3 K/mcL (1.6-8.9); Platelet Count 244 K/mcL (140-400); Red Blood Count 3.15 M/mcL (3.82-4.97); Red Cell Distribution Width 15.6 % (11.5-14.5); Segmented Neutrophils % 66.2 %; White Blood Count 9.6 K/mcL (4.3-11.1)
[2021-03-24 07:22] LABS: INR 1.9; Prothrombin Time 21.2 Seconds (9.4-12.1)
[2021-03-24 08:13] LABS: Albumin 2.9 g/dL (3.5-5.7); Albumin/Globulin Ratio 0.9 (1.1-2.2); Calcium 8.4 mg/dL (8.6-10.3); Globulin 3.4 g/dL (2.4-3.5); Potassium 4.1 mEq/L (3.5-5.1); Total Protein 6.3 g/dL (6.4-8.9)
[2021-03-24] MEDS: Budesonide/Formoterol 160/4.5 1 PUFF INH IH SCH ×2 (08:26→20:24)
[2021-03-24] MEDS: Lactulose Oral Soln 20 GM/30 ML UDC PO SCH ×2 (09:43→19:48)
[2021-03-24] MEDS: OXcarbazepine 150 MG TABLET PO SCH ×2 (09:44→19:48)
[2021-03-24] MEDS: DilTIAZem CD (24hr) 180 MG CAP.ER.24H PO SCH (09:44)
[2021-03-24] MEDS: Aspirin Enteric Coated 81 MG Tablet PO SCH (09:44)
[2021-03-24] MEDS: Metoprolol XL (24 HR) Succ 50 MG TAB.ER.24H PO SCH (09:44)
[2021-03-24] MEDS: cefTRIAXone 1,000 MG in 0.9 % Sodium Chloride Mini Bag 100 ML IVPB SCH (09:45)
[2021-03-24] MEDS: Spironolactone 25 MG TABLET PO SCH (09:45)
[2021-03-24] MEDS: Insulin LISPRO 300 UNITS/3 ML VIAL SUBQ SCH ×4 (09:45→20:50)
[2021-03-24] MEDS ORDERED: *HR* Warfarin 2.5 MG TABLET PO ONE (18:00)
[2021-03-24] MEDS: Nystatin POWDER 30 GM BOTTLE TP SCH (19:48)
[2021-03-25 01:56] LABS: Basophils % 0.4 %; Eosinophils # 0.5 K/mcL (0.0-0.6); Eosinophils % 4.3 %; Hematocrit 37.2 % (35.3-44.9); Immature Granulocytes % 0.4 % (0-4); Lymphocytes % 17.9 %; Mean Corpuscular HGB Conc 31.5 g/dL (31.6-35.5); Mean Corpuscular Hemoglobin 31.9 pg (28.0-33.3); Mean Corpuscular Volume 101.4 fL (83.0-100.0); Monocytes % 9.1 %; Neutrophils # 7.5 K/mcL (1.6-8.9); Platelet Count 246 K/mcL (140-400); Red Blood Count 3.67 M/mcL (3.82-4.97); Red Cell Distribution Width 15.4 % (11.5-14.5); Segmented Neutrophils % 67.9 %
[2021-03-25 01:57] LABS: Hemoglobin 11.7 g/dL (11.5-15.4)
[2021-03-25 04:10] VITALS: PULSE 70
[2021-03-25 06:45] LABS: INR 2.2
[2021-03-25] MEDS: Budesonide/Formoterol 160/4.5 1 PUFF INH IH SCH ×2 (07:59→20:29)
[2021-03-25 08:07] LABS: Albumin 3.1 g/dL (3.5-5.7); Albumin/Globulin Ratio 0.9 (1.1-2.2); Bilirubin,Total 0.9 mg/dL (0.3-1.0); Calcium 8.4 mg/dL (8.6-10.3); Globulin 3.3 g/dL (2.4-3.5); Potassium 3.9 mEq/L (3.5-5.1); Total Protein 6.4 g/dL (6.4-8.9)
[2021-03-25] MEDS: Insulin LISPRO 300 UNITS/3 ML VIAL SUBQ SCH ×4 (09:17→20:40)
[2021-03-25] MEDS: cefTRIAXone 1,000 MG in 0.9 % Sodium Chloride Mini Bag 100 ML IVPB SCH ×2 (09:19→19:44)
[2021-03-25] MEDS: OXcarbazepine 150 MG TABLET PO SCH ×2 (09:21→20:42)
[2021-03-25] MEDS: DilTIAZem CD (24hr) 180 MG CAP.ER.24H PO SCH (09:21)
[2021-03-25] MEDS: Spironolactone 25 MG TABLET PO SCH (09:21)
[2021-03-25] MEDS: Metoprolol XL (24 HR) Succ 50 MG TAB.ER.24H PO SCH (09:21)
[2021-03-25] MEDS: Nystatin POWDER 30 GM BOTTLE TP SCH ×2 (09:22→20:42)
[2021-03-25] MEDS: Aspirin Enteric Coated 81 MG Tablet PO SCH (09:22)
[2021-03-25] MEDS: Lactulose Oral Soln 20 GM/30 ML UDC PO SCH ×2 (09:22→20:41)
[2021-03-25] MEDS: cephALEXin 500 MG CAPSULE PO SCH ×2 (11:18→20:41)
[2021-03-25] MEDS: methylPREDNISolone 4 MG TABLET PO SCH (13:29)
[2021-03-25] MEDS: Insulin DETEMIR 100 UNIT/ML X5UNITS SUBQ SCH (14:10)
[2021-03-25] MEDS: Gabapentin 300 MG CAPSULE PO SCH (14:11)
[2021-03-25] MEDS ORDERED: *HR* Warfarin 2.5 MG TABLET PO ONE (18:00)
[2021-03-25] MEDS ORDERED: Gabapentin 300 MG CAPSULE PO SCH (21:00)
[2021-03-26 07:42] LABS: Basophils # 0.1 K/mcL (0.0-0.2); Basophils % 0.4 %; Eosinophils % 0.2 %; Hematocrit 35.4 % (35.3-44.9); Hemoglobin 11.3 g/dL (11.5-15.4); Immature Granulocytes % 1.1 % (0-4); Lymphocytes # 1.8 K/mcL (0.6-4.6); Lymphocytes % 15.5 %; Mean Corpuscular HGB Conc 31.9 g/dL (31.6-35.5); Mean Corpuscular Hemoglobin 32.2 pg (28.0-33.3); Mean Corpuscular Volume 100.9 fL (83.0-100.0); Mean Platelet Volume 9.5 fL (9.4-12.4); Monocytes # 0.7 K/mcL (0.0-1.3); Monocytes % 5.9 %; Neutrophils # 8.8 K/mcL (1.6-8.9); Platelet Count 298 K/mcL (140-400); Red Blood Count 3.51 M/mcL (3.82-4.97); Red Cell Distribution Width 15.5 % (11.5-14.5); Segmented Neutrophils % 76.9 %; White Blood Count 11.5 K/mcL (4.3-11.1)
[2021-03-26 07:52] LABS: Albumin 3.4 g/dL (3.5-5.7); Albumin/Globulin Ratio 0.9 (1.1-2.2); Bilirubin,Total 0.8 mg/dL (0.3-1.0); Calcium 8.7 mg/dL (8.6-10.3); Globulin 3.9 g/dL (2.4-3.5); Potassium 4.3 mEq/L (3.5-5.1); Total Protein 7.3 g/dL (6.4-8.9)
[2021-03-26 08:01] LABS: Prothrombin Time 22.3 Seconds (9.4-12.1)
[2021-03-26] MEDS: Budesonide/Formoterol 160/4.5 1 PUFF INH IH SCH (08:17)
[2021-03-26] MEDS: methylPREDNISolone 4 MG TABLET PO SCH (08:55)
[2021-03-26] MEDS: cephALEXin 500 MG CAPSULE PO SCH (08:56)
[2021-03-26] MEDS: DilTIAZem CD (24hr) 180 MG CAP.ER.24H PO SCH (08:56)
[2021-03-26] MEDS: OXcarbazepine 150 MG TABLET PO SCH (08:56)
[2021-03-26] MEDS: Aspirin Enteric Coated 81 MG Tablet PO SCH (08:56)
[2021-03-26] MEDS: Gabapentin 300 MG CAPSULE PO SCH ×2 (08:56→15:55)
[2021-03-26] MEDS: Spironolactone 25 MG TABLET PO SCH (08:56)
[2021-03-26] MEDS: Insulin LISPRO 300 UNITS/3 ML VIAL SUBQ SCH ×2 (08:57→12:24)
[2021-03-26] MEDS: Metoprolol XL (24 HR) Succ 50 MG TAB.ER.24H PO SCH (08:57)
[2021-03-26] MEDS: Insulin DETEMIR 100 UNIT/ML X5UNITS SUBQ SCH (08:58)
[2021-03-26] MEDS: Lactulose Oral Soln 20 GM/30 ML UDC PO SCH (08:59)
[2021-03-26 10:22] VITALS: BP 152/71; TEMP 97.7; O2SAT 94
[2021-03-26] MEDS: Nystatin POWDER 30 GM BOTTLE TP SCH (12:24)
[2021-03-26] MEDS ORDERED: Bumetanide 1 MG TABLET PO SCH (17:00)
[2021-03-26] MEDS ORDERED: *HR* Warfarin 2.5 MG TABLET PO ONE (18:00)
[2021-03-27] MEDS ORDERED: methylPREDNISolone 4 MG TABLET PO SCH ×2 (09:00)
[2021-03-28] MEDS ORDERED: methylPREDNISolone 4 MG TABLET PO SCH (09:00)
[2021-03-29] MEDS ORDERED: methylPREDNISolone 4 MG TABLET PO SCH (09:00)
[2021-03-30] MEDS ORDERED: methylPREDNISolone 4 MG TABLET PO SCH (09:00)
[2021-03-31] MEDS ORDERED: methylPREDNISolone 4 MG TABLET PO SCH (09:00)
== END 2021-03-26 16:45 | disposition hospice, home (50) ==
LOC: 3ANU 22:37 → EMEROOARM 22:37 → SUATTDRO 03-23 05:54 → 3ANU 03-23 06:14
PROVIDERS: ADMIT Internal Medicine; ATTEND Family Medicine

== ENCOUNTER 2021-04-27 16:32 | Observation (INO) ==
[2021-04-27] MEDS ORDERED: Ondansetron 4 MG/2 ML VIAL IVP ONE (17:16)
[2021-04-27] MEDS ORDERED: *HR* HYDROmorphone (PF) 1 MG/ML SYRINGE IVP ONE (17:16)
[2021-04-27] MEDS ORDERED: 0.9 % Sodium Chloride 1,000 ML IVC ONE (17:16)
[2021-04-27] MEDS ORDERED: Isovue-370 500 ML BOTTLE IVP ONE (17:18)
[2021-04-27] MEDS ORDERED: Acetaminophen 325 MG TABLET PO ONE (17:23)
[2021-04-27 17:37] LABS: Eosinophils % 0.7 %; Hematocrit 35.6 % (35.3-44.9); Hemoglobin 11.1 g/dL (11.5-15.4); Immature Granulocytes % 0.5 % (0-4); Lymphocytes % 16.1 %; Mean Corpuscular HGB Conc 31.2 g/dL (31.6-35.5); Mean Corpuscular Hemoglobin 30.8 pg (28.0-33.3); Mean Corpuscular Volume 98.9 fL (83.0-100.0); Mean Platelet Volume 10.2 fL (9.4-12.4); Monocytes % 10.7 %; Platelet Count 284 K/mcL (140-400); Red Cell Distribution Width 14.5 % (11.5-14.5); Segmented Neutrophils % 71.7 %
[2021-04-27 17:38] LABS: Basophils % 0.3 %; Eosinophils # 0.1 K/mcL (0.0-0.6); Lymphocytes # 2.1 K/mcL (0.6-4.6); Monocytes # 1.4 K/mcL (0.0-1.3); Neutrophils # 9.3 K/mcL (1.6-8.9)
[2021-04-27 18:00] LABS: Albumin 2.9 g/dL (3.5-5.7); Albumin/Globulin Ratio 0.8 (1.1-2.2); Bilirubin,Direct 0.6 mg/dL (0.0-0.2); Bilirubin,Indirect 0.5 mg/dL (0.0-1.0); Bilirubin,Total 1.1 mg/dL (0.3-1.0); Calcium 8.3 mg/dL (8.6-10.3); Globulin 3.8 g/dL (2.4-3.5); Potassium 3.6 mEq/L (3.5-5.1); Total Protein 6.7 g/dL (6.4-8.9); Troponin I 0.07 ng/mL (< 0.04)
[2021-04-27 19:56] LABS: Bilirubin,Urine Negative (Negative); Blood,Urine Moderate (Negative); Clarity,Urine Ex.Turbid (Clear); Color,Urine Yellow (Yellow); Glucose,Urine (UA) Normal (Normal); Ketones,Urine Negative (Negative); Leukocyte Esterase,Urine Large (Negative); Nitrite,Urine Negative (Negative); PH,Urine 5.5 pH Units (5.0-8.0); Protein,Urine 70 mg/dL (Neg-Trace); Specific Gravity,Urine 1.017 (1.010-1.025); Urobilinogen,Urine Normal (Normal)
[2021-04-27 20:00] LABS: Squamous Epithelial Cell,Urine Few per hpf (None-Few); WBC,Urine TNTC per hpf (0-3)
[2021-04-27 20:01] LABS: Bacteria,Urine Many per hpf (None-Few)
[2021-04-27] MEDS ORDERED: cefTRIAXone 1,000 MG in 0.9 % Sodium Chloride Mini Bag 100 ML IVPB ONE (20:16)
[2021-04-27] MEDS ORDERED: Ibuprofen 400 MG TABLET PO PRN (20:39)
[2021-04-27] MEDS ORDERED: Naloxone 0.4 MG/ML INJ IVP PRN (20:39)
[2021-04-27] MEDS ORDERED: Melatonin 3 MG TABLET PO PRN (20:39)
[2021-04-27] MEDS ORDERED: Ondansetron ODT 4 MG TAB.RAPDIS SL PRN (20:39)
[2021-04-27] MEDS ORDERED: Ketorolac 30 MG/ML VIAL IM PRN (20:39)
[2021-04-27 21:12] LABS: Influenza A PCR Negative (Negative); Influenza B PCR Negative (Negative); Resp. Syncytial Virus PCR Negative (Negative)
[2021-04-27 21:13] LABS: SARS-CoV-2 by PCR (In House) Negative (Negative)
[2021-04-27 21:57] LABS: Basophils # 0.1 K/mcL (0.0-0.2); Basophils % 0.4 %; Eosinophils # 0.1 K/mcL (0.0-0.6); Eosinophils % 1.2 %; Hematocrit 31.6 % (35.3-44.9); Hemoglobin 10.2 g/dL (11.5-15.4); Immature Granulocytes % 0.5 % (0-4); Lymphocytes # 1.8 K/mcL (0.6-4.6); Lymphocytes % 15.5 %; Mean Corpuscular HGB Conc 32.3 g/dL (31.6-35.5); Mean Corpuscular Hemoglobin 31.5 pg (28.0-33.3); Mean Corpuscular Volume 97.5 fL (83.0-100.0); Mean Platelet Volume 10.1 fL (9.4-12.4); Monocytes # 1.3 K/mcL (0.0-1.3); Monocytes % 11.1 %; Neutrophils # 8.2 K/mcL (1.6-8.9); Platelet Count 264 K/mcL (140-400); Red Blood Count 3.24 M/mcL (3.82-4.97); Red Cell Distribution Width 14.4 % (11.5-14.5); Segmented Neutrophils % 71.3 %; White Blood Count 11.6 K/mcL (4.3-11.1)
[2021-04-27] MEDS: 0.9 % Sodium Chloride 1,000 ML IVC SCH (23:30)
[2021-04-28 03:36] LABS: Albumin 2.8 g/dL (3.5-5.7); Albumin/Globulin Ratio 0.8 (1.1-2.2); Globulin 3.4 g/dL (2.4-3.5); Potassium 4.2 mEq/L (3.5-5.1); Total Protein 6.2 g/dL (6.4-8.9)
[2021-04-28 03:39] LABS: Troponin I 0.06 ng/mL (< 0.04)
[2021-04-28] MEDS: cefTRIAXone 1,000 MG in Water for inj. (sterile) 10 ML IVP SCH (08:59)
[2021-04-28] MEDS ORDERED: Dextrose Gel 15 GM/37.5 ML TUBE PO PRN ×2 (12:43)
[2021-04-28] MEDS ORDERED: D5% in Water 1,000 ML IVC PRN (12:43)
[2021-04-28] MEDS ORDERED: *HR* Dextrose 50 % in Water (Syg) 50 ML SYRINGE IVP PRN (12:43)
[2021-04-28] MEDS ORDERED: *HR* Warfarin 5 MG TABLET PO SCH (13:15)
[2021-04-28] MEDS: Lactulose Oral Soln 20 GM/30 ML UDC PO SCH ×2 (14:07→20:07)
[2021-04-28] MEDS: Gabapentin 300 MG CAPSULE PO SCH ×2 (14:07→20:09)
[2021-04-28 14:16] LABS: INR 3.6
[2021-04-28] MEDS ORDERED: *HR* HYDROmorphone (PF) 1 MG/ML SYRINGE IVP PRN (16:45)
[2021-04-28] MEDS ORDERED: Bumetanide 1 MG TABLET PO SCH (17:00)
[2021-04-28] MEDS: Insulin LISPRO 300 UNITS/3 ML VIAL SUBQ SCH (17:13)
[2021-04-28] MEDS ORDERED: Warfarin perPT PO PRN (18:00)
[2021-04-28] MEDS: Budesonide/Formoterol 160/4.5 1 PUFF INH IH SCH (19:35)
[2021-04-28] MEDS: dexAMETHasone 4 MG TABLET PO SCH (20:09)
[2021-04-28] MEDS: Cholecalciferol (D-3) 1,000 UNIT (25MCG) TABLET PO SCH (20:09)
[2021-04-28] MEDS: Aspirin Enteric Coated 81 MG Tablet PO SCH (20:09)
[2021-04-28] MEDS: OXcarbazepine 150 MG TABLET PO SCH (20:09)
[2021-04-29 01:57] LABS: Basophils # 0.1 K/mcL (0.0-0.2); Basophils % 0.5 %; Eosinophils # 0.2 K/mcL (0.0-0.6); Eosinophils % 1.9 %; Hematocrit 30.3 % (35.3-44.9); Hemoglobin 9.6 g/dL (11.5-15.4); Immature Granulocytes % 0.8 % (0-4); Lymphocytes # 1.3 K/mcL (0.6-4.6); Lymphocytes % 12.4 %; Mean Corpuscular HGB Conc 31.7 g/dL (31.6-35.5); Mean Corpuscular Hemoglobin 31.1 pg (28.0-33.3); Mean Corpuscular Volume 98.1 fL (83.0-100.0); Mean Platelet Volume 10.3 fL (9.4-12.4); Monocytes # 1.2 K/mcL (0.0-1.3); Monocytes % 11.6 %; Neutrophils # 7.4 K/mcL (1.6-8.9); Platelet Count 275 K/mcL (140-400); Red Blood Count 3.09 M/mcL (3.82-4.97); Red Cell Distribution Width 14.5 % (11.5-14.5); Segmented Neutrophils % 72.8 %; White Blood Count 10.2 K/mcL (4.3-11.1)
[2021-04-29 02:03] LABS: INR 2.5; Prothrombin Time 28.1 Seconds (9.4-12.1)
[2021-04-29 02:16] LABS: Potassium 4.2 mEq/L (3.5-5.1)
[2021-04-29] MEDS: Insulin LISPRO 300 UNITS/3 ML VIAL SUBQ SCH ×3 (07:46→20:50)
[2021-04-29] MEDS: cefTRIAXone 1,000 MG in Water for inj. (sterile) 10 ML IVP SCH (07:47)
[2021-04-29] MEDS: Cholecalciferol (D-3) 1,000 UNIT (25MCG) TABLET PO SCH ×2 (07:48→20:50)
[2021-04-29] MEDS: OXcarbazepine 150 MG TABLET PO SCH ×2 (07:48→20:51)
[2021-04-29] MEDS: Gabapentin 300 MG CAPSULE PO SCH ×3 (07:48→20:50)
[2021-04-29] MEDS: dexAMETHasone 4 MG TABLET PO SCH (07:49)
[2021-04-29] MEDS: DilTIAZem CD (24hr) 180 MG CAP.ER.24H PO SCH (07:49)
[2021-04-29] MEDS: Cyanocobalamin (B-12) 1,000 MCG TABLET PO SCH (07:49)
[2021-04-29] MEDS: Lactulose Oral Soln 20 GM/30 ML UDC PO SCH ×3 (07:50→20:49)
[2021-04-29] MEDS: Insulin DETEMIR 100 UNIT/ML X5UNITS SUBQ SCH (07:54)
[2021-04-29] MEDS: Budesonide/Formoterol 160/4.5 1 PUFF INH IH SCH ×2 (08:27→20:22)
[2021-04-29] MEDS: 0.9 % Sodium Chloride 1,000 ML IVC SCH (15:17)
[2021-04-29] MEDS ORDERED: *HR* Warfarin 2.5 MG TABLET PO ONE (18:00)
[2021-04-29] MEDS: Bumetanide 1 MG TABLET PO SCH (20:50)
[2021-04-29] MEDS: Aspirin Enteric Coated 81 MG Tablet PO SCH (20:51)
[2021-04-30 03:29] LABS: INR 1.5; Prothrombin Time 16.6 Seconds (9.4-12.1)
[2021-04-30] MEDS: OXcarbazepine 150 MG TABLET PO SCH (08:11)
[2021-04-30] MEDS: Lactulose Oral Soln 20 GM/30 ML UDC PO SCH (08:11)
[2021-04-30] MEDS: dexAMETHasone 4 MG TABLET PO SCH (08:11)
[2021-04-30] MEDS: Insulin DETEMIR 100 UNIT/ML X5UNITS SUBQ SCH (08:11)
[2021-04-30] MEDS: Bumetanide 1 MG TABLET PO SCH (08:12)
[2021-04-30] MEDS: Cholecalciferol (D-3) 1,000 UNIT (25MCG) TABLET PO SCH (08:13)
[2021-04-30] MEDS: Gabapentin 300 MG CAPSULE PO SCH (08:13)
[2021-04-30] MEDS: Cyanocobalamin (B-12) 1,000 MCG TABLET PO SCH (08:13)
[2021-04-30] MEDS: DilTIAZem CD (24hr) 180 MG CAP.ER.24H PO SCH (08:13)
[2021-04-30] MEDS: cefTRIAXone 1,000 MG in Water for inj. (sterile) 10 ML IVP SCH (08:16)
[2021-04-30] MEDS: Insulin LISPRO 300 UNITS/3 ML VIAL SUBQ SCH (08:18)
[2021-04-30] MEDS: Budesonide/Formoterol 160/4.5 1 PUFF INH IH SCH (08:19)
[2021-04-30] MEDS ORDERED: cephALEXin 500 MG CAPSULE PO SCH (09:00)
[2021-04-30 10:47] VITALS: BP 136/73; PULSE 70; TEMP 98.6; O2SAT 93
[2021-04-30] MEDS ORDERED: *HR* Warfarin 2.5 MG TABLET PO ONE (18:00)
== END 2021-04-30 14:03 | disposition hospice, home (50) ==
LOC: EMEROOARM 16:32 → 3ANU 16:32 → SUATTDRO 20:31 → 3ANU 21:18
PROVIDERS: ADMIT Internal Medicine; ATTEND General Practice